=== PATIENT | male | born 1955 | race Asian ===

== ENCOUNTER 2022-03-27 02:49 | Inpatient (IN) | payer OTHER ==
[2022-03-27] VITALS (21 sets, daily range): BP systolic 92–142
[~2022-03-27] VITALS: Ht 175.3 cm; Wt 76.9 kg
[~2022-03-27 02:49] MED LIST: ASA81 PO; BLOO-1360 XX; BUDE0.5A INH; CHOL500013 PO; DIF100 PO; DOXY100C5 PO; INSU100V SQ; INSU100V9 SQ; IPRA3AMP9 INH; LIP20 PO; MULT-1145 PO; PRED20TA PO; TAMS0.4C96 PO; THEO80SO4 PO
--- NOTE | 2022-03-27 02:50 | NUR ---
Placed in room 2 . Placed on security monitor, blood pressure machine and pulse oximeter. To gown for exam. Side rails up. Report given to MIO DOVE.
--- NOTE | 2022-03-27 02:51 | NUR ---
DR. ARAYA AT BEDSIDE
[2022-03-27] MEDS ORDERED: ALBUTEROL SULFATE 0.083% 2.5 MG/3 ML VIAL.NEB INH ONE (03:00)
[2022-03-27] MEDS ORDERED: methylPREDNISolone SOD SUCC/PF 62.5 MG/ML VIAL IVP ONE (03:00)
[2022-03-27] MEDS ORDERED: MAGNESIUM SULFATE 50 ML IV ONE (03:00)
--- NOTE | 2022-03-27 03:11 | NUR ---
RSI DR. ARAYA AT BEDSIDE, MIO RN, CAPRICE RN, MIROSLAVA RT AT BEDSIDE 0311 20MG ETOMIDATE GIVEN IVP BY MIO RN, 100MG SUCCINYLCHOLINE GIVEN IVP BY MIO RN. 0313 7.5 ETT PLACED, 25CM @ LIP, +CO2 COLOR CHANGE, +BREATH SOUNDS AUSCULTATED BILATERALLY, QUIET OVER STOMACH. CXR CALLED FOR CONFIRMATION
[2022-03-27 03:13] LABS: BASOPHILS % (AUTO) 0.2 % (0.0-2.0); EOSINOPHILS # (AUTO) 0.1 K/uL (0.0-0.4); EOSINOPHILS % (AUTO) 0.5 % (0.0-4.0); HEMATOCRIT 38.6 % (36-54); HEMOGLOBIN 12.9 g/dL (14.0-18.0); LYMPHOCYTES % (AUTO) 9.9 % (20.5-51.5); MEAN CORPUSCULAR HEMOGLOBIN 32 pg (27-31); MEAN CORPUSCULAR HGB CONC 34 % (32-36); MEAN CORPUSCULAR VOLUME 95 fL (79.0-98.0); MONOCYTES # (AUTO) 0.7 K/uL (0.0-1.0); MONOCYTES % (AUTO) 3.6 % (1.7-9.3); NEUTROPHILS # (AUTO) 17.2 K/uL (1.8-7.7); NEUTROPHILS % (AUTO) 85.8 % (40.0-70.0); PLATELET COUNT (AUTO) 222 K/uL (130-430); RED BLOOD CELL COUNT(AUTO) 4.08 MIL/uL (4.2-6.2); RED CELL DISTRIBUTION WIDTH 14.8 % (9.0-15.0); WHITE BLOOD COUNT (AUTO) 20.1 K/uL (4.8-10.8)
[2022-03-27] MEDS ORDERED: ETOMIDATE 20 MG/ 10 ML VIAL (AMIDATE) IVP ONE (03:15)
[2022-03-27] MEDS ORDERED: PROPOFOL DRIP 100 ML IV ONE ×2 (03:15→05:30)
[2022-03-27] MEDS ORDERED: SUCCINYLCHOLINE CHLORIDE 20 MG/ML(QUELICIN) IVP ONE (03:15)
[2022-03-27] MEDS ORDERED: cefTRIAXone 1 GM IVPB PREMIX 50 ML IV ONE (03:30)
[2022-03-27] MEDS ORDERED: AZITHROMYCIN 500 MG in NS 250 ML IV ONE (03:30)
--- NOTE | 2022-03-27 03:30 | NUR ---
16 FR OG tube placed. Per MD Michelle, NG tube is in the right spot.
[2022-03-27 03:32] LABS: CALCIUM 8.4 mg/dL (8.4-11.0); CREATININE 0.72 mg/dL (0.55-1.30)
--- NOTE | 2022-03-27 03:33 | NUR ---
COVID AND MRSA SWABS SENT TO LAB
[2022-03-27 03:37] LABS: ALBUMIN 2.5 g/dL (3.4-4.8); TOTAL BILIRUBIN 0.9 mg/dL (0.0-1.0)
[2022-03-27] MEDS ORDERED: AZITHROMYCIN 500 MG/VIAL (ZITHROMAX) IV ONE ×2 (03:44→04:41)
[2022-03-27] MEDS ORDERED: NACL 0.9% 1,000 ML IV ONE ×2 (03:45→04:15)
[2022-03-27] MEDS ORDERED: PROPOFOL 200MG/ 20ML VIAL (DIPRIVAN) IV ONE (03:45)
--- NOTE | 2022-03-27 03:45 | NUR ---
Note cachorro in ED - 03/27/22 at 0420 by [email or web address] 16 FR nichelle placed and draining yellow urine at this time. Urine sample received and sent.
--- NOTE | 2022-03-27 03:53 | NUR ---
# 16 FR Mason catheter with use of sterile technique. Immediate return of 50 cc CLEAR YELLOW urine noted. Bedside drainage bag placed below level of bladder. Urine sample collected and sent to lab. Pt tolerated procedure WELL.
[2022-03-27 04:03] LABS: BILIRUBIN,URINE NEGATIVE (NEGATIVE); CLARITY/URINE CLEAR (CLEAR); COLOR,URINE YELLOW (YELLOW); GLUCOSE,URINE 3+ (NEGATIVE); KETONES,URINE NEGATIVE (NEGATIVE); LEUKOCYTE ESTERASE ,URINE NEGATIVE (NEGATIVE); NITRITE, URINE NEGATIVE (NEGATIVE); PH,URINE 6.5 (5.0-8.0); PROTEIN URINE 2+ (NEGATIVE); UROBILINOGEN,URINE 0.2 (0.2-1.0)
--- NOTE | 2022-03-27 04:22 | NUR ---
Propofol gtt ER supplemental documentation see EMAR as well; 0327 started propofol gtt @ 5mcg/kg/min. (Pt weigh 77.111kg) BP 146/[address] Bolanos admin 10ml/100mg bolus. Pt actively coughing and attempting to self extubate. BP 147/93.HR 153bpm. 0340 BP 77/44 Hr 108bpm. Propofol gtt maintained at 5mcg/kg/min. made aware. Received order for normal saline bolus 30ml per kg. 0400 Propofol titrated to 10MCG/KG/MIN. BP 101/66. HR 141, 98%. 0415 Propofol titrated to 15MG/KG/MIN. 100/65, HR 136, 96%.
[2022-03-27 04:45] LABS: BACTERIA,URINE FEW /HPF (None Seen); BLOOD, URINE TRACE (NEGATIVE); RBC,URINE 0-3 /HPF (0-3)
[2022-03-27 04:46] LABS: MUCUS,URINE None Seen /LPF (None Seen)
--- NOTE | 2022-03-27 04:47 | NUR ---
Propofol infusion; Titrated to 20MCG/KG/min. BP 101/64, 123, 96%
[2022-03-27] MEDS ORDERED: PRED10TA PO (05:22)
[2022-03-27] MEDS ORDERED: D5LR 1,000 ML IV SCH (05:30)
--- NOTE | 2022-03-27 05:32 | NUR ---
Admit bed requested Patient will be admitted to care of Dr. ALVAREZ. Admitted to ICU Diagnosis ACUTE RESPIRATORY FAILURE Inpatient (Yes or No) YES Observation (Yes or No) NO Orientation concerns or request close to nursing station (Yes or No) NO Covid Status NEG On vent or bipap VENTILATOR Isolation requirements NO Needs a sitter NO From Home (Yes or if No enter name of facility) [facility] Requires Dialysis (Yes or No) NO Med Rec Completed (Yes of No) YES
[2022-03-27] MEDS ORDERED: NOREPINEPHRINE BITARTRATE 4 MG in NS 246 ML IV ONE (05:45)
[2022-03-27] MEDS ORDERED: MIDAZOLAM IN NACL,ISO-OSMOT/PF 100 ML IV ONE ×2 (05:47→09:09)
--- NOTE | 2022-03-27 05:50 | NUR ---
Sysystolic BP in the 80's. orders received at this time.
[2022-03-27] MEDS: PIPERACILLIN/TAZO 3.375 GM in NS 50 ML IV SCH ×4 (06:00→23:52)
[2022-03-27] MEDS: NOREPINEPHRINE BITARTRATE 4 MG in NS 246 ML IV PRN ×4 (06:00→23:04)
--- NOTE | 2022-03-27 06:35 | NUR ---
The pt is wiped, cleaned, and repositioned in the bed.
--- NOTE | 2022-03-27 07:10 | NUR ---
No acute changes in the pt's condition. All tubes, lines remain intact at this time. No s/sx of acute distress noted at this time. Report to DERRELL Cunningham
--- NOTE | 2022-03-27 07:15 | NUR ---
ASSUMED PATIENT CARE EYE CLOSE,ON COIN BOX INSPECTOR, PROPOFOL AND LEVOPHEDE ARE INFUSING, OG TUBE AND EMERSON IN PLACE, , PATIENT VENTED, WILL CONTINUE TO MONITOR.
[2022-03-27] MEDS ORDERED: ACETAMINOPHEN 650 MG/20.3 ML UDC GT PRN (07:30)
[2022-03-27] MEDS ORDERED: METOCLOPRAMIDE HCL 10 MG/2 ML VIAL IVP PRN (07:30)
[2022-03-27] MEDS ORDERED: IPRATROPIUM/ALBUTEROL SULFATE 3 ML AMPUL.NEB (DUONEB) INH SCH (07:30)
[2022-03-27] MEDS ORDERED: FUROSEMIDE 20 MG/2 ML VIAL IVP ONE (07:30)
[2022-03-27] MEDS ORDERED: INSULIN REGULAR, HUMAN 10 UNITS/0.1 ML, 3 ML VIAL ONE (07:33)
[2022-03-27] MEDS ORDERED: PIPERACILLIN/TAZOBACTAM 3.375 GM/VIAL (ZOSYN) IV ONE (07:35)
[2022-03-27] MEDS: INSULIN REGULAR, HUMAN 100 UNITS/ML, 3 ML VIAL (humuLIN R) SUBCUT PRN ×3 (07:40→18:30)
[2022-03-27] MEDS ORDERED: INSULIN REGULAR, HUMAN 100 UNITS/ML, 3 ML VIAL (humuLIN R) SUBCUT PRN (08:00)
[2022-03-27] MEDS ORDERED: FUROSEMIDE 20 MG/2 ML VIAL ONE (08:06)
--- NOTE | 2022-03-27 08:30 | NUR ---
ADMITTING PHYSICIAN DR ALVAREZ AT BEDSIDE
[2022-03-27] MEDS ORDERED: BUDESONIDE 0.5 MG/2 ML AMPUL.NEB INH SCH (09:00)
[2022-03-27] MEDS: INSULIN GLARGINE 100 UNITS/ML, 10 ML VIAL SQ SCH ×2 (09:00→21:09)
--- NOTE | 2022-03-27 09:00 | NUR ---
Patient will be admitted to [facility]. Admitted to ICU unit. Will go to room 107. Belongings list completed. Complete and up to date summary report printed. SBAR report to be given at bedside with opportunity for questions.
--- NOTE | 2022-03-27 09:03 | NUR ---
RT NOTES 0903 PT MOVED TO 127A VIA 15L BVM. PT SATURATING 97%. NO INCIDENT HAPPENED. PT HOOKED TO VENT POST TRANSPORT. WILL CONT TO MONITOR PT.
[2022-03-27] MEDS: MIDAZOLAM IN NACL,ISO-OSMOT/PF 100 ML IV PRN (09:19)
[2022-03-27] MEDS ORDERED: MIDAZOLAM IN NACL,ISO-OSMOT/PF 100 ML IV PRN (09:30)
[2022-03-27] MEDS: FLUCONAZOLE 200 mg/ NS 100 ML IV SCH (09:32)
[2022-03-27] MEDS: FUROSEMIDE 20 MG/2 ML VIAL IVP SCH (09:32)
[2022-03-27] MEDS: ASPIRIN 81 MG TAB.CHEW PO SCH (09:33)
[2022-03-27] MEDS: TAMSULOSIN HCL 0.4 MG CAP PO SCH ×2 (09:33→21:07)
[2022-03-27] MEDS: PANTOPRAZOLE SODIUM 40 MG/VIAL (PROTONIX) IVP SCH (09:33)
[2022-03-27] MEDS: METHYLPREDNISOLONE SOD SUCC 40 MG/ML VIAL IVP SCH ×3 (09:34→21:10)
[2022-03-27] MEDS: MULTIVITS,CA,MINERALS/IRON/FA 1 TABLET PO SCH ×2 (09:34→21:08)
[2022-03-27] MEDS: CHOLECALCIFEROL (VITAMIN D3) 2,000 UNIT TABLET PO SCH ×2 (09:34→21:08)
[2022-03-27] MEDS: MAGNESIUM OXIDE 400 MG TABLET PO SCH (09:34)
[2022-03-27] MEDS: ASCORBIC ACID 500 MG TABLET PO SCH ×2 (09:34→21:08)
[2022-03-27] MEDS: ENOXAPARIN SODIUM 40 MG/0.4 ML SYRINGE SUBCUT SCH (09:34)
[2022-03-27] MEDS: PROPOFOL DRIP 100 ML IV PRN ×3 (09:50→23:02)
[2022-03-27] MEDS ORDERED: NOREPINEPHRINE 4 MG/4 ML VIAL IV ONE (09:59)
--- NOTE | 2022-03-27 10:00 | NUR ---
Called Dr. Hess with a consult, spoke with Miroslava from the exchange
[2022-03-27] MEDS: THEOPHYLLINE ANHYDROUS 200 MG TAB.SR.12H PO SCH ×2 (10:35→21:16)
[2022-03-27 11:14] LABS: INR 1.2 (0.80-1.20)
[2022-03-27] MEDS: ALBUTEROL SULFATE 0.083% 2.5 MG/3 ML VIAL.NEB INH SCH ×4 (11:54→23:20)
[2022-03-27] MEDS: IPRATROPIUM BROM 0.5 MG/2.5 ML VIAL.NEB (ATROVENT) INH SCH ×4 (11:55→23:21)
--- NOTE | 2022-03-27 12:00 | NUR ---
GLUCERNA 1.5 TF OGT STARTED AT 20CC/HR. PT HAS 0 RESIDUAL. GOAL RATE OF 50CC/HR. 100CC H20 FLUSH GIVEN, SCHEDULED Q8H.
--- NOTE | 2022-03-27 12:35 | NUR ---
PICC LINE DERRELL COTA AT BEDSIDE. CONSENT SIGNED BY SOON, TELEPHONE CONSENT FROM MD ALVAREZ. T.O. ORDER FOR PICC LINE IN CHART.
[2022-03-27] MEDS ORDERED: LR 1,000 ML IV SCH (19:00)
[2022-03-27] MEDS: LR 1,000 ML IV SCH (19:24)
[2022-03-27] MEDS: BUDESONIDE 0.5 MG/2 ML AMPUL.NEB INH SCH (20:18)
[2022-03-27] MEDS: ATORVASTATIN 20 MG TABLET PO SCH (21:07)
[2022-03-28] VITALS (36 sets, daily range): BP systolic 93–125
[2022-03-28] MEDS: ALBUTEROL SULFATE 0.083% 2.5 MG/3 ML VIAL.NEB INH SCH ×6 (03:05→23:00)
[2022-03-28] MEDS: IPRATROPIUM BROM 0.5 MG/2.5 ML VIAL.NEB (ATROVENT) INH SCH ×6 (03:06→23:00)
[2022-03-28] MEDS: METHYLPREDNISOLONE SOD SUCC 40 MG/ML VIAL IVP SCH ×4 (04:28→21:56)
[2022-03-28] MEDS: MIDAZOLAM IN NACL,ISO-OSMOT/PF 100 ML IV PRN ×2 (04:40→14:40)
[2022-03-28] MEDS: AZITHROMYCIN 500 MG in NS 250 ML IV SCH (05:41)
[2022-03-28] MEDS: PIPERACILLIN/TAZO 3.375 GM in NS 50 ML IV SCH ×4 (05:41→23:36)
[2022-03-28 05:58] LABS: BILIRUBIN,URINE NEGATIVE (NEGATIVE); COLOR,URINE YELLOW (YELLOW); GLUCOSE,URINE 3+ (NEGATIVE); KETONES,URINE NEGATIVE (NEGATIVE); LEUKOCYTE ESTERASE ,URINE NEGATIVE (NEGATIVE); NITRITE, URINE NEGATIVE (NEGATIVE); PROTEIN URINE NEGATIVE (NEGATIVE); UROBILINOGEN,URINE 0.2 (0.2-1.0)
[2022-03-28 06:08] LABS: BLOOD, URINE TRACE (NEGATIVE); CLARITY/URINE HAZY (CLEAR)
[2022-03-28 06:11] LABS: BACTERIA,URINE None Seen /HPF (None Seen); WBC,URINE 0-3 /HPF (0-3)
[2022-03-28 06:17] LABS: HEMATOCRIT 30.6 % (36-54); HEMOGLOBIN 10.1 g/dL (14.0-18.0); LYMPHOCYTES # (AUTO) 1.1 K/uL (1.0-5.5); LYMPHOCYTES % (AUTO) 9.1 % (20.5-51.5); MEAN CORPUSCULAR HEMOGLOBIN 32 pg (27-31); MEAN CORPUSCULAR HGB CONC 33 % (32-36); MEAN CORPUSCULAR VOLUME 96 fL (79.0-98.0); MONOCYTES # (AUTO) 0.3 K/uL (0.0-1.0); MONOCYTES % (AUTO) 2.1 % (1.7-9.3); NEUTROPHILS # (AUTO) 11.2 K/uL (1.8-7.7); NEUTROPHILS % (AUTO) 88.8 % (40.0-70.0); PLATELET COUNT (AUTO) 175 K/uL (130-430); RED BLOOD CELL COUNT(AUTO) 3.18 MIL/uL (4.2-6.2); RED CELL DISTRIBUTION WIDTH 15.3 % (9.0-15.0); WHITE BLOOD COUNT (AUTO) 12.6 K/uL (4.8-10.8)
[2022-03-28] MEDS: PROPOFOL DRIP 100 ML IV PRN ×3 (06:23→18:38)
[2022-03-28] MEDS: NOREPINEPHRINE BITARTRATE 4 MG in NS 246 ML IV PRN (06:25)
--- NOTE | 2022-03-28 06:27 | NUR ---
ALL CARES DONE, REMAINS ON LEVOPHED AND SEDATION RESTRAINTS D/C FULLY SEDATED, FIO2 DOWN TO 50% TOLERATING WELL SATS-98%
[2022-03-28 06:42] LABS: ALBUMIN 1.8 g/dL (3.4-4.8); CREATININE 0.81 mg/dL (0.55-1.30); PHOSPHORUS 3.2 mg/dL (2.7-4.5); TOTAL BILIRUBIN 0.5 mg/dL (0.0-1.0)
[2022-03-28] MEDS: INSULIN REGULAR, HUMAN 100 UNITS/ML, 3 ML VIAL (humuLIN R) SUBCUT PRN ×3 (06:51→17:13)
[2022-03-28 07:04] LABS: CALCIUM 6.8 mg/dL (8.4-11.0)
[2022-03-28] MEDS: BUDESONIDE 0.5 MG/2 ML AMPUL.NEB INH SCH ×2 (07:42→19:56)
[2022-03-28] MEDS: FUROSEMIDE 20 MG/2 ML VIAL IVP SCH ×2 (08:55→21:18)
[2022-03-28] MEDS: FLUCONAZOLE 200 mg/ NS 100 ML IV SCH (08:56)
[2022-03-28] MEDS: INSULIN GLARGINE 100 UNITS/ML, 10 ML VIAL SQ SCH ×2 (08:58→21:16)
[2022-03-28] MEDS: PANTOPRAZOLE SODIUM 40 MG/VIAL (PROTONIX) IVP SCH (08:58)
[2022-03-28] MEDS: ASCORBIC ACID 500 MG TABLET PO SCH ×2 (08:59→21:12)
[2022-03-28] MEDS: MAGNESIUM OXIDE 400 MG TABLET PO SCH (08:59)
[2022-03-28] MEDS: THEOPHYLLINE ANHYDROUS 200 MG TAB.SR.12H PO SCH (08:59)
[2022-03-28] MEDS: ASPIRIN 81 MG TAB.CHEW PO SCH (08:59)
[2022-03-28] MEDS: MULTIVITS,CA,MINERALS/IRON/FA 1 TABLET PO SCH ×2 (08:59→21:11)
[2022-03-28] MEDS: TAMSULOSIN HCL 0.4 MG CAP PO SCH ×2 (08:59→21:09)
[2022-03-28] MEDS: ENOXAPARIN SODIUM 40 MG/0.4 ML SYRINGE SUBCUT SCH (08:59)
[2022-03-28] MEDS: CHOLECALCIFEROL (VITAMIN D3) 2,000 UNIT TABLET PO SCH ×2 (08:59→21:12)
[2022-03-28] MEDS ORDERED: THEOPHYLLINE ANHYDROUS 80 MG/15 ML UDC PO ONE (09:30)
[2022-03-28] MEDS: NOREPINEPHRINE BITARTRATE 8 MG in NS 242 ML IV PRN ×2 (13:20→23:34)
[2022-03-28] MEDS: LR 1,000 ML IV SCH (16:32)
[2022-03-28] MEDS ORDERED: CALCIUM CHLORIDE 1 GM in NS 100 ML IV ONE (19:00)
[2022-03-28] MEDS ORDERED: THEOPHYLLINE ANHYDROUS 80 MG/15 ML UDC PO SCH (21:00)
[2022-03-28] MEDS: ALBUMIN HUMAN 25% 50 ML IV SCH ×2 (21:08→23:35)
[2022-03-28] MEDS: POTASSIUM CHLORIDE 20 MEQ/PKT PACKET PO SCH (21:18)
[2022-03-28] MEDS: ATORVASTATIN 20 MG TABLET PO SCH (21:18)
[2022-03-29] VITALS (34 sets, daily range): BP systolic 87–121
[2022-03-29] MEDS: PROPOFOL DRIP 100 ML IV PRN ×2 (02:25→11:28)
[2022-03-29] MEDS: MIDAZOLAM IN NACL,ISO-OSMOT/PF 100 ML IV PRN (02:26)
[2022-03-29] MEDS: IPRATROPIUM BROM 0.5 MG/2.5 ML VIAL.NEB (ATROVENT) INH SCH ×5 (02:30→20:52)
[2022-03-29] MEDS: ALBUTEROL SULFATE 0.083% 2.5 MG/3 ML VIAL.NEB INH SCH ×5 (02:30→20:52)
[2022-03-29] MEDS: METHYLPREDNISOLONE SOD SUCC 40 MG/ML VIAL IVP SCH ×4 (03:59→23:07)
[2022-03-29] MEDS: ALBUMIN HUMAN 25% 50 ML IV SCH (03:59)
[2022-03-29] MEDS: AZITHROMYCIN 500 MG in NS 250 ML IV SCH (05:39)
[2022-03-29] MEDS: PIPERACILLIN/TAZO 3.375 GM in NS 50 ML IV SCH ×4 (05:39→23:07)
[2022-03-29 06:41] LABS: BASOPHILS % (AUTO) 0.1 % (0.0-2.0); EOSINOPHILS % (AUTO) 0.1 % (0.0-4.0); HEMATOCRIT 24.3 % (36-54); HEMOGLOBIN 8.6 g/dL (14.0-18.0); LYMPHOCYTES # (AUTO) 0.6 K/uL (1.0-5.5); LYMPHOCYTES % (AUTO) 6.6 % (20.5-51.5); MEAN CORPUSCULAR HEMOGLOBIN 33 pg (27-31); MEAN CORPUSCULAR HGB CONC 35 % (32-36); MEAN CORPUSCULAR VOLUME 94 fL (79.0-98.0); MONOCYTES # (AUTO) 0.3 K/uL (0.0-1.0); MONOCYTES % (AUTO) 3.5 % (1.7-9.3); NEUTROPHILS # (AUTO) 7.7 K/uL (1.8-7.7); NEUTROPHILS % (AUTO) 89.7 % (40.0-70.0); PLATELET COUNT (AUTO) 153 K/uL (130-430); RED BLOOD CELL COUNT(AUTO) 2.59 MIL/uL (4.2-6.2); WHITE BLOOD COUNT (AUTO) 8.6 K/uL (4.8-10.8)
[2022-03-29] MEDS: INSULIN REGULAR, HUMAN 100 UNITS/ML, 3 ML VIAL (humuLIN R) SUBCUT PRN ×4 (06:54→20:19)
[2022-03-29 07:11] LABS: ALBUMIN 2.4 g/dL (3.4-4.8); CALCIUM 7.7 mg/dL (8.4-11.0); CREATININE 0.71 mg/dL (0.55-1.30); PHOSPHORUS 2.8 mg/dL (2.7-4.5); TOTAL BILIRUBIN 0.4 mg/dL (0.0-1.0)
[2022-03-29] MEDS: BUDESONIDE 0.5 MG/2 ML AMPUL.NEB INH SCH ×2 (07:14→20:52)
--- NOTE | 2022-03-29 07:14 | NUR ---
REMAINS ON SEDATION WEAN DOWN VERSED TO 5 MG, AND DIPRIVAN TO 25 MCG NOT WAKING UP YET TITRATED LEVOPHED TO 0.03 MCG/KG/MIN. CHG BATH GIVEN TURN AND REPOSITION TO COMFORT, CONT CARE. DR. JACOBSEN NOT ROUNDED OVERNIGHT.
--- NOTE | 2022-03-29 08:18 | NUR ---
PATIENT IN BED, NO SIGNS AND SYMPTOMS OF DISTRESS, GLUCERNA 1.5 RUNNING 50ML/HR, EMERSON DRAINING CLEAR YELLOW URINE, PICC RIGHT UPPER ARM, SKIN INTACT, AT BEDSIDE UPDATED ON PLAN OF CARE, VENT AC 14 TV 500 FIO2 45% PEEP 5. SAFETY MEASURES IN PLACE.
[2022-03-29] MEDS: TAMSULOSIN HCL 0.4 MG CAP PO SCH ×2 (08:36→20:15)
[2022-03-29] MEDS: ENOXAPARIN SODIUM 40 MG/0.4 ML SYRINGE SUBCUT SCH (08:36)
[2022-03-29] MEDS: ASCORBIC ACID 500 MG TABLET PO SCH ×2 (08:36→20:15)
[2022-03-29] MEDS: CHOLECALCIFEROL (VITAMIN D3) 2,000 UNIT TABLET PO SCH ×2 (08:36→20:15)
[2022-03-29] MEDS: MULTIVITS,CA,MINERALS/IRON/FA 1 TABLET PO SCH (08:36)
[2022-03-29] MEDS: FLUCONAZOLE 200 mg/ NS 100 ML IV SCH (08:37)
[2022-03-29] MEDS: PANTOPRAZOLE SODIUM 40 MG/VIAL (PROTONIX) IVP SCH (08:37)
[2022-03-29] MEDS: MAGNESIUM OXIDE 400 MG TABLET PO SCH (08:38)
[2022-03-29] MEDS: ASPIRIN 81 MG TAB.CHEW PO SCH (08:38)
[2022-03-29] MEDS: POTASSIUM CHLORIDE 20 MEQ/PKT PACKET PO SCH ×2 (08:38→20:15)
[2022-03-29] MEDS: FUROSEMIDE 20 MG/2 ML VIAL IVP SCH (08:38)
[2022-03-29] MEDS: INSULIN GLARGINE 100 UNITS/ML, 10 ML VIAL SQ SCH ×2 (08:40→20:19)
--- NOTE | 2022-03-29 13:04 | NUR ---
Dietitian Recommendations * Consider adjusting Glucerna rate to 45 mL/hr (goal) Provides (w/ propofol): 1742 kcal, 89 g PRO, 820 mL free water Meets: 95% est kcal, 98% lower end PRO, 45% est fluid needs * Consider FWF of 150 mL q4h, or per MD BARRAGAN, MPH, RD Please refer to RD Assessment for further details. Thanks! Addendum: 03/29/22 at [address] Amended: Links added.
--- NOTE | 2022-03-29 14:48 | NUR ---
SPOKE WITH ANGEL REQUESTING ORDERS FROM DR. JACOBSEN.
--- NOTE | 2022-03-29 14:53 | NUR ---
DR ALVAREZ ROUNDED ON PATIENT, NOTIFIED OF PATIENT LACK OF RESPONSE TO PAIN STIMULATION ON EXTREMITIES AND FIXED UPWARD GAZE, ORDERED TO HOLD VERSED FOR NOW AND THAT HE WILL COME BACK TO ASSESS THE PATIENT. ALSO ORDERED TO PAGE DR JACOBSEN BECAUSE HE HAS NOT ROUNDED ON THE PATIENT AND OR MADE A NOTE WITH RECOMMENDATIONS. VERSED ON HOLD NOW.
--- NOTE | 2022-03-29 15:06 | NUR ---
SPOKE WITH DR JACOBSEN, GAVE UPDATE OVER THE PHONE ON PATIENT STATUS, ORDERED ABG. CALLED RT AND MADE AWARE OF ABG ORDER.
--- NOTE | 2022-03-29 16:05 | NUR ---
RT NOTES Per Rn, Dr Stanford was made aware of increased PIP, stated previous scan/test indicated fibrosis.
--- NOTE | 2022-03-29 17:44 | NUR ---
DR ALVAREZ ROUNDED ON PATIENT, MADE AWARE OF LACK OF PAIN RESPONSE IN EXTREMITIES AND FIXED UPWARD GAZE AND THAT VERSED IS OFF AND PROPOFOL IS RUNNING AT 20MCG/KG/MIN. ORDERED TO CONTINUE WEANING SEDATION.
--- NOTE | 2022-03-29 19:30 | NUR ---
PM ASSESSMENT REPORT RECEIVED FROM AM RN. PT RECEIVED IN BED WITH EYES CLOSED, SEDATED. VSS, NO S/S OF ACUTE DISTRESS NOTED. PT INTUBATED, VENT SETTINGS: AC 14, TV 500, FIO2 40%, +5. KETURAH PICC IN PLACE PATENT AND INTACT, 20G PIV TO L/R HAND AND RAC PATENT AND INTACT. OGT IN PLACE INFUSING TF PER ORDERS. EMERSON CATH DRAINING URINE TO GRAVITY. HOB ELEVATED, BED LOCKED IN LOWEST POSITION, CALL LIGHT IN REACH, WILL CONTINUE TO MONITOR PT.
[2022-03-29] MEDS: ATORVASTATIN 20 MG TABLET PO SCH (20:15)
--- NOTE | 2022-03-29 21:11 | NUR ---
DR. ANN-MARIE GARNICA AT BEDSIDE. UPDATES PROVIDED.
--- NOTE | 2022-03-29 22:15 | NUR ---
PT HAD LARGE AMOUNT OF STOOL AT THIS TIME. DUYEN CARE PROVIDED AND LINENS CHANGED. CHG BATH GIVEN. PT TOLERATED WELL.
[2022-03-29] MEDS ORDERED: METHYLPREDNISOLONE SOD SUCC 40 MG/ML VIAL ONE (23:09)
[2022-03-30] VITALS (31 sets, daily range): BP systolic 95–142
[2022-03-30] MEDS: PROPOFOL DRIP 100 ML IV PRN ×2 (00:09→06:14)
[2022-03-30] MEDS: AZITHROMYCIN 500 MG in NS 250 ML IV SCH (05:00)
[2022-03-30] MEDS: PIPERACILLIN/TAZO 3.375 GM in NS 50 ML IV SCH ×3 (05:01→18:07)
--- NOTE | 2022-03-30 05:15 | NUR ---
BM PT HAD LARGE BM AT THIS TIME. DUYEN CARE PROVIDED AND LINENS CHANGED.
[2022-03-30 06:07] LABS: BASOPHILS % (AUTO) 0.1 % (0.0-2.0); HEMATOCRIT 27.9 % (36-54); HEMOGLOBIN 9.6 g/dL (14.0-18.0); LYMPHOCYTES # (AUTO) 0.6 K/uL (1.0-5.5); LYMPHOCYTES % (AUTO) 8.5 % (20.5-51.5); MEAN CORPUSCULAR HEMOGLOBIN 33 pg (27-31); MEAN CORPUSCULAR HGB CONC 34 % (32-36); MEAN CORPUSCULAR VOLUME 96 fL (79.0-98.0); MONOCYTES # (AUTO) 0.3 K/uL (0.0-1.0); MONOCYTES % (AUTO) 3.5 % (1.7-9.3); NEUTROPHILS # (AUTO) 6.5 K/uL (1.8-7.7); NEUTROPHILS % (AUTO) 87.9 % (40.0-70.0); PLATELET COUNT (AUTO) 144 K/uL (130-430); RED BLOOD CELL COUNT(AUTO) 2.91 MIL/uL (4.2-6.2); RED CELL DISTRIBUTION WIDTH 15.5 % (9.0-15.0); WHITE BLOOD COUNT (AUTO) 7.4 K/uL (4.8-10.8)
[2022-03-30] MEDS: INSULIN REGULAR, HUMAN 100 UNITS/ML, 3 ML VIAL (humuLIN R) SUBCUT PRN ×3 (06:14→18:11)
[2022-03-30 06:37] LABS: CALCIUM 7.3 mg/dL (8.4-11.0); CREATININE 0.59 mg/dL (0.55-1.30); PHOSPHORUS 2.7 mg/dL (2.7-4.5)
--- NOTE | 2022-03-30 07:00 | NUR ---
-Open note: Received report for the slot shift supervisor Tata DOVE, pt 66 years old was admitted to [facility] back in Feb . At that time, he was diagnosed with community-acquired pneumonia post viral pneumonia. Pt was extubated and was sent to the [facility] for Physical Therapy. He was brought to the Emergency Room on secondary on 03-27-22 to shortness of breath and respiratory distress, and was admitted to the ICU. Pt was intubated on 03-27-22 7.5cm, at 24 at lip, setting of 14AC, 500V, 35% O2, PEEP 5. Rt upper midline double lumen running Diprivan at 25mcg/kg/min, right hand peripheral 20G running DKO 5ml/hr, and left IV peripheral. OG tube running Glucerna 1.5cal @55ml/hr with Q4hr 150cc.Pt with Mason.
[2022-03-30] MEDS: ALBUTEROL SULFATE 0.083% 2.5 MG/3 ML VIAL.NEB INH SCH ×5 (07:20→22:40)
[2022-03-30] MEDS: IPRATROPIUM BROM 0.5 MG/2.5 ML VIAL.NEB (ATROVENT) INH SCH ×5 (07:20→22:40)
[2022-03-30] MEDS: BUDESONIDE 0.5 MG/2 ML AMPUL.NEB INH SCH ×2 (07:21→20:15)
--- NOTE | 2022-03-30 07:29 | NUR ---
SPOKE WITH MUNIR REQUESTING ORDERS FROM DR. JACOBSEN.
--- NOTE | 2022-03-30 07:29 | NUR ---
RT at bed side, order for cpap need to be verified with Dr. Stanford. Dr. Stanford was page, waiting for respond.
--- NOTE | 2022-03-30 07:29 | NUR ---
RT NOTES Spoke to Rn regarding concerns about the CPAP order. Clarification of order is warranted before proceeding with the SBT.
--- NOTE | 2022-03-30 07:45 | NUR ---
and daughter at bedside, status update given.
[2022-03-30] MEDS: CHOLECALCIFEROL (VITAMIN D3) 2,000 UNIT TABLET PO SCH ×2 (08:23→21:00)
[2022-03-30] MEDS: TAMSULOSIN HCL 0.4 MG CAP PO SCH ×2 (08:23→21:00)
[2022-03-30] MEDS: MULTIVITS,CA,MINERALS/IRON/FA 1 TABLET PO SCH (08:23)
[2022-03-30] MEDS: METHYLPREDNISOLONE SOD SUCC 40 MG/ML VIAL IVP SCH ×2 (08:24→18:08)
[2022-03-30] MEDS: ENOXAPARIN SODIUM 40 MG/0.4 ML SYRINGE SUBCUT SCH (08:26)
[2022-03-30] MEDS: POTASSIUM CHLORIDE 20 MEQ/PKT PACKET PO SCH (08:26)
[2022-03-30] MEDS: PANTOPRAZOLE SODIUM 40 MG/VIAL (PROTONIX) IVP SCH (08:26)
[2022-03-30] MEDS: ASPIRIN 81 MG TAB.CHEW PO SCH (08:26)
[2022-03-30] MEDS: ASCORBIC ACID 500 MG TABLET PO SCH ×2 (08:27→21:00)
[2022-03-30] MEDS: MAGNESIUM OXIDE 400 MG TABLET PO SCH (08:27)
[2022-03-30] MEDS: INSULIN GLARGINE 100 UNITS/ML, 10 ML VIAL SQ SCH ×2 (08:33→21:19)
[2022-03-30] MEDS: FLUCONAZOLE 200 mg/ NS 100 ML IV SCH (08:34)
--- NOTE | 2022-03-30 08:49 | NUR ---
SPOKE WITH MUNIR FOLLOWING UP FOR ORDERS FROM DR. JACOBSEN.
--- NOTE | 2022-03-30 08:55 | NUR ---
RT NOTES Coordinated with RN, vent to cpap 5 ps 12. no adverse reactions noted. will monitor pt.
--- NOTE | 2022-03-30 08:55 | NUR ---
RT at bedside, Diprivan stopped will start cpap.
[2022-03-30] MEDS ORDERED: FUROSEMIDE 20 MG/2 ML VIAL IVP SCH (09:00)
--- NOTE | 2022-03-30 10:55 | NUR ---
RT NOTES about to draw ABG, 2 hours post cpap, RN at bedside coaching pt to remain calm. pt appears short of breath, but would calm down when Rn asks him to relax. At 1100 vent back to AC post ABG draw.
--- NOTE | 2022-03-30 11:00 | NUR ---
RT at bedside, pt went back on AC.
--- NOTE | 2022-03-30 11:22 | NUR ---
SPOKE WITH CASTILLO REQUESTING ORDERS FROM DR. JACOBSEN.
--- NOTE | 2022-03-30 13:34 | NUR ---
PT on T-Bar per DR. Stanford for 30 minutes
--- NOTE | 2022-03-30 13:34 | NUR ---
REPORTED NEW ABG RESULTS TO MD JACOBSEN. PER , HOLD OGT FEEDING FOR 1 HOUR, T-BAR ON VENT FOR 30 MINS, IF VSS, NAD NOTED, PT ALERT AND FOLLOWING COMMANDS, OK TO EXTUBATE.
--- NOTE | 2022-03-30 13:34 | NUR ---
RT at bedside, per Dr. Stanford to hold feeding for 1hr, stop diprivan, monitor vs, if pt is responding and not distress, pt can be extubated.
--- NOTE | 2022-03-30 13:44 | NUR ---
RT NOTES will coordinate tbar with RN
[2022-03-30 14:03] LABS: TOTAL IRON BIND. CAPACITY 155 ug/dL (250-450)
--- NOTE | 2022-03-30 14:45 | NUR ---
RT AT BEDSIDE PT IS EXTUBATED.
--- NOTE | 2022-03-30 15:30 | NUR ---
Wound Evaluation: Wound Consult ordered for Low Carlitos Score. Patient evaluated for a low Carlitos score of an 11. Patient was awake, lethargic, sedated, on ET tube to vent, responded to verbal greeting by raising index finger on right hand, and received in a [facility] Bed with an Isoflex SANJIV mattress, low air loss therapy was initiated. Patient needs to be turned in bed. Skin is intact. Recommend reposition patient side to side only every 2 hours with pillow support. Elevate, off-load and float bilateral heels with pillows. Offload pressure areas with pillows for pressure re-distribution. Perform skin care and monitor skin integrity Q shift. Use moisture barrier cream on moisture susceptible areas QID and PRN for soiling. Maintain patient on a low air-loss mattress.
--- NOTE | 2022-03-30 15:40 | NUR ---
RT NOTES Coordinated with RN, per order, pt to tbar 35% initially, sat 89-90%, increase FIO2 TO 0.40, improved 92-93%. Oral sxn done before cuff deflation. No immediate adverse reactions noted. Pt. nods appropriately. @1607 no distress noted H.R 104 R.R 29 sat 93%
--- NOTE | 2022-03-30 16:45 | NUR ---
RT NOTES extubation Pt tolerated tbar for 1 hour. Coordinated with Rn, per order, pt is alert, nodding appropriately, pt was extubated and placed on HFNC 25L 45%. oral and ETT sxn done prior to extubation. No adverse reactions noted. will monitor pt
--- NOTE | 2022-03-30 17:22 | NUR ---
RT NOTES Pt cont. to tolerate HFNC sat 93% H.r 104 R.R 24. No distress noted. Rn at bedside, cleaning pt.
--- NOTE | 2022-03-30 18:00 | NUR ---
meds were given late, pt was being extubated.
[2022-03-30] MEDS: ATORVASTATIN 20 MG TABLET PO SCH (21:00)
[2022-03-31] VITALS (13 sets, daily range): BP systolic 105–150
[2022-03-31] MEDS: PIPERACILLIN/TAZO 3.375 GM in NS 50 ML IV SCH ×4 (00:58→17:48)
[2022-03-31] MEDS: METHYLPREDNISOLONE SOD SUCC 40 MG/ML VIAL IVP SCH ×3 (01:03→17:48)
[2022-03-31] MEDS: IPRATROPIUM BROM 0.5 MG/2.5 ML VIAL.NEB (ATROVENT) INH SCH ×6 (03:15→23:19)
[2022-03-31] MEDS: ALBUTEROL SULFATE 0.083% 2.5 MG/3 ML VIAL.NEB INH SCH ×6 (03:15→23:18)
--- NOTE | 2022-03-31 04:45 | NUR ---
End of Shift Note: Reports received from the hvac mechanical engineer at 2009. Pt GCS 14, RASS -1, little drowsy, however, pt's mentation improved overnight to GCS 15, RASS 0, following commands and answering appropriately to questions asked. Language barrier present, however, when communicated in pt's [place] language Polish, he is fully alert and oriented x3. Pt desats down to low 80s% SpO2 upon removal of HFNC. Failed the nursing bedside swallow eval in the beginning of shift with coughs on 30ml sip of water, but on the second and third attempt at 0100 and 0400, pt passed the eval without any presence of coughing. Otherwise, no acute overnight events or issues. Will continue to monitor.
[2022-03-31 06:15] LABS: HEMATOCRIT 32.6 % (36-54); HEMOGLOBIN 10.9 g/dL (14.0-18.0); LYMPHOCYTES # (AUTO) 0.7 K/uL (1.0-5.5); LYMPHOCYTES % (AUTO) 7.9 % (20.5-51.5); MEAN CORPUSCULAR HEMOGLOBIN 33 pg (27-31); MEAN CORPUSCULAR HGB CONC 33 % (32-36); MEAN CORPUSCULAR VOLUME 97 fL (79.0-98.0); MONOCYTES # (AUTO) 0.3 K/uL (0.0-1.0); MONOCYTES % (AUTO) 3.3 % (1.7-9.3); NEUTROPHILS # (AUTO) 7.5 K/uL (1.8-7.7); NEUTROPHILS % (AUTO) 88.8 % (40.0-70.0); PLATELET COUNT (AUTO) 154 K/uL (130-430); RED BLOOD CELL COUNT(AUTO) 3.35 MIL/uL (4.2-6.2); RED CELL DISTRIBUTION WIDTH 15.6 % (9.0-15.0); WHITE BLOOD COUNT (AUTO) 8.4 K/uL (4.8-10.8)
[2022-03-31] MEDS: DEXTROSE 50% JECT 50 ML DISP.SYRIN IVP PRN ×2 (06:24→09:32)
[2022-03-31] MEDS: AZITHROMYCIN 500 MG in NS 250 ML IV SCH (06:25)
[2022-03-31 06:54] LABS: CALCIUM 7.5 mg/dL (8.4-11.0); CREATININE 0.4 mg/dL (0.55-1.30)
--- NOTE | 2022-03-31 07:00 | NUR ---
-Open note: Received report for the mine shifter RN, pt 66 years old was admitted to [facility] back in Feb . At that time, he was diagnosed with community-acquired pneumonia post viral pneumonia. Pt was extubated and was sent to the [facility] for Physical Therapy. He was brought to the Emergency Room on secondary on 03-27-22 to shortness of breath and respiratory distress, and was admitted to the ICU. Pt was extubated on 03-30-22, pt on high flow running at 20l, 40% O2 nasal cannula, Rt upper midline double lumen running running DKO 5ml/hr, pt in bed comfortable no s/sx of distress.
--- NOTE | 2022-03-31 07:30 | NUR ---
RT at bedside, pt high flow is 15l, 35%.
[2022-03-31] MEDS: BUDESONIDE 0.5 MG/2 ML AMPUL.NEB INH SCH ×2 (07:36→20:03)
--- NOTE | 2022-03-31 08:00 | NUR ---
at bed side, status update given.
[2022-03-31 08:06] LABS: FOLATE (FOLIC ACID) 9.9 ng/mL (>3.0)
[2022-03-31] MEDS: ASCORBIC ACID 500 MG TABLET PO SCH ×2 (08:13→21:28)
[2022-03-31] MEDS: ENOXAPARIN SODIUM 40 MG/0.4 ML SYRINGE SUBCUT SCH (08:13)
[2022-03-31] MEDS: PANTOPRAZOLE SODIUM 40 MG/VIAL (PROTONIX) IVP SCH (08:13)
[2022-03-31] MEDS: ASPIRIN 81 MG TAB.CHEW PO SCH (08:14)
[2022-03-31] MEDS: TAMSULOSIN HCL 0.4 MG CAP PO SCH ×2 (08:14→21:28)
[2022-03-31] MEDS: CHOLECALCIFEROL (VITAMIN D3) 2,000 UNIT TABLET PO SCH ×2 (08:14→21:28)
[2022-03-31] MEDS: MULTIVITS,CA,MINERALS/IRON/FA 1 TABLET PO SCH (08:14)
[2022-03-31] MEDS: INSULIN GLARGINE 100 UNITS/ML, 10 ML VIAL SQ SCH ×2 (09:00→21:40)
--- NOTE | 2022-03-31 09:00 | NUR ---
Pt is following commands, no distress at this time.
--- NOTE | 2022-03-31 09:45 | NUR ---
Pt blood sugar low, contact Dr. Juarez new order was giving for D10 running at 100ml/hr.
[2022-03-31] MEDS ORDERED: D10W 250 ML IV SCH (10:00)
[2022-03-31] MEDS: D10W 1,000 ML IV SCH ×2 (11:03→20:15)
--- NOTE | 2022-03-31 11:18 | NUR ---
RT NOTES 0735 HI FLOW RATE TO 15L 0815 TItrated fio2 to .35 rn aware sat 93% RN placed flow and fio2 back to 20L 40% due to desaturation. pt satting 94% Addendum: 03/31/22 at 1121 by Beverly Greenberg RT Amended: Links added.
--- NOTE | 2022-03-31 13:45 | NUR ---
COVERING FOR PRIMARY RN DUY ON LUNCH, REPORT GIVEN TO IVAN MARQUEZ. ALL QUESTIONS ANSWERED. PT VSS. NAD NOTED. TO TRANSFER PT TO [facility] BED, THEN TO ROOM 111A. WILL CONT TO MONITOR PT.
[2022-03-31] MEDS: INSULIN REGULAR, HUMAN 100 UNITS/ML, 3 ML VIAL (humuLIN R) SUBCUT PRN ×2 (14:02→21:41)
--- NOTE | 2022-03-31 14:10 | NUR ---
Dr. Juarez called for new orders, will carry before pt transfer to med-surg unit.
--- NOTE | 2022-03-31 14:33 | NUR ---
Transfer Patient Received patient from ICU nurse: Maddi. Patient awake in bed eyes open. A/O x 3, speaks Wolof. Breath is even and unlabored on Venti-Mask 12LPM at 40%. No SOB, No pain, No distress noted. RTs are at bedside trying to switch him to oxymizer. Patient has PICC line to R upper Arm, patent and on infusion pump, currently receiving IV atb. Patient has steward draining yellow urine to gravity. Patient oriented to room, call light within reach. All needs met and safety checks in place. Bed is locked in lowest position. Will continue to monitor.
--- NOTE | 2022-03-31 16:15 | NUR ---
ROUNDS: Patient in bed resting. Breath is even and unlabored on Venti-Mask 6LPM at 40%. No SOB, No pain, No distress noted. Call light within reach. All needs met and safety checks in place. Bed is locked in lowest position. Will continue to monitor.
--- NOTE | 2022-03-31 17:22 | NUR ---
ST EVALUATION COMPLETED. ST TX NOT INDICATED AT THIS TIME. RECOMMEND PO DIET OF MECHANICAL SOFT AND THIN LIQUIDS. ASSISTANCE NEEDED AND FULL ASPIRATION PRECAUTIONS.
--- NOTE | 2022-03-31 17:36 | NUR ---
RT NOTES 1605 [facility] PLACED PT ON .50 VENTI MASK. THEN CHANGED PT TO 6L OXYMIZER, SAT 98%, RN AWARE WILL CONT TO MONITOR. Addendum: 03/31/22 at 1738 by Beverly Greenberg RT Amended: Links added.
--- NOTE | 2022-03-31 18:44 | NUR ---
CLOSING NOTE Patient in bed resting. A/O x 3, speaks Turkish. Breath is even and unlabored on Oxymizer 6LPM at 40%. No SOB, No pain, No distress noted. Patient has PICC line to R upper Arm, patent and on infusion pump, currently receiving IV atb. Patient has steward draining yellow urine to gravity. Call light within reach. All needs met and safety checks in place. Bed is locked in lowest position. Will endorse to mold shifter nurse.
[2022-03-31] MEDS: ATORVASTATIN 20 MG TABLET PO SCH (21:00)
[2022-04-01] MEDS: PIPERACILLIN/TAZO 3.375 GM in NS 50 ML IV SCH ×2 (01:15→06:34)
[2022-04-01] MEDS: IPRATROPIUM BROM 0.5 MG/2.5 ML VIAL.NEB (ATROVENT) INH SCH ×6 (03:00→22:55)
[2022-04-01] MEDS: ALBUTEROL SULFATE 0.083% 2.5 MG/3 ML VIAL.NEB INH SCH ×6 (03:00→22:55)
[2022-04-01] MEDS: METHYLPREDNISOLONE SOD SUCC 40 MG/ML VIAL IVP SCH ×2 (06:34→17:58)
[2022-04-01] MEDS: INSULIN REGULAR, HUMAN 100 UNITS/ML, 3 ML VIAL (humuLIN R) SUBCUT PRN ×2 (06:44→12:01)
[2022-04-01] MEDS: D10W 1,000 ML IV SCH ×2 (06:44→12:07)
[2022-04-01] MEDS: BUDESONIDE 0.5 MG/2 ML AMPUL.NEB INH SCH ×2 (07:07→20:05)
[2022-04-01 07:28] LABS: BASOPHILS % (AUTO) 0.1 % (0.0-2.0); HEMOGLOBIN 9.9 g/dL (14.0-18.0); LYMPHOCYTES # (AUTO) 1.9 K/uL (1.0-5.5); LYMPHOCYTES % (AUTO) 20.1 % (20.5-51.5); MEAN CORPUSCULAR HEMOGLOBIN 32 pg (27-31); MEAN CORPUSCULAR HGB CONC 34 % (32-36); MEAN CORPUSCULAR VOLUME 95 fL (79.0-98.0); MONOCYTES # (AUTO) 0.3 K/uL (0.0-1.0); MONOCYTES % (AUTO) 3.1 % (1.7-9.3); NEUTROPHILS # (AUTO) 7.3 K/uL (1.8-7.7); NEUTROPHILS % (AUTO) 76.7 % (40.0-70.0); PLATELET COUNT (AUTO) 142 K/uL (130-430); RED BLOOD CELL COUNT(AUTO) 3.04 MIL/uL (4.2-6.2); RED CELL DISTRIBUTION WIDTH 15.4 % (9.0-15.0); WHITE BLOOD COUNT (AUTO) 9.6 K/uL (4.8-10.8)
[2022-04-01 08:00] VITALS: BP_SYST 104
[2022-04-01 08:11] LABS: ALBUMIN 2.1 g/dL (3.4-4.8); CALCIUM 7.6 mg/dL (8.4-11.0); CREATININE 0.64 mg/dL (0.55-1.30); TOTAL BILIRUBIN 0.5 mg/dL (0.0-1.0)
--- NOTE | 2022-04-01 08:30 | NUR ---
Opening Notes Patient is AOx3. Romanian speaking but understands and speaks little Kenyan. Patient's breathing is even dn nonlabored on Oxymizer at 6 L O2. Spo2 fluctuates mid 80's- low 90's %. RT with patient. No ss of distress noted. Patient denies pain. Patient has KETURAH PICC line. Vital signs obtained, as documented. Patient has been cleaned and repositioned, is now eating breakfast. at bedside. Mason catheter draining by gravity. Bed is locked, alarm on, and at lowest position. Call light within reach.
--- NOTE | 2022-04-01 09:13 | NUR ---
RT NOTE: 0913 HFNC unit is alarming and continued to alarm despite trouble shooting. Pt placed on 8LPM oxymizer, RR 20, HR 77, SpO2 95%. Patient appears to be tolerating oxymizer well. Will keep patient on oxymizer.
[2022-04-01] MEDS: MULTIVITS,CA,MINERALS/IRON/FA 1 TABLET PO SCH (09:57)
[2022-04-01] MEDS: TAMSULOSIN HCL 0.4 MG CAP PO SCH ×2 (09:57→21:30)
[2022-04-01] MEDS: CHOLECALCIFEROL (VITAMIN D3) 2,000 UNIT TABLET PO SCH ×2 (09:57→21:31)
[2022-04-01] MEDS: ENOXAPARIN SODIUM 40 MG/0.4 ML SYRINGE SUBCUT SCH (09:57)
[2022-04-01] MEDS: ASCORBIC ACID 500 MG TABLET PO SCH ×2 (09:57→21:30)
[2022-04-01] MEDS: ASPIRIN 81 MG TAB.CHEW PO SCH (09:57)
[2022-04-01] MEDS: PANTOPRAZOLE SODIUM 40 MG/VIAL (PROTONIX) IVP SCH (10:04)
[2022-04-01] MEDS: INSULIN GLARGINE 100 UNITS/ML, 10 ML VIAL SQ SCH ×2 (10:07→21:00)
[2022-04-01 12:00] VITALS: BP_SYST 112
--- NOTE | 2022-04-01 12:00 | NUR ---
Notes Patient is eating lunch. Tolerating Oxymizer well at 8 L O2. No ss of distress noted. Patient denies pain. Safety precautions in place and call light within each.
[2022-04-01 16:00] VITALS: BP_SYST 114
--- NOTE | 2022-04-01 16:00 | NUR ---
Notes Dr. Juarez saw and spoke to patient at bedside. Per MD, IVF to be discontinued. PICC line to be HL. No ss of distress noted. Patient denies pain. Safety precautions in place and isidro light within reach.
--- NOTE | 2022-04-01 18:56 | NUR ---
Closing Notes No ss of distress noted. Patient tolerating Oxymizer well on 8 L O2. Breathing is even and nonlabored. No SOB noted. Denies pain. D/C Mason catheter. Patient is eating dinner. Patient is stable. All needs met. Bed is locked, alarm on, and lowest position. Call light within reach.
[2022-04-01 19:25] VITALS: BP_SYST 104
--- NOTE | 2022-04-01 19:25 | NUR ---
PM ASSESSMENT; - Patient is awake, alert, oriented X2-3. Patient oriented to hospital room, call light, toileting, pain management and safety-teach back done. Pt is on Oxymizer @ 7 oxy f6ldx=02-80%. All safety measures in place,side rails x3, call light within reach. Cont to monitor pt.
[2022-04-01] MEDS: ATORVASTATIN 20 MG TABLET PO SCH (21:30)
--- NOTE | 2022-04-01 21:35 | NUR ---
NOTES; BLOOD SUGAR= 56 & 52, GAVE D50% IVP AMPULE -Pt is asymptomatic, no s/s any hypoglycemic effect. Pt is alerted, awakes. Will recheck BS within 15 mins. cont to monitor pt.
[2022-04-01] MEDS: DEXTROSE 50% JECT 50 ML DISP.SYRIN IVP PRN (21:36)
--- NOTE | 2022-04-01 21:37 | NUR ---
RT NOTES. PLACED ON HIGH FLOW DUE TO DESATURATION IN HIGH 80S. 25L 40%. PT TOLERATING WELL. NO RESP. DISTRESS NOTED. WILL CONTINUE TO MONITOR.
--- NOTE | 2022-04-01 22:50 | NUR ---
NOTES; BLOOD SUGAR=92. -Pt is resting in bed, no s/s any acute distress or hypoglycemic effect. Cont to monitor pt.
[2022-04-02] VITALS (21 sets, daily range): BP systolic 110–161
--- NOTE | 2022-04-02 02:13 | NUR ---
PAGED DR. JACOBSEN, P REGARDING PT IS ON HIGH FLOW OXY 40 L, FIO2=80%, T6XGT=44%. -CLARISSE-RT had been adjusting from oximizer 8 Liter desat 87-88% to flow oxy 40 L, fio2=80%,f7lnr=44%. Paged Dr. Jacobsen if wants to transfer pt to ICU unit d/t pt requires high flow at oxy 40 L, fio2=80%. Pt is non labored breathing but seem lethargy noted. VS 97.3, 16, 110/68,87,n6lgm=52%, SR at 90 bpm. Still waiting for md to return call back. Cont to monitor pt.
--- NOTE | 2022-04-02 02:13 | NUR ---
Paged Dr. Stanford s/w Apryl
--- NOTE | 2022-04-02 02:42 | NUR ---
Yves Juarez s/w Mary
--- NOTE | 2022-04-02 02:42 | NUR ---
Paged Dr. Juarez b/c still waiting for Dr. Stanford to callback -Paged Dr. Juarez to transfer pt to ICU unit d/t pt requires high flow at oxy 40 L, fio2=80%,y1cam=11%. Pt awakes, resting in bed, no s/s any acute distress noted. Still waiting for md to return call back. Cont to monitor pt.
[2022-04-02] MEDS: DEXTROSE 50% JECT 50 ML DISP.SYRIN IVP PRN ×2 (02:50→05:53)
--- NOTE | 2022-04-02 02:50 | NUR ---
BLOOD SUGAR IS 55, GAVE D50% IVP. Pt is diaphoretic, awakes, alerted, pt refused to take juice or sugar water. Gave D50% IVP. will recheck blood sugar w/in 15mins. Cont to monitor pt.
--- NOTE | 2022-04-02 03:12 | NUR ---
NOTES; NOTIFIED DR. JACOBSEN, P REGARDING PT IS ON HIGH FLOW OXY 40 L, FIO2=80%, T8UOS=54%. -Notifed to Dr. Jacobsen that CLARISSE-RT had adjusted for 2 hrs from oximizer 8 Liter desat 87-88% to flow oxy 40 L, fio2=80%,w3mcm=31%. Transfer pt to ICU unit per Dr. Jacobsen. Omid charge nurse informed and will notify [facility] regarding needs high level of care. checked [id number] now.
--- NOTE | 2022-04-02 03:36 | NUR ---
NOTES; INCONT OF BOWEL MOVT -Pt is incont both urine and bowel movt, large loose stool, provided perineal care and barrier cream applied, now pt is cleaned and dry. PT IS ON HIGH FLOW OXY 40 L, FIO2=80%, F0KVD=08-33%. will call ICU charge nurse when can transfer pt to ICU bed 8. Addendum: 04/02/22 at 0339 by [employer] DERRELL Garcia RN vital signs= 132/72,94, 86-88% with high flow 40 L, fio2=80%.
[2022-04-02] MEDS: ALBUTEROL SULFATE 0.083% 2.5 MG/3 ML VIAL.NEB INH SCH ×6 (03:57→23:09)
[2022-04-02] MEDS: IPRATROPIUM BROM 0.5 MG/2.5 ML VIAL.NEB (ATROVENT) INH SCH ×6 (03:57→23:09)
--- NOTE | 2022-04-02 04:05 | NUR ---
PT TRANSFERRED Report given to Denise at ICU bed 8 via bed. Pt is alerted, awakes, oriented. Louis-kurt therapistOmid charge nurse assisting to transfer pt to ICU unit. Pt is in no distress. Pt's condition stable. Endorsed to Denise to continuity care.
--- NOTE | 2022-04-02 04:13 | NUR ---
Received transfer from [facility] patient awake alert on 02 via OXYMIZER 80 % 40 LPM 02 SAT 90 % HOB ELEVATED RESPIRATIONS REGULAR ALSO UNLABORED / hx of DM will continue to monitor / .
--- NOTE | 2022-04-02 05:23 | NUR ---
Patient awake alert HOB elevated 02 SAT 94 % High Flow 02 Respirations Regular also unlabored assist for position change & tolerated comfort measures implemented no SOB noted call waddell given to patient / .
[2022-04-02] MEDS: METHYLPREDNISOLONE SOD SUCC 40 MG/ML VIAL IVP SCH ×2 (05:52→19:30)
--- NOTE | 2022-04-02 06:00 | NUR ---
D 50 ONE AMP GIVEN BSG @ 48 mg dl patient awake & alert verbally Responsive / .
--- NOTE | 2022-04-02 06:30 | NUR ---
Recheck of BSG is @ 112 mg dl
--- NOTE | 2022-04-02 06:31 | NUR ---
Phoned paged DR KIM GARNICA FOR UPDATE
[2022-04-02] MEDS: BUDESONIDE 0.5 MG/2 ML AMPUL.NEB INH SCH ×2 (07:07→20:20)
--- NOTE | 2022-04-02 08:00 | NUR ---
RT NOTES Placed pt on NRM, sat remains low despite being coached on deep-breathing with 's help. @0823 sat 94%
[2022-04-02] MEDS: PANTOPRAZOLE SODIUM 40 MG/VIAL (PROTONIX) IVP SCH (08:58)
[2022-04-02] MEDS: ASPIRIN 81 MG TAB.CHEW PO SCH (08:58)
[2022-04-02] MEDS: TAMSULOSIN HCL 0.4 MG CAP PO SCH ×2 (08:58→20:43)
[2022-04-02] MEDS: ASCORBIC ACID 500 MG TABLET PO SCH ×2 (08:58→20:42)
[2022-04-02] MEDS: MULTIVITS,CA,MINERALS/IRON/FA 1 TABLET PO SCH (08:59)
[2022-04-02] MEDS: INSULIN GLARGINE 100 UNITS/ML, 10 ML VIAL SQ SCH ×2 (09:00→20:46)
[2022-04-02] MEDS: ENOXAPARIN SODIUM 40 MG/0.4 ML SYRINGE SUBCUT SCH (09:04)
[2022-04-02] MEDS: CHOLECALCIFEROL (VITAMIN D3) 2,000 UNIT TABLET PO SCH ×2 (09:04→20:43)
--- NOTE | 2022-04-02 09:28 | NUR ---
STAFF FROM LAB REQUESTED BLOOD DRAW FROM PICC FOR SAMPLE. BLOOD RETURN POOR. NOTIFIED PLATING STRIPPER TRACEY. LAB TO ATTEMPT SAMPLE WITH BUTTERFLY.
--- NOTE | 2022-04-02 10:03 | NUR ---
SPOKE WITH KARL CALLING TO INFORM DR. TAPIA OF REQUESTED ABG RESULTS.
[2022-04-02 10:14] LABS: BASOPHILS % (AUTO) 0.1 % (0.0-2.0); EOSINOPHILS % (AUTO) 0.3 % (0.0-4.0); HEMATOCRIT 33.4 % (36-54); LYMPHOCYTES # (AUTO) 0.8 K/uL (1.0-5.5); LYMPHOCYTES % (AUTO) 6.5 % (20.5-51.5); MEAN CORPUSCULAR HEMOGLOBIN 32 pg (27-31); MEAN CORPUSCULAR HGB CONC 33 % (32-36); MEAN CORPUSCULAR VOLUME 96 fL (79.0-98.0); MONOCYTES # (AUTO) 0.1 K/uL (0.0-1.0); MONOCYTES % (AUTO) 1.2 % (1.7-9.3); NEUTROPHILS # (AUTO) 10.7 K/uL (1.8-7.7); NEUTROPHILS % (AUTO) 91.9 % (40.0-70.0); RED BLOOD CELL COUNT(AUTO) 3.47 MIL/uL (4.2-6.2); RED CELL DISTRIBUTION WIDTH 15.5 % (9.0-15.0); WHITE BLOOD COUNT (AUTO) 11.7 K/uL (4.8-10.8)
--- NOTE | 2022-04-02 11:37 | NUR ---
Nutrition F/U RD reviewed pts current EMR including diet hx, physician notes, nursing notes, pertinent labs/meds/procedures, care trends and care activity. Short note d/t high workload Subjective Information RD s/w ENDOSCOPY SPECIALTY TECHNICIAN briefly about pt condition. She attests to pt not doing well and has been transferred back to ICU for respiratory issues. Per EMR review: pt is hypoxic, pt is having recurrent pneumonia d/t Klebsiella oxytoca; pt abd soft, non-distended w/ active bowel sounds; WBC trending up 11.7 H; BG 211 H, Na 146 H. Pt likely not meeting nutritional needs at this time. Current Diet Order/Nutrition Support Mechanical soft, Low CHO 45g, Glucerna ONS TID x 1 day % PO intake Poor avg of 38% x 2 meals Last BM 2/4 x 1 NEW Estimated Energy Expenditure (kcals/day) 4866-2146 kcal (25-30 kcal/kg CBW d/t respiratory failure) Estimated Protein Required (g/day) 91-114 g (1.2-1.5 g/kg CBW d/t critcally ill) Estimated Fluid Required (l/day) 1.8L (1mL/kcal maintenance) Problem/Etiology/Signs/Symptoms * Suboptimal EN support R/T risk for overfeeding AEB current TF prescription exceeds 160% of estimated caloric needs and meets 161% of upper end of estimated protein needs. (resolved) *Suboptimal nutrient intakes R/T decreased appetite, labored breathing AEB documented decreased PO intake (NEW) Expected Outcomes/Goals EN tolerated at goal rate, EN provides >95% estimated nutritional needs, continued skin integrity, nutrition-related labs trending WNL, weight maintenance, BM q 1-3 days Dietitian Recommendations * Continue Mechanical soft, Low CHO 45g, Glucerna ONS TID * Encourage good PO intakes; provide assistance as needed Follow up High risk: f/u in 2-3 days GS, MPH, RD
--- NOTE | 2022-04-02 11:41 | NUR ---
Dietitian Recommendations * Continue Mechanical soft, Low CHO 45g, Glucerna ONS TID * Encourage good PO intakes; provide assistance as needed GS, MPH, RD Please refer to Nutrition F/U for further details. Thanks!
[2022-04-02] MEDS ORDERED: FUROSEMIDE 20 MG/2 ML VIAL IVP ONE (12:45)
--- NOTE | 2022-04-02 12:47 | NUR ---
SPOKE WITH DR SHARIF DIRECTLY RELAYING NEW CONSULT ORDERED BY DR. ALVAREZ FOR REPARATORY MUSCLE WEAKNESS.
[2022-04-02 13:23] LABS: PHOSPHORUS 4.6 mg/dL (2.7-4.5)
[2022-04-02 13:52] LABS: ALBUMIN 2.2 g/dL (3.4-4.8); CALCIUM 8.2 mg/dL (8.4-11.0); CREATININE 0.39 mg/dL (0.55-1.30); TOTAL BILIRUBIN 0.8 mg/dL (0.0-1.0)
[2022-04-02 14:36] LABS: PLATELET COUNT (AUTO) 124 K/uL (130-430)
--- NOTE | 2022-04-02 17:08 | NUR ---
Radiology staff arrived to transport pt to CT Scan for routine CT w/out contrast. Pt's O2 sat has decreased over the last two hours. Current saturation 86%. Consulted with RT Fabi and charge nurse DERRELL Lobo, and decided to reattempt CT when pt is more stable.
--- NOTE | 2022-04-02 20:21 | NUR ---
RT NOTES. PLACED PT ON BIPAP. 12/01 BACK UP OF 16 80%. NO RESP. DISTRESS NOTED. PT TOLERATING WELL. WILL CONTINUE TO MONITOR. SPO2 HAS IMPROVED SIGNIFICANTLY.
[2022-04-02] MEDS: ATORVASTATIN 20 MG TABLET PO SCH (20:43)
--- NOTE | 2022-04-02 21:52 | NUR ---
RT NOTES. PT REQUESTED TO BE TAKEN OFF BIPAP. PLACED BACK ON HIGH FLOW AT 40L 100% DUE TO DESATURATION. PT IS NOW SATTING 92-94%. NO RESP. DISTRESS NOTED. WILL CONTINUE TO MONITOR.
[2022-04-03] VITALS (24 sets, daily range): BP systolic 109–132
[2022-04-03] MEDS: IPRATROPIUM BROM 0.5 MG/2.5 ML VIAL.NEB (ATROVENT) INH SCH ×5 (03:17→20:09)
[2022-04-03] MEDS: ALBUTEROL SULFATE 0.083% 2.5 MG/3 ML VIAL.NEB INH SCH ×5 (03:17→20:09)
--- NOTE | 2022-04-03 04:49 | NUR ---
End of Shift Note: GCS 15, AOx3, pt follows commands and answers appropriately to the questions asked. Pt tolerated bipap 100%, 40L only for an hour, had to transition back to HFNC fio2 100% which was eventually brought down to 80% near the end of shift satting 90-92% SpO2. CT head still pending to be performed sometime during daytime today. Pt only slept about 30min for the entire noc shift and might benefit from a sleeping-aid med to assist with his breathing on bipap as well at night. Will pass on the report to the day shift.
[2022-04-03] MEDS: METHYLPREDNISOLONE SOD SUCC 40 MG/ML VIAL IVP SCH ×2 (05:35→20:49)
--- NOTE | 2022-04-03 07:06 | NUR ---
No acute overnight events or issues. Will continue to monitor. 0715: Reports given to the day shift for continuity of care.
[2022-04-03] MEDS: BUDESONIDE 0.5 MG/2 ML AMPUL.NEB INH SCH ×2 (07:09→20:09)
[2022-04-03 07:10] LABS: ALBUMIN 2.3 g/dL (3.4-4.8); CALCIUM 8.6 mg/dL (8.4-11.0); CREATININE 0.48 mg/dL (0.55-1.30); PHOSPHORUS 3.9 mg/dL (2.7-4.5); TOTAL BILIRUBIN 1.1 mg/dL (0.0-1.0)
[2022-04-03 07:54] LABS: HEMATOCRIT 34.6 % (36-54); HEMOGLOBIN 11.7 g/dL (14.0-18.0); MEAN CORPUSCULAR HEMOGLOBIN 33 pg (27-31); MEAN CORPUSCULAR HGB CONC 34 % (32-36); MEAN CORPUSCULAR VOLUME 96 fL (79.0-98.0); PLATELET COUNT (AUTO) 210 K/uL (130-430); RED BLOOD CELL COUNT(AUTO) 3.61 MIL/uL (4.2-6.2); RED CELL DISTRIBUTION WIDTH 15.4 % (9.0-15.0)
[2022-04-03 08:03] LABS: WHITE BLOOD COUNT (AUTO) 15.6 K/uL (4.8-10.8)
--- NOTE | 2022-04-03 08:31 | NUR ---
RT NOTES Called to bedside per low sat, mid 80s despite FIO2 @ 100%. Switched to 100% NRM, sat started improving. Currently 90-91%
--- NOTE | 2022-04-03 08:35 | NUR ---
RT NOTES Sat went as low as 79%, attempted to place pt on bipap, but pt did not comply. Pulled mask off, Rn witnessed it. Placed back on 100% NRM, pt was re-educated on deep-breathing, although afebrile, pt appears flushed, cooling measures provided by RN. Sat started to improve. @0872 sat 93%.
[2022-04-03] MEDS: INSULIN GLARGINE 100 UNITS/ML, 10 ML VIAL SQ SCH (09:00)
[2022-04-03] MEDS: ASPIRIN 81 MG TAB.CHEW PO SCH (09:23)
[2022-04-03] MEDS: FUROSEMIDE 20 MG/2 ML VIAL IVP SCH (09:23)
[2022-04-03] MEDS: PANTOPRAZOLE SODIUM 40 MG/VIAL (PROTONIX) IVP SCH (09:23)
[2022-04-03] MEDS: TAMSULOSIN HCL 0.4 MG CAP PO SCH ×2 (09:24→20:49)
[2022-04-03] MEDS: MULTIVITS,CA,MINERALS/IRON/FA 1 TABLET PO SCH (09:24)
[2022-04-03] MEDS: ASCORBIC ACID 500 MG TABLET PO SCH ×2 (09:24→20:50)
[2022-04-03] MEDS: CHOLECALCIFEROL (VITAMIN D3) 2,000 UNIT TABLET PO SCH ×2 (09:24→20:53)
[2022-04-03] MEDS: ENOXAPARIN SODIUM 40 MG/0.4 ML SYRINGE SUBCUT SCH (09:25)
--- NOTE | 2022-04-03 10:50 | NUR ---
RT NOTES Pt sat 99% about to undergo EEG, for comfort,switched pt back to HFNC 40L 100%, will be titrated. at bedside
[2022-04-03] MEDS: INSULIN REGULAR, HUMAN 100 UNITS/ML, 3 ML VIAL (humuLIN R) SUBCUT PRN ×3 (12:03→21:05)
[2022-04-03] MEDS ORDERED: METHYLPREDNISOLONE SOD SUCC 40 MG/ML VIAL IVP SCH (14:00)
[2022-04-03 14:58] LABS: ATYPICAL LYMPHOCYTES % 0 % (0-0); BAND % (MANUAL) 2 % (0-6); BASOPHILS % (MANUAL) 0 % (0-2); EOSINOPHILS % (MANUAL) 0 % (0-7); LYMPHOCYTES % (MANUAL) 19 % (20-46); MONOCYTES % (MANUAL) 5 % (0-11)
[2022-04-03] MEDS ORDERED: LOPERAMIDE HCL 2 MG CAPSULE PO ONE (18:15)
[2022-04-03] MEDS: MEGESTROL ACETATE 400 MG/10 ML UDC PO SCH (20:48)
[2022-04-03] MEDS: LACTOBACILLUS RHAMNOSUS GG 1 CAP CAPSULE PO SCH (20:49)
[2022-04-03] MEDS: ATORVASTATIN 20 MG TABLET PO SCH (20:50)
[2022-04-04] VITALS (25 sets, daily range): BP systolic 91–135
[2022-04-04] MEDS: ALBUTEROL SULFATE 0.083% 2.5 MG/3 ML VIAL.NEB INH SCH ×7 (02:02→23:18)
[2022-04-04] MEDS: IPRATROPIUM BROM 0.5 MG/2.5 ML VIAL.NEB (ATROVENT) INH SCH ×7 (02:03→23:18)
--- NOTE | 2022-04-04 02:50 | NUR ---
0245 PATIENT IS VOIDING AND DESATURATION QUICKLY DOWN TO 70% TAKE TIME TO COME BACK UP BREATHING ABDOMINALLY VERY SHALLOW ON THE 48-52 PUT ON NRB WITH HFNC AT 100% 40l. CALLED RT GILMER TO PUT ON BIPAP. [address] JACOBSEN FOR ORDERS PATIENT IS KIND OF VERY ANXIOUS AND AGITATED DONT WAN USED BIPAP BUT ABLE TO CONVINCE HIM. SEE CPOE FOR HIPNOTICS ORDERED. CONT TO MONITOR.
[2022-04-04] MEDS: METHYLPREDNISOLONE SOD SUCC 40 MG/ML VIAL IVP SCH ×4 (02:56→20:44)
[2022-04-04] MEDS ORDERED: LORazepam 2 MG/ML VIAL IVP ONE (03:00)
--- NOTE | 2022-04-04 03:15 | NUR ---
HIGH ALERT NOTE: Called Dr. JACOBSEN back at O302 FOR ORDERS SEE CPOE identified within the medical roster to verify physician authenticity.
[2022-04-04] MEDS: INSULIN REGULAR, HUMAN 100 UNITS/ML, 3 ML VIAL (humuLIN R) SUBCUT PRN ×4 (06:33→21:04)
[2022-04-04 06:34] LABS: BASOPHILS % (AUTO) 0.1 % (0.0-2.0); HEMATOCRIT 31.8 % (36-54); LYMPHOCYTES # (AUTO) 0.4 K/uL (1.0-5.5); LYMPHOCYTES % (AUTO) 3.1 % (20.5-51.5); MEAN CORPUSCULAR HEMOGLOBIN 32 pg (27-31); MEAN CORPUSCULAR HGB CONC 35 % (32-36); MEAN CORPUSCULAR VOLUME 93 fL (79.0-98.0); MONOCYTES # (AUTO) 0.3 K/uL (0.0-1.0); NEUTROPHILS # (AUTO) 13.6 K/uL (1.8-7.7); NEUTROPHILS % (AUTO) 94.8 % (40.0-70.0); PLATELET COUNT (AUTO) 176 K/uL (130-430); RED BLOOD CELL COUNT(AUTO) 3.42 MIL/uL (4.2-6.2); RED CELL DISTRIBUTION WIDTH 15.9 % (9.0-15.0); WHITE BLOOD COUNT (AUTO) 14.4 K/uL (4.8-10.8)
[2022-04-04 07:00] LABS: ALBUMIN 2.2 g/dL (3.4-4.8); CALCIUM 8.2 mg/dL (8.4-11.0); CREATININE 0.62 mg/dL (0.55-1.30); PHOSPHORUS 3.7 mg/dL (2.7-4.5); TOTAL BILIRUBIN 0.8 mg/dL (0.0-1.0)
[2022-04-04] MEDS: BUDESONIDE 0.5 MG/2 ML AMPUL.NEB INH SCH ×2 (07:25→20:08)
--- NOTE | 2022-04-04 07:41 | NUR ---
rt notes 0735 pt taken off bipap and placed on hi flow 35l 90% fio2. sat 96% hr 96 pt tolerating, will cont to monitor. Addendum: 04/04/22 at 0748 by Beverly Greenberg RT Amended: Links added.
--- NOTE | 2022-04-04 08:01 | NUR ---
Opening Notes: Patient is a 66 year old male that was admitted to [facility] on 03/27 for a DX: ARF. CC: SOB from halfway [facility]o Carter went into respiratory distress became tachypneic, starting d-sating into the 70's. He was placed on a NRB and arrived to E.D. and was intubated sent to ICU. 03/30: Patient was extubated. PMHX: Bronchitis, DM, HTN, KATHY, ATN, hyperlipidemia, cornary artery calcifications, recent PNA being treated at halfway. KETURAH PICC- intact, patent, dressing CDI. Alert and oriented x4 able to verbalize all needs. Sinus Tachy on monitor HR 104bmp. Was placed on BIPAP at 0300- due to dsaturating into the 70's and was not able to recover on HF. He was taken off BIPAP at 0735. HF 35L at 90%. No BM per noc RN- yesterday multiple BM'S noted and immodum and megace were given. Mechanical Soft diet able to feed self, at bedside with patient. Accuchecks Q6h- on shannan lantus. Uses urinal at bedside. Skin- Medial buttocks erythmea covered with optifoam. WBC this am 14.4. CT head pending -will inform MD of dsaturation last night and not being able to tolerate laying flat for that amount of time yet. Will update PRN throughout shift.
[2022-04-04] MEDS: ASCORBIC ACID 500 MG TABLET PO SCH ×2 (08:38→20:41)
[2022-04-04] MEDS: MODAFINIL 100 MG TABLET (PROVIGIL) PO SCH (08:38)
[2022-04-04] MEDS: ASPIRIN 81 MG TAB.CHEW PO SCH (08:38)
[2022-04-04] MEDS: MEGESTROL ACETATE 400 MG/10 ML UDC PO SCH (08:38)
[2022-04-04] MEDS: MULTIVITS,CA,MINERALS/IRON/FA 1 TABLET PO SCH (08:38)
[2022-04-04] MEDS: TAMSULOSIN HCL 0.4 MG CAP PO SCH ×2 (08:38→20:41)
[2022-04-04] MEDS: LACTOBACILLUS RHAMNOSUS GG 1 CAP CAPSULE PO SCH ×2 (08:38→20:41)
[2022-04-04] MEDS: CHOLECALCIFEROL (VITAMIN D3) 2,000 UNIT TABLET PO SCH ×2 (08:38→20:41)
[2022-04-04] MEDS: ENOXAPARIN SODIUM 40 MG/0.4 ML SYRINGE SUBCUT SCH (08:39)
[2022-04-04] MEDS: FUROSEMIDE 20 MG/2 ML VIAL IVP SCH ×2 (08:39→18:32)
[2022-04-04] MEDS: PANTOPRAZOLE SODIUM 40 MG/VIAL (PROTONIX) IVP SCH (08:40)
[2022-04-04] MEDS ORDERED: INSULIN GLARGINE 100 UNITS/ML, 10 ML VIAL SQ SCH ×2 (09:00)
[2022-04-04] MEDS: SULFAMETHOXAZOLE/TRIMETHOPR DS 1 TABLET PO SCH (09:12)
--- NOTE | 2022-04-04 17:40 | NUR ---
MD rounds: Spoke with this am, she is requesting a second ops analyst opinion. Dr. Juarez- rounded, and aware- he will consult Dr. Pelayo.- to see the patient in the AM.
--- NOTE | 2022-04-04 17:58 | NUR ---
RT NOTES 1140 PT PLACED TO 35L 95% 1200 PT PLACED TO 100% FIO2 DUE TO DESATURATION.RN AWARE. Addendum: 04/04/22 at 1800 by Beverly Greenberg RT Amended: Links added.
[2022-04-04] MEDS ORDERED: FUROSEMIDE 20 MG/2 ML VIAL ONE (18:33)
[2022-04-04] MEDS ORDERED: FUROSEMIDE 20 MG/2 ML VIAL IVP ONE (18:45)
[2022-04-04] MEDS: ATORVASTATIN 20 MG TABLET PO SCH (20:41)
--- NOTE | 2022-04-04 21:15 | NUR ---
2030 S/B DR JACOBSEN SPOKE TO DR ALVAREZ AND THE WITH ORDERS MADE FOR CONSULT TO CASE MANAGEMENT FOR T/F TO HIGHER LEVEL OF CARE.
[2022-04-05] VITALS (22 sets, daily range): BP systolic 94–136
[2022-04-05] MEDS: METHYLPREDNISOLONE SOD SUCC 40 MG/ML VIAL IVP SCH ×4 (02:44→20:49)
[2022-04-05] MEDS: ALBUTEROL SULFATE 0.083% 2.5 MG/3 ML VIAL.NEB INH SCH ×6 (03:50→23:13)
[2022-04-05] MEDS: IPRATROPIUM BROM 0.5 MG/2.5 ML VIAL.NEB (ATROVENT) INH SCH ×6 (03:52→23:12)
[2022-04-05 06:11] LABS: HEMATOCRIT 31.4 % (36-54); HEMOGLOBIN 10.7 g/dL (14.0-18.0); LYMPHOCYTES # (AUTO) 0.7 K/uL (1.0-5.5); LYMPHOCYTES % (AUTO) 5.4 % (20.5-51.5); MEAN CORPUSCULAR HEMOGLOBIN 32 pg (27-31); MEAN CORPUSCULAR HGB CONC 34 % (32-36); MEAN CORPUSCULAR VOLUME 94 fL (79.0-98.0); MONOCYTES # (AUTO) 0.3 K/uL (0.0-1.0); MONOCYTES % (AUTO) 2.1 % (1.7-9.3); NEUTROPHILS # (AUTO) 11.7 K/uL (1.8-7.7); NEUTROPHILS % (AUTO) 92.5 % (40.0-70.0); PLATELET COUNT (AUTO) 209 K/uL (130-430); RED BLOOD CELL COUNT(AUTO) 3.33 MIL/uL (4.2-6.2); RED CELL DISTRIBUTION WIDTH 15.7 % (9.0-15.0); WHITE BLOOD COUNT (AUTO) 12.6 K/uL (4.8-10.8)
[2022-04-05] MEDS: INSULIN REGULAR, HUMAN 100 UNITS/ML, 3 ML VIAL (humuLIN R) SUBCUT PRN ×4 (06:23→21:03)
[2022-04-05 06:26] LABS: CALCIUM 8.3 mg/dL (8.4-11.0); CREATININE 0.57 mg/dL (0.55-1.30)
--- NOTE | 2022-04-05 07:05 | NUR ---
Received report from DERRELL Lincoln. Patient is a 66 YO M adm 03/27 for a DX: ARF. CC: SOB from halfway [facility] went into respiratory distress became tachypneic, starting d-sating into the 70's. PMHX: Bronchitis, DM, HTN, KATHY, ATN, hyperlipidemia, coronary artery calcifications, recent PNA being treated at halfway. KETURAH PICC- intact, patent, dressing CDI. Alert and oriented x4 able to verbalize all needs. Sinus Tach on monitor HR 100bpm. HF 35% 35L. No BM per noc RN. Mechanical Soft diet able to feed self, at bedside with patient. Accu checks Q6h- on shannan lantus. Uses urinal at bedside. Skin- Medial buttocks erythema covered with optifoam. WBC this am 14.4. CT head pending Pt unable to tolerate lying flat. Will update PRN throughout shift.
--- NOTE | 2022-04-05 07:08 | NUR ---
ALL CARES DONE DESATS ONLY ONE TIME ON THE LOW 80'S VOIDING WELL AND COOPERATIVE. V/S STABLE. REPORT GIVEN TO KESHAWN DOVE
[2022-04-05] MEDS: BUDESONIDE 0.5 MG/2 ML AMPUL.NEB INH SCH ×2 (07:19→19:25)
--- NOTE | 2022-04-05 07:25 | NUR ---
SPOKE WITH ROBIN AT [facility] REGARDING NEW CONSULT FOR OUR PATIENT FOR SECOND OPINION.
--- NOTE | 2022-04-05 07:59 | NUR ---
Pt's at bedside with patient.
[2022-04-05] MEDS: FUROSEMIDE 20 MG/2 ML VIAL IVP SCH ×2 (08:55→17:47)
[2022-04-05] MEDS: PANTOPRAZOLE SODIUM 40 MG/VIAL (PROTONIX) IVP SCH (08:56)
[2022-04-05] MEDS: MODAFINIL 100 MG TABLET (PROVIGIL) PO SCH (08:56)
[2022-04-05] MEDS: CHOLECALCIFEROL (VITAMIN D3) 2,000 UNIT TABLET PO SCH ×2 (08:57→20:50)
[2022-04-05] MEDS: ASPIRIN 81 MG TAB.CHEW PO SCH (08:58)
[2022-04-05] MEDS: MEGESTROL ACETATE 400 MG/10 ML UDC PO SCH (08:58)
[2022-04-05] MEDS: LACTOBACILLUS RHAMNOSUS GG 1 CAP CAPSULE PO SCH ×2 (08:58→20:50)
[2022-04-05] MEDS: TAMSULOSIN HCL 0.4 MG CAP PO SCH ×2 (08:59→20:49)
[2022-04-05] MEDS: MULTIVITS,CA,MINERALS/IRON/FA 1 TABLET PO SCH (08:59)
[2022-04-05] MEDS: ASCORBIC ACID 500 MG TABLET PO SCH ×2 (08:59→20:49)
[2022-04-05] MEDS: ENOXAPARIN SODIUM 40 MG/0.4 ML SYRINGE SUBCUT SCH (09:00)
[2022-04-05] MEDS: INSULIN GLARGINE 100 UNITS/ML, 10 ML VIAL SQ SCH (09:05)
[2022-04-05] MEDS: SULFAMETHOXAZOLE/TRIMETHOPR DS 1 TABLET PO SCH (09:05)
--- NOTE | 2022-04-05 11:13 | NUR ---
Nutrition F/U RD reviewed pts current EMR including diet hx, physician notes, nursing notes, pertinent labs/meds/procedures, care trends and care activity. Short note d/t high workload Subjective Information RD s/w DIE MAINTENANCE TECHNICIAN about pt condition. Pt struggles w/ oxygen saturation. RN said MD Paredes ordered CT for his head d/t unsteady gait. Pt hasnt been able to go to that procedure d/t desaturation issues. WBC has been going dropping. RN reported BM last night. RN mentioned PO intake 50%-75%. RN states on mechanical soft. Pt currently on high-flow 35L @ 100%. Pt likely not meeting nutritional needs at this time. Current Diet Order/Nutrition Support Mechanical soft, Low CHO 45g, Glucerna ONS TID x 4 day % PO intake Fair avg of 59% x 8 meals (improving) Last BM 2/6 x 1 Estimated Energy Expenditure (kcals/day) 9324-0113 kcal (25-30 kcal/kg CBW d/t respiratory failure) Estimated Protein Required (g/day) 91-114 g (1.2-1.5 g/kg CBW d/t critically ill) Estimated Fluid Required (l/day) 1.8-2.2 L (1mL/kcal maintenance) Problem/Etiology/Signs/Symptoms * Suboptimal EN support R/T risk for overfeeding AEB current TF prescription exceeds 160% of estimated caloric needs and meets 161% of upper end of estimated protein needs. (resolved) *Suboptimal nutrient intakes R/T decreased appetite, labored breathing AEB documented decreased PO intake (ongoing- improving) Expected Outcomes/Goals PO intake provides >85% estimated nutrient needs, nutrition-related labs trending WNL, continued skin integrity, BM q1-3 days Dietitian Recommendations * Continue Mechanical soft, Low CHO 45g, Glucerna ONS TID * Encourage good PO intakes; provide assistance as needed * If intubated again, please contact RD to re-assess needs Follow up Moderate risk: f/u in 3-5 days GS, MPH, RD
--- NOTE | 2022-04-05 11:15 | NUR ---
Dietitian Recommendations * Continue Mechanical soft, Low CHO 45g, Glucerna ONS TID * Encourage good PO intakes; provide assistance as needed * If intubated again, please contact RD to re-assess needs YUNG, MPH, RD Please refer to Nutrition F/U for further details. Thanks!
[2022-04-05] MEDS ORDERED: SACUBITRIL/VALSARTAN 24 MG-26 MG 1 TABLET PO ONE (18:00)
--- NOTE | 2022-04-05 18:26 | NUR ---
1621 TITRATED FIO2 TO 95%. KS GREATER THAN 90% PER DR ALVAREZ. SAT 95%. Addendum: 04/05/22 at 1827 by Beverly Greenberg RT Amended: Links added.
--- NOTE | 2022-04-05 20:00 | NUR ---
RN NOTES AWAKE AND ALERT, O2 ON AT 95% VIA HI FLOW SINUS RHYTHM ON THE MONITOR, DENIES ANY PAIN.
[2022-04-05] MEDS: ATORVASTATIN 20 MG TABLET PO SCH (20:50)
--- NOTE | 2022-04-05 22:00 | NUR ---
RN NOTES AT BEDSIDE, PM CARTE DONE. REPOSITIONED FOR COMFORT.
[2022-04-06] VITALS (25 sets, daily range): BP systolic 95–126
--- NOTE | 2022-04-06 01:45 | NUR ---
RN NOTES O2 SAT. 80%. O2 SWITCH BACK TO BIPAP 12/5 100% O2, RATE - 16
[2022-04-06] MEDS: ALBUTEROL SULFATE 0.083% 2.5 MG/3 ML VIAL.NEB INH SCH ×5 (03:20→20:03)
[2022-04-06] MEDS: IPRATROPIUM BROM 0.5 MG/2.5 ML VIAL.NEB (ATROVENT) INH SCH ×5 (03:20→20:03)
--- NOTE | 2022-04-06 05:30 | NUR ---
RN NOTES ON 100% BIPAP, SPO2 GOOD. PT MADE COMFORTABLE.
[2022-04-06 06:12] LABS: PHOSPHORUS 3.2 mg/dL (2.7-4.5)
[2022-04-06] MEDS: INSULIN REGULAR, HUMAN 100 UNITS/ML, 3 ML VIAL (humuLIN R) SUBCUT PRN ×3 (06:31→22:00)
[2022-04-06] MEDS: METHYLPREDNISOLONE SOD SUCC 40 MG/ML VIAL IVP SCH ×4 (06:37→20:43)
[2022-04-06] MEDS: BUDESONIDE 0.5 MG/2 ML AMPUL.NEB INH SCH ×2 (07:18→20:03)
--- NOTE | 2022-04-06 07:30 | NUR ---
Patient is a 66 year old male that was admitted to [facility] on 03/27 for a DX: ARF. CC: [facility]B from [facility] went into respiratory distress became tachypneic, started d-sating into the 70's. He was placed on a NRB and arrived to E.D. and was intubated sent to ICU. 03/30: Patient was extubated. PMHX: Bronchitis, DM, HTN, KATHY, ATN, hyperlipidemia, cornary artery calcifications, recent PNA being treated at prison. KETURAH PICC- intact, patent, dressing CDI. Alert and oriented x4 able to verbalize all needs. Sinus Tachy on monitor. Was placed on BIPAP at NIGHTTIME. HF 35L at 100%. MULTIPLE BM per noc RN- SOFT AND FORMED. Mechanical Soft diet able to feed self. Accuchecks Q6h- on shannan lantus. Uses urinal at bedside. Skin- Medial buttocks erythema covered with optifoam. CT head pending.
[2022-04-06] MEDS: PANTOPRAZOLE SODIUM 40 MG/VIAL (PROTONIX) IVP SCH (08:09)
[2022-04-06] MEDS: ENOXAPARIN SODIUM 40 MG/0.4 ML SYRINGE SUBCUT SCH (08:10)
[2022-04-06] MEDS: FUROSEMIDE 20 MG/2 ML VIAL IVP SCH ×2 (08:10→17:18)
[2022-04-06] MEDS: MULTIVITS,CA,MINERALS/IRON/FA 1 TABLET PO SCH (08:11)
[2022-04-06] MEDS: TAMSULOSIN HCL 0.4 MG CAP PO SCH ×2 (08:11→20:44)
[2022-04-06] MEDS: CHOLECALCIFEROL (VITAMIN D3) 2,000 UNIT TABLET PO SCH ×2 (08:11→20:45)
[2022-04-06] MEDS: ASPIRIN 81 MG TAB.CHEW PO SCH (08:11)
[2022-04-06] MEDS: ASCORBIC ACID 500 MG TABLET PO SCH ×2 (08:11→20:48)
[2022-04-06] MEDS: LACTOBACILLUS RHAMNOSUS GG 1 CAP CAPSULE PO SCH ×2 (08:11→20:43)
[2022-04-06] MEDS: MEGESTROL ACETATE 400 MG/10 ML UDC PO SCH (08:11)
[2022-04-06] MEDS: MODAFINIL 100 MG TABLET (PROVIGIL) PO SCH (08:11)
[2022-04-06] MEDS: SULFAMETHOXAZOLE/TRIMETHOPR DS 1 TABLET PO SCH (08:14)
[2022-04-06] MEDS: SACUBITRIL/VALSARTAN 24 MG-26 MG 1 TABLET PO SCH ×2 (08:14→20:44)
[2022-04-06] MEDS: INSULIN GLARGINE 100 UNITS/ML, 10 ML VIAL SQ SCH (08:18)
[2022-04-06 11:13] LABS: HEMATOCRIT 34.2 % (36-54); HEMOGLOBIN 11.5 g/dL (14.0-18.0); LYMPHOCYTES # (AUTO) 0.5 K/uL (1.0-5.5); LYMPHOCYTES % (AUTO) 2.8 % (20.5-51.5); MEAN CORPUSCULAR HEMOGLOBIN 32 pg (27-31); MEAN CORPUSCULAR HGB CONC 34 % (32-36); MEAN CORPUSCULAR VOLUME 95 fL (79.0-98.0); MONOCYTES # (AUTO) 0.5 K/uL (0.0-1.0); MONOCYTES % (AUTO) 2.5 % (1.7-9.3); NEUTROPHILS # (AUTO) 18.3 K/uL (1.8-7.7); NEUTROPHILS % (AUTO) 94.7 % (40.0-70.0); PLATELET COUNT (AUTO) 269 K/uL (130-430); WHITE BLOOD COUNT (AUTO) 19.3 K/uL (4.8-10.8)
[2022-04-06 11:18] LABS: CALCIUM 8.2 mg/dL (8.4-11.0); CREATININE 0.68 mg/dL (0.55-1.30)
[2022-04-06] MEDS: ATORVASTATIN 20 MG TABLET PO SCH (20:46)
--- NOTE | 2022-04-06 23:19 | NUR ---
SPO2 88%. Pt appears anxious, face mask off, and trying to get out of bed. Pt reassured, face mask put back in place and SPO2 increases to 94%. Called pt's and she states that she will come stay with pt.
--- NOTE | 2022-04-06 23:45 | NUR ---
Pt anxious, tachypneic, keeps taking face mask off. SPO2 drops to 85%. RT at bedside, BiPAP now in place at 10/5, rate 12, FiO2 100%. SPO2 increases to 96%.
--- NOTE | 2022-04-06 23:50 | NUR ---
Pt's at bedside. Pt incontinent of urine. Pt cleaned, linens and gown changed.
[2022-04-07] VITALS (23 sets, daily range): BP systolic 70–135
[2022-04-07] MEDS ORDERED: ACETAMINOPHEN 325 MG TABLET ONE (00:49)
[2022-04-07] MEDS: ACETAMINOPHEN 325 MG TABLET PO PRN (01:04)
--- NOTE | 2022-04-07 01:50 | NUR ---
Spoke with Dr. Stanford to inform pt continues to be anxious with tachypnea at 50 on BiPAP. New order to start low dose Precedex drip
[2022-04-07] MEDS ORDERED: DEXMEDETOMIDINE HCL 200 MCG/2 ML VIAL IV ONE (01:52)
[2022-04-07] MEDS: METHYLPREDNISOLONE SOD SUCC 40 MG/ML VIAL IVP SCH ×4 (03:29→20:56)
[2022-04-07 06:11] LABS: HEMATOCRIT 36.6 % (36-54); HEMOGLOBIN 12.1 g/dL (14.0-18.0); MEAN CORPUSCULAR HEMOGLOBIN 31 pg (27-31); MEAN CORPUSCULAR HGB CONC 33 % (32-36); MEAN CORPUSCULAR VOLUME 95 fL (79.0-98.0); PLATELET COUNT (AUTO) 295 K/uL (130-430); RED BLOOD CELL COUNT(AUTO) 3.85 MIL/uL (4.2-6.2); RED CELL DISTRIBUTION WIDTH 16.8 % (9.0-15.0); WHITE BLOOD COUNT (AUTO) 27.4 K/uL (4.8-10.8)
[2022-04-07 06:18] LABS: CALCIUM 8.5 mg/dL (8.4-11.0); CREATININE 0.57 mg/dL (0.55-1.30)
[2022-04-07] MEDS: INSULIN REGULAR, HUMAN 100 UNITS/ML, 3 ML VIAL (humuLIN R) SUBCUT PRN ×2 (06:50→21:21)
--- NOTE | 2022-04-07 07:05 | NUR ---
Pt report given to DERRELL Buchanan. Pt alert, responsive, remains on BiPAP 10/, rate 12, 100%. Precedex infusing at 0.4 mcg/kg/hr to KETURAH PICC.
[2022-04-07] MEDS: ALBUTEROL SULFATE 0.083% 2.5 MG/3 ML VIAL.NEB INH SCH ×5 (07:14→23:22)
[2022-04-07] MEDS: IPRATROPIUM BROM 0.5 MG/2.5 ML VIAL.NEB (ATROVENT) INH SCH ×5 (07:15→23:23)
[2022-04-07] MEDS: BUDESONIDE 0.5 MG/2 ML AMPUL.NEB INH SCH ×2 (07:15→20:19)
--- NOTE | 2022-04-07 07:30 | NUR ---
Patient is a 66 year old male that was admitted to [facility] on 03/27 for a DX: ARF. CC: SOB from custodial Romeo Carter went into respiratory distress became tachypneic, started d-sating into the 70's. He was placed on a NRB and arrived to E.D. and was intubated sent to ICU. 03/30: Patient was extubated. PMHX: Bronchitis, DM, HTN, KATHY, ATN, hyperlipidemia, cornary artery calcifications, recent PNA being treated at custodial. KETURAH PICC- intact, patent, dressing CDI. Alert and oriented x4 able to verbalize all needs, however, language barrier as patient is Primarily French Speaking. Sinus Tachy on monitor. Was placed on BIPAP as patient was deteriorating and requiring more oxygen. Mechanical Soft diet able to feed self. Accuchecks [id number] urinal at bedside. Skin- Medial buttocks erythema covered with optifoam. CT head pending.
--- NOTE | 2022-04-07 08:00 | NUR ---
RT NOTES Changed mode to AVAPS RR 16 Vt 550, RR appears to improve.
[2022-04-07] MEDS: ASPIRIN 81 MG TAB.CHEW PO SCH (08:15)
[2022-04-07] MEDS: ASCORBIC ACID 500 MG TABLET PO SCH ×2 (08:16→20:59)
[2022-04-07] MEDS: MEGESTROL ACETATE 400 MG/10 ML UDC PO SCH (08:16)
[2022-04-07] MEDS: LACTOBACILLUS RHAMNOSUS GG 1 CAP CAPSULE PO SCH ×2 (08:16→20:58)
[2022-04-07] MEDS: MODAFINIL 100 MG TABLET (PROVIGIL) PO SCH (08:16)
[2022-04-07] MEDS: SACUBITRIL/VALSARTAN 24 MG-26 MG 1 TABLET PO SCH ×2 (08:16→20:58)
[2022-04-07] MEDS: TAMSULOSIN HCL 0.4 MG CAP PO SCH ×2 (08:16→20:59)
[2022-04-07] MEDS: SULFAMETHOXAZOLE/TRIMETHOPR DS 1 TABLET PO SCH (08:16)
[2022-04-07] MEDS: MULTIVITS,CA,MINERALS/IRON/FA 1 TABLET PO SCH (08:16)
[2022-04-07] MEDS: INSULIN GLARGINE 100 UNITS/ML, 10 ML VIAL SQ SCH (08:17)
[2022-04-07] MEDS: CHOLECALCIFEROL (VITAMIN D3) 2,000 UNIT TABLET PO SCH ×2 (08:17→20:59)
--- NOTE | 2022-04-07 08:50 | NUR ---
RT NOTES For breakfast, placed pt on HFNC 40L 100% with NRM on standby. Dtr at bedside translating education being provided to pt about deep- breathing.
--- NOTE | 2022-04-07 09:00 | NUR ---
RT NOTES Called to bedside due to low sat despite 100% HF w/ 100% NRM on. Placed pt on bipap with skin barrier on nose bridge.
[2022-04-07] MEDS: FUROSEMIDE 20 MG/2 ML VIAL IVP SCH ×2 (09:30→17:03)
[2022-04-07] MEDS: ENOXAPARIN SODIUM 40 MG/0.4 ML SYRINGE SUBCUT SCH (09:35)
[2022-04-07] MEDS: PANTOPRAZOLE SODIUM 40 MG/VIAL (PROTONIX) IVP SCH (09:35)
--- NOTE | 2022-04-07 09:50 | NUR ---
RT NOTES FIO2 to 0.80, will monitor pt
[2022-04-07 09:56] LABS: BAND % (MANUAL) 6 % (0-6); BASOPHILS % (MANUAL) 0 % (0-2); EOSINOPHILS % (MANUAL) 4 % (0-7); LYMPHOCYTES % (MANUAL) 4 % (20-46); MONOCYTES % (MANUAL) 0 % (0-11)
[2022-04-07] MEDS ORDERED: *PPN PER PHARMACY XX PRN (11:30)
[2022-04-07] MEDS ORDERED: DEXTROSE 50% JECT 50 ML DISP.SYRIN IVP PRN (11:30)
--- NOTE | 2022-04-07 12:06 | NUR ---
Dietitian Recommendations for TPN RD reviewed pts current EMR including diet hx, physician notes, nursing notes, pertinent labs/meds/procedures, care trends and care activity. Short note d/t high workload Subjective Information: RD attended ICU rounds this morning. Primary RN reported that pt is not eating d/t desaturation issues/safety. New plan for TPN/PPN -- ordered this morning 04/07/22 1128. Per EMR review, pt has a PICC line to [facility]. Current Diet Order/Nutrition Support: Mechanical soft, CCHO low carb-45 gm, Glucerna TID x6 days Estimated Energy Expenditure (kcals/day) 7317-7422 kcal (25-30 kcal/kg CBW d/t respiratory failure) Estimated Protein Required (g/day) 91-114 g (1.2-1.5 g/kg CBW d/t critically ill) Estimated Fluid Required (l/day) 1.8-2.2 L (1mL/kcal maintenance) TPN Recommendation: D40%, AA10% at 85 ml/hr (goal rate) via central line Provides: 1795 kcal/day, 102 gm protein/day, 2040 ml total volume/day, and GIR: 4.2 mg CHO/kg/min Meets: 96% of lower end of estimated caloric needs, 89% of upper end of estimated protein needs
--- NOTE | 2022-04-07 12:15 | NUR ---
SPOKE WITH DR. ALVAREZ AT BEDSIDE AND DISCUSSED PATIENT'S BASELINE O2 SATURATION, AND MD IS OKAY WITH 02 SATURATION IN THE 80'S WHILE PATIENT EATS. PT IS CHRONICALLY HYPOXIC WITH COMPENSATION. WILL FEED PATIENT AND ALLOW 2 HOURS AFTER EATING AND IF NEEDED REAPPLY THE BIPAP.
--- NOTE | 2022-04-07 13:25 | NUR ---
RT NOTES Pt is currently on HFNC 40L 100%, resting, no distress noted. H.R 88 RR 25 Sat92%
--- NOTE | 2022-04-07 19:30 | NUR ---
RECEIVED AAOX4, FOLLOWS COMMANDS WELL. IN THE ROOM. PATIENT IS ON HI FLOW O2 AT 100%/40 L. PATIENT STILL HAS SOB ON EXERTION.
--- NOTE | 2022-04-07 20:00 | NUR ---
ANALYSIS INTERNSHIP IS SHOWING NST, DENIES CHEST PAIN. PRECEDEX IS STILL INFUSING AT0.2 MCG/KG/HR. ON THE RUE PICC LINE. ABDOMEN IS SOFT AND NON-DISTENDED. VOIDING WELL.
[2022-04-07] MEDS: ATORVASTATIN 20 MG TABLET PO SCH (20:59)
--- NOTE | 2022-04-07 21:05 | NUR ---
RT NOTES. PLACED PT ON BIPAP @2100. PT TOLERATING WELL. WILL CONTINUE TO MONITOR. NO RESP. DISTRESS NOTED.
--- NOTE | 2022-04-07 21:20 | NUR ---
PATIENT IS REFUSING BIPAP AND REQUESTED TO HAVE IT REMOVED. BACK TO HI-FLOW O2. SATURATION IS 93-97%
[2022-04-08] VITALS (24 sets, daily range): BP systolic 87–120
[2022-04-08] MEDS: METHYLPREDNISOLONE SOD SUCC 40 MG/ML VIAL IVP SCH ×4 (03:03→20:57)
[2022-04-08] MEDS: IPRATROPIUM BROM 0.5 MG/2.5 ML VIAL.NEB (ATROVENT) INH SCH ×6 (03:49→22:46)
[2022-04-08] MEDS: ALBUTEROL SULFATE 0.083% 2.5 MG/3 ML VIAL.NEB INH SCH ×6 (03:49→22:45)
[2022-04-08] MEDS: INSULIN REGULAR, HUMAN 100 UNITS/ML, 3 ML VIAL (humuLIN R) SUBCUT PRN ×3 (05:52→21:17)
[2022-04-08 06:37] LABS: HEMATOCRIT 32.1 % (36-54); HEMOGLOBIN 10.9 g/dL (14.0-18.0); MEAN CORPUSCULAR HEMOGLOBIN 32 pg (27-31); MEAN CORPUSCULAR HGB CONC 34 % (32-36); MEAN CORPUSCULAR VOLUME 96 fL (79.0-98.0); PLATELET COUNT (AUTO) 228 K/uL (130-430); RED BLOOD CELL COUNT(AUTO) 3.36 MIL/uL (4.2-6.2); RED CELL DISTRIBUTION WIDTH 16.4 % (9.0-15.0)
[2022-04-08 06:57] LABS: ALBUMIN 2.1 g/dL (3.4-4.8); CALCIUM 8.1 mg/dL (8.4-11.0); CREATININE 0.58 mg/dL (0.55-1.30); PHOSPHORUS 2.9 mg/dL (2.7-4.5); TOTAL BILIRUBIN 0.8 mg/dL (0.0-1.0)
[2022-04-08] MEDS: BUDESONIDE 0.5 MG/2 ML AMPUL.NEB INH SCH ×2 (07:05→19:49)
[2022-04-08] MEDS ORDERED: *TPN PER PHARMACY XX PRN (08:08)
[2022-04-08 08:20] LABS: WHITE BLOOD COUNT (AUTO) 16.3 K/uL (4.8-10.8)
[2022-04-08] MEDS: FUROSEMIDE 20 MG/2 ML VIAL IVP SCH ×2 (08:59→18:17)
[2022-04-08] MEDS: PANTOPRAZOLE SODIUM 40 MG/VIAL (PROTONIX) IVP SCH (08:59)
[2022-04-08] MEDS: SULFAMETHOXAZOLE/TRIMETHOPR DS 1 TABLET PO SCH (09:00)
[2022-04-08] MEDS: ENOXAPARIN SODIUM 40 MG/0.4 ML SYRINGE SUBCUT SCH (09:02)
[2022-04-08] MEDS: TAMSULOSIN HCL 0.4 MG CAP PO SCH ×2 (09:02→20:58)
[2022-04-08] MEDS: ASPIRIN 81 MG TAB.CHEW PO SCH (09:03)
[2022-04-08] MEDS: MODAFINIL 100 MG TABLET (PROVIGIL) PO SCH (09:03)
[2022-04-08] MEDS: MULTIVITS,CA,MINERALS/IRON/FA 1 TABLET PO SCH (09:03)
[2022-04-08] MEDS: MEGESTROL ACETATE 400 MG/10 ML UDC PO SCH (09:04)
[2022-04-08] MEDS: ASCORBIC ACID 500 MG TABLET PO SCH ×2 (09:04→20:59)
[2022-04-08] MEDS: LOPERAMIDE HCL 2 MG CAPSULE PO PRN (09:04)
[2022-04-08] MEDS: LACTOBACILLUS RHAMNOSUS GG 1 CAP CAPSULE PO SCH ×2 (09:05→20:57)
[2022-04-08] MEDS: CHOLECALCIFEROL (VITAMIN D3) 2,000 UNIT TABLET PO SCH ×2 (09:07→20:59)
[2022-04-08] MEDS: SACUBITRIL/VALSARTAN 24 MG-26 MG 1 TABLET PO SCH ×2 (09:17→20:58)
[2022-04-08] MEDS: INSULIN GLARGINE 100 UNITS/ML, 10 ML VIAL SQ SCH (09:20)
--- NOTE | 2022-04-08 09:55 | NUR ---
@ bedside assessing pt, notified him of pt's tachypnea 40-[address], no new orders, continue plan of care. Pt denies any distress or pain.
[2022-04-08 14:32] LABS: BAND % (MANUAL) 2 % (0-6)
[2022-04-08 14:33] LABS: ATYPICAL LYMPHOCYTES % 0 % (0-0); BASOPHILS % (MANUAL) 0 % (0-2); EOSINOPHILS % (MANUAL) 0 % (0-7); LYMPHOCYTES % (MANUAL) 3 % (20-46); MONOCYTES % (MANUAL) 2 % (0-11)
--- NOTE | 2022-04-08 16:38 | NUR ---
Nutrition F/U RD reviewed pts current EMR including diet hx, physician notes, nursing notes, pertinent labs/meds/procedures, care trends and care activity. Short note d/t high workload Subjective Information : RD and environmental engineering intern attended ICU rounds this morning. Primary RN reported that pt is unable to tolerating eating foods at this time d/t respiratory distress/requiring O2 via combination of HFNC and facemask. New orders for TPN initiated yesterday, and plan for TPN to start tonight. Per EMR review, pt's CBW fluctuated between 165# (03/29) to 148# (04/08) -- note 17# wt decrease within 10 days -- unsure of reliability, however, new nutritional needs were calculated based on new documented CBW. Current Diet Order/Nutrition Support: Mechanical Soft, CCHO low carb-45 gm diet, Glucerna TID x7 days & TPN D30%, AA10% at 42 ml/hr, IL20% at 10 ml/hr via central line TPN Provides: 1201 kcal/day, 51 gm protein/day, 1252 ml total volume/day, and GIR: 1.6 mg CHO/kg/min TPN Meets: 72% of lower end of estimated caloric needs, 64% of lower end of estimated protein needs, and 74% of lower end of estimated fluid needs % PO intake: 63% average x2 meal records Last B: x2 04/06 NEW Estimated Energy Expenditure (kcals/day) 5364-4363 (25-30 kcal/kg CBW (67 kg) d/t respiratory failure) NEW Estimated Protein Required (g/day) 80-101 (1.2-1.5 g/kg CBW (67 kg) d/t critically ill) NEW Estimated Fluid Required (l/day) 1.7-2 (1 ml/kcal/day for GERIAT maintenance) Problem/Etiology/Signs/Symptoms * Suboptimal EN support R/T risk for overfeeding AEB current TF prescription exceeds 160% of estimated caloric needs and meets 161% of upper end of estimated protein needs. *Resolved * Suboptimal nutrient intakes R/T decreased appetite, labored breathing AEB documented decreased PO intake. *N/A * Inadequate TPN support R/T metabolic demands AEB estimated nutritional requirements for respiratory failure/critical illness. *New Expected Outcomes/Goals PO intake provides >85% estimated nutrient needs, nutrition-related labs trending WNL, continued skin integrity, BM q1-3 days Dietitian Recommendations * Continue Mechanical soft, CCHO low carb-45 gm, Glucerna TID (ONS yields 660 kcal/day, 30 gm protein/day) * TPN D30%, AA10% at 70 ml/hr (goal rate), IL20% at 10 ml/hr daily via central line Provides: 1673 kcal/day, 84 gm protein/day, 1920 ml total volume/day, and GIR: 2.6 mg CHO/kg/min Meets: 99% of estimated caloric needs/day, 105% of lower end of estimated protein needs/day, and 96% of upper end of estimated fluid needs * Encourage safety/assistance w/ PO diet * If intubated again, please contact RD to re-assess nutritional needs Follow up High Risk: RD to F/U within 2-3 days
--- NOTE | 2022-04-08 16:51 | NUR ---
Problem/Etiology/Signs/Symptoms * Suboptimal EN support R/T risk for overfeeding AEB current TF prescription exceeds 160% of estimated caloric needs and meets 161% of upper end of estimated protein needs. Dietitian Recommendations * Continue Mechanical soft, CCHO low carb-45 gm, Glucerna TID (ONS yields 660 kcal/day, 30 gm protein/day) * TPN D30%, AA10% at 70 ml/hr (goal rate), IL20% at 10 ml/hr daily via central line Provides: 1673 kcal/day, 84 gm protein/day, 1920 ml total volume/day, and GIR: 2.6 mg CHO/kg/min Meets: 99% of estimated caloric needs/day, 105% of lower end of estimated protein needs/day, and 96% of upper end of estimated fluid needs * Encourage safety/assistance w/ PO diet * If intubated again, please contact RD to re-assess nutritional needs LP, MS, RD Please refer to Nutrition F/U for details. Addendum: 04/08/22 at [address] ENTERED IN ERROR. PLEASE DISREGARD.
[2022-04-08] MEDS: ATORVASTATIN 20 MG TABLET PO SCH (20:58)
[2022-04-08] MEDS ORDERED: [UNRECOGNIZED DRUG - OTHER] IV SCH ×6 (21:00)
[2022-04-08] MEDS ORDERED: TPN CENTRAL IV SCH ×6 (21:00)
[2022-04-08] MEDS ORDERED: NA PHOS IV SCH ×6 (21:00)
[2022-04-08] MEDS ORDERED: MVI IV SCH ×6 (21:00)
[2022-04-08] MEDS ORDERED: TRACE ELEMENTS IV SCH ×6 (21:00)
--- NOTE | 2022-04-08 21:30 | NUR ---
HIGH ALERT NOTE: Called Dr. fuentes back at [[phone] identified within the medical roster to verify physician authenticity.pt.icu:#[id number]:[email or web address] presented elevated blood glucose:418mg/dl.dr. fuentes paged apprised order lantus;15-u x1.
[2022-04-08] MEDS ORDERED: INSULIN GLARGINE 100 UNITS/ML, 10 ML VIAL SUBCUT ONE (21:45)
[2022-04-08] MEDS: FAT EMULSIONS 250 ML IV SCH (23:05)
[2022-04-09] VITALS (25 sets, daily range): BP systolic 100–154
[2022-04-09] MEDS: METHYLPREDNISOLONE SOD SUCC 40 MG/ML VIAL IVP SCH ×4 (02:31→21:37)
[2022-04-09] MEDS: IPRATROPIUM BROM 0.5 MG/2.5 ML VIAL.NEB (ATROVENT) INH SCH ×6 (03:14→23:04)
[2022-04-09] MEDS: ALBUTEROL SULFATE 0.083% 2.5 MG/3 ML VIAL.NEB INH SCH ×6 (03:14→23:03)
[2022-04-09] MEDS: INSULIN REGULAR, HUMAN 100 UNITS/ML, 3 ML VIAL (humuLIN R) SUBCUT PRN ×4 (05:28→21:59)
[2022-04-09 07:30] LABS: CALCIUM 7.9 mg/dL (8.4-11.0); CREATININE 0.51 mg/dL (0.55-1.30); PHOSPHORUS 2.9 mg/dL (2.7-4.5)
[2022-04-09 07:37] LABS: HEMATOCRIT 32.6 % (36-54); HEMOGLOBIN 10.9 g/dL (14.0-18.0); MEAN CORPUSCULAR HEMOGLOBIN 32 pg (27-31); MEAN CORPUSCULAR HGB CONC 34 % (32-36); MEAN CORPUSCULAR VOLUME 95 fL (79.0-98.0); PLATELET COUNT (AUTO) 223 K/uL (130-430); RED BLOOD CELL COUNT(AUTO) 3.41 MIL/uL (4.2-6.2); RED CELL DISTRIBUTION WIDTH 16.5 % (9.0-15.0); WHITE BLOOD COUNT (AUTO) 13.8 K/uL (4.8-10.8)
[2022-04-09] MEDS: BUDESONIDE 0.5 MG/2 ML AMPUL.NEB INH SCH ×2 (07:55→20:09)
[2022-04-09] MEDS: PANTOPRAZOLE SODIUM 40 MG/VIAL (PROTONIX) IVP SCH (08:08)
[2022-04-09] MEDS: FUROSEMIDE 20 MG/2 ML VIAL IVP SCH ×2 (08:08→17:16)
[2022-04-09] MEDS: MEGESTROL ACETATE 400 MG/10 ML UDC PO SCH (08:08)
[2022-04-09] MEDS: ASCORBIC ACID 500 MG TABLET PO SCH ×2 (08:09→21:37)
[2022-04-09] MEDS: LOPERAMIDE HCL 2 MG CAPSULE PO PRN (08:09)
[2022-04-09] MEDS: MODAFINIL 100 MG TABLET (PROVIGIL) PO SCH (08:09)
[2022-04-09] MEDS: ENOXAPARIN SODIUM 40 MG/0.4 ML SYRINGE SUBCUT SCH (08:09)
[2022-04-09] MEDS: ASPIRIN 81 MG TAB.CHEW PO SCH (08:09)
[2022-04-09] MEDS: TAMSULOSIN HCL 0.4 MG CAP PO SCH ×2 (08:09→21:38)
[2022-04-09] MEDS: LACTOBACILLUS RHAMNOSUS GG 1 CAP CAPSULE PO SCH ×2 (08:09→21:38)
[2022-04-09] MEDS: SACUBITRIL/VALSARTAN 24 MG-26 MG 1 TABLET PO SCH ×2 (08:10→21:40)
[2022-04-09] MEDS: SULFAMETHOXAZOLE/TRIMETHOPR DS 1 TABLET PO SCH (08:10)
[2022-04-09] MEDS: CHOLECALCIFEROL (VITAMIN D3) 2,000 UNIT TABLET PO SCH ×2 (08:11→21:39)
[2022-04-09] MEDS: INSULIN GLARGINE 100 UNITS/ML, 10 ML VIAL SQ SCH (08:41)
[2022-04-09 10:16] LABS: BASOPHILS % (MANUAL) 0 % (0-2); EOSINOPHILS % (MANUAL) 0 % (0-7); LYMPHOCYTES % (MANUAL) 3 % (20-46); MONOCYTES % (MANUAL) 0 % (0-11)
--- NOTE | 2022-04-09 11:37 | NUR ---
rt notes 1137 Titrated o2 vapotherm to 35L/ 95% FIO2. Pt not using NRB on top of vapo right now. Pt saturating 95%, coached pt to do deep breathing. will cont to monitor pt.
[2022-04-09] MEDS: ACETAMINOPHEN 325 MG TABLET PO PRN ×2 (15:09→17:10)
--- NOTE | 2022-04-09 20:23 | NUR ---
Patient awake alert assist for oral care HOB elevated activity tolerated on 02 95 % assist for position change at the bedside comfort measures implemented skin dry warm no DIABETIC Reaction noted / .
[2022-04-09] MEDS ORDERED: TRACE ELEMENTS IV SCH ×7 (21:00)
[2022-04-09] MEDS ORDERED: INSULIN GLARGINE 100 UNITS/ML, 10 ML VIAL SQ SCH (21:00)
[2022-04-09] MEDS ORDERED: [UNRECOGNIZED DRUG - OTHER] IV SCH ×7 (21:00)
[2022-04-09] MEDS ORDERED: NA PHOS IV SCH ×7 (21:00)
[2022-04-09] MEDS ORDERED: MVI IV SCH ×7 (21:00)
[2022-04-09] MEDS ORDERED: TPN CENTRAL IV SCH ×7 (21:00)
[2022-04-09] MEDS: FAT EMULSIONS 250 ML IV SCH (21:35)
[2022-04-09] MEDS: ATORVASTATIN 20 MG TABLET PO SCH (21:38)
--- NOTE | 2022-04-09 22:00 | NUR ---
phoned paged DR KIM GARNICA for update patient BSG @ 466 mg dl
--- NOTE | 2022-04-09 22:58 | NUR ---
SPOKE WITH DR KIM GARNICA and updated DR ALVAREZ patients BSG elevated @ 466 mg dl .
--- NOTE | 2022-04-09 23:37 | NUR ---
RT NOTES. PT HAS REFUSED THE BIPAP. RATHER HAVE NRB ON. PT'S SPO2 IS HIGH 90S W/ HIGH FLOW AND NRB. MID TO LOW 90S WITH JUST HI FLOW WHEN PT IS CLAM. PT IS VERY ANXIOUS. HR AND RR ARE INCREASED. WILL CONTINUE TO MONITOR.
[2022-04-10] VITALS (35 sets, daily range): BP systolic 67–138
--- NOTE | 2022-04-10 00:43 | NUR ---
Patient using urinal as needed on 02 SAT 94 % chest movement symmetrical skin dry warm sips of water tolerated / .
[2022-04-10] MEDS ORDERED: IPRATROPIUM BROM 0.5 MG/2.5 ML VIAL.NEB (ATROVENT) INH ONE (01:29)
[2022-04-10] MEDS ORDERED: ALBUTEROL SULFATE 0.083% 2.5 MG/3 ML VIAL.NEB INH ONE (01:30)
[2022-04-10] MEDS: METHYLPREDNISOLONE SOD SUCC 40 MG/ML VIAL IVP SCH ×4 (02:28→20:45)
[2022-04-10] MEDS: ALBUTEROL SULFATE 0.083% 2.5 MG/3 ML VIAL.NEB INH SCH ×6 (03:06→23:17)
[2022-04-10] MEDS: IPRATROPIUM BROM 0.5 MG/2.5 ML VIAL.NEB (ATROVENT) INH SCH ×5 (03:06→23:17)
--- NOTE | 2022-04-10 03:49 | NUR ---
Patient REFUSING Bipap on high flow , SAT 93 % NEBULIZER Tx given tolerated / .
--- NOTE | 2022-04-10 05:39 | NUR ---
RT NOTES. 2 RNs AND 2 RTs HAD TO CONVINCE PT TO GO ON BIPAP DUE TO DESATURATION ON MAX HI FLOW AND 15L NRB. PT TOLERATING FAIRLY AND O2 SATURATION NOW IN NORMAL RANGE. TACHYCARDIA & TACHYPNEA STILL REMAIN. WILL CONTINUE TO MONITOR.
--- NOTE | 2022-04-10 06:18 | NUR ---
phoned paged dr gina arnold d/t elevated BSG @ 489 mg dl .
[2022-04-10] MEDS: INSULIN REGULAR, HUMAN 100 UNITS/ML, 3 ML VIAL (humuLIN R) SUBCUT PRN ×4 (06:26→20:42)
--- NOTE | 2022-04-10 06:31 | NUR ---
DR. ANN-MARIE GARNICA MADE AWARE OF CURRENT ABGS AND PT TACHYPNIC IN THE 50s. PER MD CONTINUE WITH BIPAP TOLERATED. MD ALSO MADE AWARE OF PTS ELEVATED BLOOD SUGAR 489. PER INCREASED LANTUS TO 30 UNITS BID. WILL CARRY OUT ORDERED.
--- NOTE | 2022-04-10 06:34 | NUR ---
ABG & BSG Reported to DR JACOBSEN , with New orders .
[2022-04-10 06:42] LABS: EOSINOPHILS % (AUTO) 0.1 % (0.0-4.0); HEMATOCRIT 36.5 % (36-54); HEMOGLOBIN 12.3 g/dL (14.0-18.0); LYMPHOCYTES # (AUTO) 0.4 K/uL (1.0-5.5); LYMPHOCYTES % (AUTO) 1.5 % (20.5-51.5); MEAN CORPUSCULAR HEMOGLOBIN 32 pg (27-31); MEAN CORPUSCULAR HGB CONC 34 % (32-36); MEAN CORPUSCULAR VOLUME 96 fL (79.0-98.0); MONOCYTES # (AUTO) 0.1 K/uL (0.0-1.0); MONOCYTES % (AUTO) 0.4 % (1.7-9.3); NEUTROPHILS # (AUTO) 24.5 K/uL (1.8-7.7); PLATELET COUNT (AUTO) 253 K/uL (130-430); RED BLOOD CELL COUNT(AUTO) 3.81 MIL/uL (4.2-6.2); RED CELL DISTRIBUTION WIDTH 16.7 % (9.0-15.0)
[2022-04-10 07:15] LABS: CALCIUM 8.2 mg/dL (8.4-11.0)
[2022-04-10 07:16] LABS: ALBUMIN 2.5 g/dL (3.4-4.8); CREATININE 0.46 mg/dL (0.55-1.30); PHOSPHORUS 2.9 mg/dL (2.7-4.5); TOTAL BILIRUBIN 0.7 mg/dL (0.0-1.0)
[2022-04-10] MEDS: FUROSEMIDE 20 MG/2 ML VIAL IVP SCH ×2 (08:00→17:23)
--- NOTE | 2022-04-10 08:48 | NUR ---
Received report from shift boss RN, pt connected to hiflo @ 21% but oxygen saturation 80, increased to previous days reading of 40L 100%, pt tolerating well, oxygen saturation improved to 96%. Paged Dr Juarez @ [phone] about pt's BP which has been low since shift change , first decreased the precedex by half from 1.5 to 0.5 after 15 mins with no improvement of BP, STOPPED THE PRECEDEX GTT. awaiting call back.
[2022-04-10] MEDS: SACUBITRIL/VALSARTAN 24 MG-26 MG 1 TABLET PO SCH ×2 (09:00→20:35)
[2022-04-10] MEDS ORDERED: INSULIN GLARGINE 100 UNITS/ML, 10 ML VIAL SQ SCH (09:00)
[2022-04-10] MEDS: MEGESTROL ACETATE 400 MG/10 ML UDC PO SCH (09:12)
[2022-04-10] MEDS: TAMSULOSIN HCL 0.4 MG CAP PO SCH ×2 (09:13→20:36)
[2022-04-10] MEDS: ASPIRIN 81 MG TAB.CHEW PO SCH (09:13)
[2022-04-10] MEDS: ASCORBIC ACID 500 MG TABLET PO SCH ×2 (09:14→20:36)
[2022-04-10] MEDS: PANTOPRAZOLE SODIUM 40 MG/VIAL (PROTONIX) IVP SCH (09:15)
[2022-04-10] MEDS: LOPERAMIDE HCL 2 MG CAPSULE PO PRN (09:16)
[2022-04-10] MEDS: LACTOBACILLUS RHAMNOSUS GG 1 CAP CAPSULE PO SCH ×2 (09:17→20:36)
[2022-04-10] MEDS: CHOLECALCIFEROL (VITAMIN D3) 2,000 UNIT TABLET PO SCH ×2 (09:18→20:37)
[2022-04-10] MEDS: ENOXAPARIN SODIUM 40 MG/0.4 ML SYRINGE SUBCUT SCH (09:18)
[2022-04-10] MEDS: SULFAMETHOXAZOLE/TRIMETHOPR DS 1 TABLET PO SCH (09:22)
[2022-04-10] MEDS: MODAFINIL 100 MG TABLET (PROVIGIL) PO SCH (09:33)
--- NOTE | 2022-04-10 11:30 | NUR ---
restared precedex, see MAR, pt is more awake and restless, HR elevated and BP now within normal range, see vital sign flowsheet. also @ bedside, updated and answered all questions, Pt tolerating Hiflo, continue plan of care.
--- NOTE | 2022-04-10 13:11 | NUR ---
CM NOTE: Spoke with [facility] ctr, transfer ctr, rep Sanam, [phone] option 2, transfer/DC barrier: on high flow, on precedex drip. per Sanam, pt is young for lung transplant
[2022-04-10] MEDS: BUDESONIDE 0.5 MG/2 ML AMPUL.NEB INH SCH ×2 (15:54→20:05)
[2022-04-10] MEDS: FAT EMULSIONS 250 ML IV SCH (20:35)
[2022-04-10] MEDS: ATORVASTATIN 20 MG TABLET PO SCH (20:36)
[2022-04-10] MEDS: INSULIN GLARGINE 100 UNITS/ML, 10 ML VIAL SQ SCH (20:41)
[2022-04-10] MEDS ORDERED: [UNRECOGNIZED DRUG - OTHER] IV SCH ×8 (21:00)
[2022-04-10] MEDS ORDERED: MVI IV SCH ×8 (21:00)
[2022-04-10] MEDS ORDERED: TRACE ELEMENTS IV SCH ×8 (21:00)
[2022-04-10] MEDS ORDERED: TPN CENTRAL IV SCH ×8 (21:00)
[2022-04-10] MEDS ORDERED: NA PHOS IV SCH ×8 (21:00)
[2022-04-11] VITALS (38 sets, daily range): BP systolic 61–170
[2022-04-11] MEDS: ALBUTEROL SULFATE 0.083% 2.5 MG/3 ML VIAL.NEB INH SCH ×7 (03:36→23:07)
[2022-04-11] MEDS: IPRATROPIUM BROM 0.5 MG/2.5 ML VIAL.NEB (ATROVENT) INH SCH ×6 (03:36→23:06)
[2022-04-11] MEDS: METHYLPREDNISOLONE SOD SUCC 40 MG/ML VIAL IVP SCH ×4 (03:54→21:48)
[2022-04-11] MEDS: INSULIN REGULAR, HUMAN 100 UNITS/ML, 3 ML VIAL (humuLIN R) SUBCUT PRN ×3 (06:11→22:48)
--- NOTE | 2022-04-11 06:57 | NUR ---
REMAINS ON HFNC +NRB 40l 100%TOLERATING SO FAR WITH ON AND OFF DESATS ON EXERTION AND MOVEMENTS CONDOM CATH PLACED AND ITS WORKING WELL. S/D DR ESTEVEZ THIS AM ROUNDS NO NEW ORDERS.
[2022-04-11] MEDS: BUDESONIDE 0.5 MG/2 ML AMPUL.NEB INH SCH ×2 (07:15→20:00)
[2022-04-11 07:59] LABS: ALBUMIN 2.2 g/dL (3.4-4.8); CALCIUM 8.3 mg/dL (8.4-11.0); CREATININE 0.41 mg/dL (0.55-1.30); PHOSPHORUS 2.3 mg/dL (2.7-4.5); TOTAL BILIRUBIN 0.8 mg/dL (0.0-1.0)
[2022-04-11] MEDS: PANTOPRAZOLE SODIUM 40 MG/VIAL (PROTONIX) IVP SCH (08:11)
[2022-04-11] MEDS: LACTOBACILLUS RHAMNOSUS GG 1 CAP CAPSULE PO SCH ×2 (08:13→21:00)
[2022-04-11] MEDS: LOPERAMIDE HCL 2 MG CAPSULE PO PRN (08:13)
[2022-04-11] MEDS: ASPIRIN 81 MG TAB.CHEW PO SCH (08:14)
[2022-04-11] MEDS: ASCORBIC ACID 500 MG TABLET PO SCH ×2 (08:14→21:00)
[2022-04-11] MEDS: MEGESTROL ACETATE 400 MG/10 ML UDC PO SCH (08:14)
[2022-04-11] MEDS: SACUBITRIL/VALSARTAN 24 MG-26 MG 1 TABLET PO SCH ×2 (08:15→21:00)
[2022-04-11] MEDS: TAMSULOSIN HCL 0.4 MG CAP PO SCH ×2 (08:17→21:00)
[2022-04-11] MEDS: MODAFINIL 100 MG TABLET (PROVIGIL) PO SCH (08:17)
[2022-04-11] MEDS: FUROSEMIDE 20 MG/2 ML VIAL IVP SCH ×2 (08:18→18:14)
[2022-04-11] MEDS: ENOXAPARIN SODIUM 40 MG/0.4 ML SYRINGE SUBCUT SCH (08:18)
[2022-04-11] MEDS: CHOLECALCIFEROL (VITAMIN D3) 2,000 UNIT TABLET PO SCH ×2 (08:19→21:00)
[2022-04-11 08:34] LABS: HEMATOCRIT 36.9 % (36-54); HEMOGLOBIN 12.1 g/dL (14.0-18.0); MEAN CORPUSCULAR HEMOGLOBIN 32 pg (27-31); MEAN CORPUSCULAR HGB CONC 33 % (32-36); MEAN CORPUSCULAR VOLUME 97 fL (79.0-98.0); PLATELET COUNT (AUTO) 174 K/uL (130-430); RED BLOOD CELL COUNT(AUTO) 3.82 MIL/uL (4.2-6.2); RED CELL DISTRIBUTION WIDTH 16.9 % (9.0-15.0); WHITE BLOOD COUNT (AUTO) 18.1 K/uL (4.8-10.8)
[2022-04-11] MEDS: INSULIN GLARGINE 100 UNITS/ML, 10 ML VIAL SQ SCH ×2 (08:37→22:46)
[2022-04-11] MEDS: CEFEPIME 2 GM in D5W 100 ML IV SCH (11:41)
--- NOTE | 2022-04-11 13:33 | NUR ---
Spoke to CM at [facility] regarding transfer to higher level of care for lung transplant. She stated her medical imaging director does not agree with transfer at this time, When the patient is medically stable, he can be referred to [facility] for transplant
[2022-04-11 13:34] LABS: BAND % (MANUAL) 5 % (0-6); BASOPHILS % (MANUAL) 0 % (0-2); EOSINOPHILS % (MANUAL) 0 % (0-7); LYMPHOCYTES % (MANUAL) 2 % (20-46); MONOCYTES % (MANUAL) 3 % (0-11)
--- NOTE | 2022-04-11 19:40 | NUR ---
PATIENT DIAPHORETIC SATS-66% ON 100% HFNC 40L WITH NRB HR-177 RT AT BEDSIDE PLACED ON BIPAP CALLED DR ALVAREZ AND AWAITING TO CALL BACK.
--- NOTE | 2022-04-11 19:40 | NUR ---
RT NOTES OBSERVED PT WITH HIGH RESPIRATORY RATE AT 41 BREATHS/MIN. HEART RATE 177. PT IS DIAPHORETIC. LOW SPO2 66%. PLACE ON AVAPS. RN RAISA AWARE. DR TO BE NOTIFIED.
--- NOTE | 2022-04-11 20:00 | NUR ---
HR REMAINS HIGH AT 180-190 SVT ON MONITOR, PATIENT IS SO TACHPNEIC RR-50-67 LOOKING HYPOXIC AND TIRED, CALLED DR JACOBSEN AWAITING TO CALL BACK SPOKE TO AT BEDSIDE IF WHAT SHE WANTED IF WORSE COME'S TO WORSE WHAT SHE WANNA DO SHE SAID SHE DONT KNOW SHE WANT TO TALK TO THE AWARE WE PAGED ALREADY.
--- NOTE | 2022-04-11 20:20 | NUR ---
REMAINS [id number] PRECEDEX GTT TITRATED TO [address] DR TO CALL BACK. 2030 DR JACOBSEN CALLED BACK INFORMED HIM PATIENTS WAS ON SVT AND TACHYPNEIC [id number] AND [id number] ADVISED TO INTUBATE IF NEEDED AND SPOKE TO AND EXPLAINED TO WHY INTUBATION NEEDED AT THIS TIME.
--- NOTE | 2022-04-11 20:40 | NUR ---
CALLED ER DR ALVARADO CAME AND INTUBATE PATIENT WITH RSI ETOMIDATE-15MG AND VECURONIUM-10 MG, ETT 7.5 PLACED AT 23CM LIP, ON AC-18,TV-500,FIO2-100% AND PEEP-5, SEDATION TO START DIPRIVAN AND FENTANYL. GTT
--- NOTE | 2022-04-11 20:40 | NUR ---
RT NOTES ASSISTED DR ALVARADO WITH INTUBATION. SIZE 7.5 ETT INSERTED AND PLACED AT 23CM LIP LINE. OBSERVED CO2 DETECTOR YELLOW COLOR CHANGE. BILATERAL B/S AUSCULTATED, CHEST RISE OBSERVED. SECURED ETT WITH A LESLY. PLACED ON VENTILATOR. CXRAY TO BE OBTAINED.
[2022-04-11] MEDS ORDERED: LORazepam 2 MG/ML VIAL IVP PRN (20:45)
[2022-04-11] MEDS ORDERED: NA PHOS IV SCH ×8 (21:00)
[2022-04-11] MEDS: ATORVASTATIN 20 MG TABLET PO SCH (21:00)
[2022-04-11] MEDS ORDERED: [UNRECOGNIZED DRUG - OTHER] IV SCH ×8 (21:00)
[2022-04-11] MEDS ORDERED: TPN CENTRAL IV SCH ×8 (21:00)
[2022-04-11] MEDS ORDERED: MVI IV SCH ×8 (21:00)
[2022-04-11] MEDS ORDERED: TRACE ELEMENTS IV SCH ×8 (21:00)
[2022-04-11] MEDS: FAT EMULSIONS 250 ML IV SCH (21:51)
--- NOTE | 2022-04-11 22:00 | NUR ---
S/B DR ANN-MARIE VALLECILLO SEEN BY HIM NO MADE HIM AWARE BP BOTTOM DOWN AFTER RSI MEDS AND ADVISED TO START LEVOPHED IF NEEDED, IVF ORDERED. SEE CPOE
[2022-04-11] MEDS: PROPOFOL DRIP 100 ML IV PRN (22:59)
[2022-04-11] MEDS: FENTANYL CITRATE-0.9 % NACL/PF 100 ML IV PRN (23:03)
[2022-04-12] VITALS (48 sets, daily range): BP systolic 75–131
[2022-04-12] MEDS: CEFEPIME 2 GM in D5W 100 ML IV SCH ×2 (00:52→11:55)
[2022-04-12] MEDS: D5/0.45 NS 1,000 ML IV SCH ×2 (00:52→18:50)
[2022-04-12] MEDS: METHYLPREDNISOLONE SOD SUCC 40 MG/ML VIAL IVP SCH ×4 (02:20→21:15)
[2022-04-12] MEDS ORDERED: METHYLPREDNISOLONE SOD SUCC 40 MG/ML VIAL ONE (02:21)
[2022-04-12] MEDS ORDERED: NOREPINEPHRINE 4 MG/4 ML VIAL IV ONE (02:55)
[2022-04-12] MEDS: ALBUTEROL SULFATE 0.083% 2.5 MG/3 ML VIAL.NEB INH SCH ×6 (03:00→23:19)
[2022-04-12] MEDS: NOREPINEPHRINE BITARTRATE 8 MG in D5W 242 ML IV PRN ×4 (03:16→18:46)
[2022-04-12] MEDS: IPRATROPIUM BROM 0.5 MG/2.5 ML VIAL.NEB (ATROVENT) INH SCH ×6 (03:40→23:19)
[2022-04-12] MEDS: FENTANYL CITRATE-0.9 % NACL/PF 100 ML IV PRN ×4 (04:37→22:14)
[2022-04-12] MEDS: INSULIN REGULAR, HUMAN 100 UNITS/ML, 3 ML VIAL (humuLIN R) SUBCUT PRN ×4 (06:13→20:41)
[2022-04-12 06:57] LABS: CALCIUM 7.1 mg/dL (8.4-11.0); CREATININE 0.48 mg/dL (0.55-1.30)
[2022-04-12 07:39] LABS: HEMATOCRIT 31.4 % (36-54); HEMOGLOBIN 10.4 g/dL (14.0-18.0); MEAN CORPUSCULAR HEMOGLOBIN 32 pg (27-31); MEAN CORPUSCULAR HGB CONC 33 % (32-36); MEAN CORPUSCULAR VOLUME 96 fL (79.0-98.0); PLATELET COUNT (AUTO) 159 K/uL (130-430); RED BLOOD CELL COUNT(AUTO) 3.26 MIL/uL (4.2-6.2); RED CELL DISTRIBUTION WIDTH 16.7 % (9.0-15.0); WHITE BLOOD COUNT (AUTO) 23.3 K/uL (4.8-10.8)
[2022-04-12] MEDS: BUDESONIDE 0.5 MG/2 ML AMPUL.NEB INH SCH ×2 (07:42→19:44)
[2022-04-12] MEDS: PROPOFOL DRIP 100 ML IV PRN ×2 (08:18→09:01)
[2022-04-12] MEDS: MEGESTROL ACETATE 400 MG/10 ML UDC PO SCH (08:25)
[2022-04-12] MEDS: PANTOPRAZOLE SODIUM 40 MG/VIAL (PROTONIX) IVP SCH (08:25)
[2022-04-12] MEDS: MODAFINIL 100 MG TABLET (PROVIGIL) PO SCH (08:26)
[2022-04-12] MEDS: ASPIRIN 81 MG TAB.CHEW PO SCH (08:26)
[2022-04-12] MEDS: ASCORBIC ACID 500 MG TABLET PO SCH (08:26)
[2022-04-12] MEDS: ENOXAPARIN SODIUM 40 MG/0.4 ML SYRINGE SUBCUT SCH (08:26)
[2022-04-12] MEDS: LACTOBACILLUS RHAMNOSUS GG 1 CAP CAPSULE PO SCH (08:27)
[2022-04-12] MEDS: FUROSEMIDE 20 MG/2 ML VIAL IVP SCH ×2 (08:28→17:05)
[2022-04-12] MEDS: TAMSULOSIN HCL 0.4 MG CAP PO SCH ×2 (08:30→20:42)
[2022-04-12] MEDS: CHOLECALCIFEROL (VITAMIN D3) 2,000 UNIT TABLET PO SCH (08:30)
--- NOTE | 2022-04-12 08:33 | NUR ---
Received call from radiologist Dr. Mcgraw. NG/OGT tube needs to be advanced approx 11cm. Bedside RN made aware and already advanced NG tube.
[2022-04-12] MEDS: SULFAMET 800MG/TMP 160MG, 20 ML UDBTL GT SCH (08:34)
[2022-04-12] MEDS: SACUBITRIL/VALSARTAN 24 MG-26 MG 1 TABLET PO SCH ×2 (08:34→20:46)
--- NOTE | 2022-04-12 08:39 | NUR ---
Per order advanced OG by 9cm
[2022-04-12] MEDS ORDERED: COMMUNICATION ORDER XX ONE (08:45)
[2022-04-12] MEDS: INSULIN GLARGINE 100 UNITS/ML, 10 ML VIAL SQ SCH ×2 (08:59→20:40)
--- NOTE | 2022-04-12 10:22 | NUR ---
SPOKE WITH MUNIR REQUESTING CALL BACK FROM DR. JACOBSEN FOR CRITICAL LABS.
--- NOTE | 2022-04-12 10:37 | NUR ---
Paged Dr. Stanford to report ABG results ,orders to increase rate from 18 to 20. HEALTH ASSISTANT Fabi @ bedside and changed settings
[2022-04-12] MEDS ORDERED: LOPERAMIDE HCL 2 MG CAPSULE GT PRN (12:27)
--- NOTE | 2022-04-12 13:42 | NUR ---
Nutrition F/U RD reviewed pts current EMR including diet hx, physician notes, nursing notes, pertinent labs/meds/procedures, care trends and care activity. Short note d/t high workload Subjective Information : Late f/u due to no RD in the office yesterday and heavy caseload. RD and internet retailer attended ICU rounds this morning. Primary RN reported that pt was intubated last night. Pt is currently on TPN, D5 @ 50mL/hr, propofol @ 4.028mL/hr (provides [address] witnessed Vetot of 16. RD asked RN if we could start TF instead of TPN, as to keep his gut functioning well. She said that now he is intubated, that is a good idea. Per EMR review, abd is soft, non-distended w/ active bowel sounds. Pt is currently meeting nutritional needs. Current Diet Order/Nutrition Support: NPO x 0 day & TPN D30%, AA10% at 70 ml/hr, IL20% at 10 ml/hr via central line (starting tonight) TPN Provides: 1673 kcal/day, 84 gm protein/day, 1920 ml total volume/day, and GIR: 2.6 mg CHO/kg/min TPN Meets: 92% of est kcal needs, 105% of lower end of est PRO needs, and 107 % of est fluid needs % PO intake: NPO Last BM: x2 04/10 NEW Estimated Energy Expenditure (kcals/day) 1812 kcal (PSU 2003: vent/ ICU. MSJ 1445, Tmax 36.77, Ve 16) Estimated Protein Required (g/day) 80-101 (1.2-1.5 g/kg CBW (67 kg) d/t critically ill) NEW Estimated Fluid Required (l/day) 1.8L (1 ml/kcal/day for GERIAT maintenance) Problem/Etiology/Signs/Symptoms * Suboptimal EN support R/T risk for overfeeding AEB current TF prescription exceeds 160% of estimated caloric needs and meets 161% of upper end of estimated protein needs. (Resolved) * Suboptimal nutrient intakes R/T decreased appetite, labored breathing AEB documented decreased PO intake. (ongoing) * Inadequate TPN support R/T metabolic demands AEB estimated nutritional requirements for respiratory failure/critical illness. (Resolved) Expected Outcomes/Goals PO intake provides >85% estimated nutrient needs, nutrition-related labs trending WNL, continued skin integrity, BM q1-3 days Dietitian Recommendations * Consider OGT, to keep the gut functioning properly, and since pt is intubated Glucerna 1.5 @ 50mL/hr (goal) via OGT Provides (w/ D5): 2004 kcal, 99 g PRO, 911 mL free water Meets: 111% of est kcal, 98% of upper est PRO, 51% of est fluids * Consider FWF 150mL q4h, or per MD *If OGT is not appropriate, continue TPN D30%, AA10% at 70 ml/hr (goal rate), IL20% at 10 ml/hr via central line Provides: 1673 kcal/day, 84 gm protein/day, 1920 ml total volume/day, and GIR: 2.6 mg CHO/kg/min Meets: 92% of est kcal needs, 105% of lower end of est PRO needs, and 107 % of est fluid needs * If extubated, please contact RD to re-assess nutritional needs Follow up High Risk: RD to F/U within 2-3 days YUNG, MPH, RD
[2022-04-12] MEDS ORDERED: VECURONIUM BROMIDE 10 MG/VIAL (NORCURON) IV ONE (13:43)
[2022-04-12] MEDS ORDERED: ETOMIDATE 20 MG/ 10 ML VIAL (AMIDATE) IVP ONE (13:43)
--- NOTE | 2022-04-12 13:44 | NUR ---
Dietitian Recommendations * Consider OGT, to keep the gut functioning properly, and pt is intubated --Glucerna 1.5 @ 50mL/hr (goal) via OGT Provides (w/ D5): 2004 kcal, 99 g PRO, 911 mL free water Meets: 111% of est kcal, 98% of upper est PRO, 51% of est fluids * Consider FWF 150mL q4h, or per MD *If OGT is not appropriate, continue TPN D30%, AA10% at 70 ml/hr (goal rate), IL20% at 10 ml/hr via central line Provides: 1673 kcal/day, 84 gm protein/day, 1920 ml total volume/day, and GIR: 2.6 mg CHO/kg/min Meets: 92% of est kcal needs, 105% of lower end of est PRO needs, and 107 % of est fluid needs * If extubated, please contact RD to re-assess nutritional needs GS, MPH, RD Please refer to Nutrition F/U for further details. Thanks!
[2022-04-12 13:47] LABS: BAND % (MANUAL) 7 % (0-6); BASOPHILS % (MANUAL) 0 % (0-2); EOSINOPHILS % (MANUAL) 0 % (0-7); LYMPHOCYTES % (MANUAL) 3 % (20-46); MONOCYTES % (MANUAL) 1 % (0-11)
--- NOTE | 2022-04-12 15:31 | NUR ---
Dr. Martines @ bedside, orders to follow PRESIDENT CEO & FOUNDER'S recommendations and start TF and d/c TPN and lipids. Called kitchen to request TF
--- NOTE | 2022-04-12 19:20 | NUR ---
Opening notes Received report from endorsing morning shift RN for continuity of care. Patient is lying in bed with IVF D5 1/2 NS @ 50 mL/hr, levophed @ 0.6 mcg/kg/min, propofol @ 10 mcg/kg/min, and fentanyl @ 25 mcg/hr. Patient's vital signs blood pressure 91/58, heart rate 69, respirations 23, and SPO2 99% on ventilator. Ventilator settings AC 20, tidal volume 500, FIO2 70%, and peep of 5. Mason catheter is in place draining to gravity. Bed is locked and in lowest position, fall and safety precautions is in place.
[2022-04-12] MEDS: CHOLECALCIFEROL (VITAMIN D3) 2,000 UNIT TABLET GT SCH (20:42)
[2022-04-12] MEDS: LACTOBACILLUS RHAMNOSUS GG 1 CAP CAPSULE GT SCH (20:44)
[2022-04-12] MEDS: ATORVASTATIN 20 MG TABLET GT SCH (20:44)
[2022-04-12] MEDS: ASCORBIC ACID 500 MG TABLET GT SCH (20:45)
[2022-04-12] MEDS: FAT EMULSIONS 250 ML IV SCH (20:45)
[2022-04-12] MEDS ORDERED: NA PHOS IV SCH ×9 (21:00)
[2022-04-12] MEDS ORDERED: SODIUM CHLORIDE IV SCH ×9 (21:00)
[2022-04-12] MEDS ORDERED: [UNRECOGNIZED DRUG - OTHER] IV SCH ×9 (21:00)
[2022-04-12] MEDS ORDERED: TPN CENTRAL IV SCH ×9 (21:00)
[2022-04-13] VITALS (33 sets, daily range): BP systolic 75–158
[2022-04-13] MEDS: CEFEPIME 2 GM in D5W 100 ML IV SCH ×3 (01:00→23:42)
[2022-04-13] MEDS: PROPOFOL DRIP 100 ML IV PRN ×5 (01:18→21:34)
[2022-04-13] MEDS: METHYLPREDNISOLONE SOD SUCC 40 MG/ML VIAL IVP SCH ×4 (03:02→20:35)
[2022-04-13] MEDS: NOREPINEPHRINE BITARTRATE 8 MG in D5W 242 ML IV PRN ×3 (03:14→10:17)
[2022-04-13] MEDS: IPRATROPIUM BROM 0.5 MG/2.5 ML VIAL.NEB (ATROVENT) INH SCH ×6 (03:21→23:19)
[2022-04-13] MEDS: ALBUTEROL SULFATE 0.083% 2.5 MG/3 ML VIAL.NEB INH SCH ×6 (03:21→23:19)
[2022-04-13] MEDS: INSULIN REGULAR, HUMAN 100 UNITS/ML, 3 ML VIAL (humuLIN R) SUBCUT PRN ×5 (06:24→20:38)
[2022-04-13 06:38] LABS: HEMATOCRIT 35.3 % (36-54); HEMOGLOBIN 11.7 g/dL (14.0-18.0); LYMPHOCYTES # (AUTO) 0.6 K/uL (1.0-5.5); LYMPHOCYTES % (AUTO) 2.7 % (20.5-51.5); MEAN CORPUSCULAR HEMOGLOBIN 32 pg (27-31); MEAN CORPUSCULAR HGB CONC 33 % (32-36); MEAN CORPUSCULAR VOLUME 96 fL (79.0-98.0); MONOCYTES # (AUTO) 0.2 K/uL (0.0-1.0); NEUTROPHILS # (AUTO) 20.8 K/uL (1.8-7.7); NEUTROPHILS % (AUTO) 96.3 % (40.0-70.0); PLATELET COUNT (AUTO) 168 K/uL (130-430); RED BLOOD CELL COUNT(AUTO) 3.66 MIL/uL (4.2-6.2); RED CELL DISTRIBUTION WIDTH 16.7 % (9.0-15.0); WHITE BLOOD COUNT (AUTO) 21.6 K/uL (4.8-10.8)
[2022-04-13] MEDS: BUDESONIDE 0.5 MG/2 ML AMPUL.NEB INH SCH ×2 (07:15→19:51)
--- NOTE | 2022-04-13 07:15 | NUR ---
RT NOTES FIO2 to 0.65, per titration order. No adverse reactions noted. will monitor pt
--- NOTE | 2022-04-13 09:24 | NUR ---
RT NOTES FIO2 TO 0.60 PER ABG RESULT. RN AWARE
[2022-04-13 09:33] LABS: CALCIUM 7.8 mg/dL (8.4-11.0); CREATININE 0.51 mg/dL (0.55-1.30); PHOSPHORUS 2.6 mg/dL (2.7-4.5)
[2022-04-13] MEDS: INSULIN GLARGINE 100 UNITS/ML, 10 ML VIAL SQ SCH ×2 (09:49→20:37)
[2022-04-13] MEDS: ASPIRIN 81 MG TAB.CHEW GT SCH (09:53)
[2022-04-13] MEDS: PANTOPRAZOLE SODIUM 40 MG/VIAL (PROTONIX) IVP SCH (09:53)
[2022-04-13] MEDS: MODAFINIL 100 MG TABLET (PROVIGIL) PO SCH (09:54)
[2022-04-13] MEDS: TAMSULOSIN HCL 0.4 MG CAP PO SCH (09:55)
[2022-04-13] MEDS: ENOXAPARIN SODIUM 40 MG/0.4 ML SYRINGE SUBCUT SCH (09:56)
[2022-04-13] MEDS: ASCORBIC ACID 500 MG TABLET GT SCH ×2 (09:56→20:36)
[2022-04-13] MEDS: CHOLECALCIFEROL (VITAMIN D3) 2,000 UNIT TABLET GT SCH ×2 (09:56→20:36)
[2022-04-13] MEDS: SACUBITRIL/VALSARTAN 24 MG-26 MG 1 TABLET PO SCH (10:03)
[2022-04-13] MEDS: SULFAMET 800MG/TMP 160MG, 20 ML UDBTL GT SCH (10:04)
[2022-04-13] MEDS: LACTOBACILLUS RHAMNOSUS GG 1 CAP CAPSULE GT SCH ×2 (10:14→20:36)
[2022-04-13] MEDS: MEGESTROL ACETATE 400 MG/10 ML UDC GT SCH (10:15)
--- NOTE | 2022-04-13 11:18 | NUR ---
RT NOTES Vent to AC [address] Stanford's order
[2022-04-13] MEDS: FUROSEMIDE 20 MG/2 ML VIAL IVP SCH ×2 (15:06→18:02)
[2022-04-13] MEDS: D5/0.45 NS 1,000 ML IV SCH (15:39)
[2022-04-13] MEDS: FENTANYL CITRATE-0.9 % NACL/PF 100 ML IV PRN (16:42)
[2022-04-13] MEDS: NOREPINEPHRINE BITARTRATE 32 MG in D5W 242 ML IV PRN ×2 (17:18→19:27)
[2022-04-13] MEDS ORDERED: PANTOPRAZOLE SODIUM 40 MG/VIAL (PROTONIX) IVP ONE (18:30)
[2022-04-13] MEDS: METOCLOPRAMIDE HCL 10 MG/2 ML VIAL IVP SCH (18:47)
[2022-04-13] MEDS ORDERED: FLUCONAZOLE 200 mg/ NS 100 ML IV SCH (19:00)
[2022-04-13] MEDS: ATORVASTATIN 20 MG TABLET GT SCH (20:36)
[2022-04-14] VITALS (35 sets, daily range): BP systolic 72–131
[2022-04-14] MEDS: FENTANYL CITRATE-0.9 % NACL/PF 100 ML IV PRN ×4 (01:03→22:29)
[2022-04-14] MEDS: METOCLOPRAMIDE HCL 10 MG/2 ML VIAL IVP SCH ×3 (01:55→17:33)
[2022-04-14] MEDS: NOREPINEPHRINE BITARTRATE 32 MG in D5W 242 ML IV PRN ×3 (02:03→22:39)
[2022-04-14] MEDS: PROPOFOL DRIP 100 ML IV PRN ×4 (02:03→19:48)
[2022-04-14] MEDS: ALBUTEROL SULFATE 0.083% 2.5 MG/3 ML VIAL.NEB INH SCH ×6 (03:26→23:24)
[2022-04-14] MEDS: IPRATROPIUM BROM 0.5 MG/2.5 ML VIAL.NEB (ATROVENT) INH SCH ×6 (03:27→23:24)
[2022-04-14] MEDS: METHYLPREDNISOLONE SOD SUCC 40 MG/ML VIAL IVP SCH ×4 (04:12→22:03)
[2022-04-14] MEDS: INSULIN REGULAR, HUMAN 100 UNITS/ML, 3 ML VIAL (humuLIN R) SUBCUT PRN ×3 (06:38→17:31)
[2022-04-14] MEDS: BUDESONIDE 0.5 MG/2 ML AMPUL.NEB INH SCH ×2 (06:59→19:47)
[2022-04-14 07:08] LABS: BASOPHILS % (AUTO) 0.1 % (0.0-2.0); EOSINOPHILS % (AUTO) 0.1 % (0.0-4.0); HEMATOCRIT 30.8 % (36-54); LYMPHOCYTES # (AUTO) 0.7 K/uL (1.0-5.5); LYMPHOCYTES % (AUTO) 3.3 % (20.5-51.5); MEAN CORPUSCULAR HEMOGLOBIN 34 pg (27-31); MEAN CORPUSCULAR HGB CONC 36 % (32-36); MEAN CORPUSCULAR VOLUME 94 fL (79.0-98.0); MONOCYTES # (AUTO) 0.2 K/uL (0.0-1.0); MONOCYTES % (AUTO) 1.2 % (1.7-9.3); NEUTROPHILS # (AUTO) 19.7 K/uL (1.8-7.7); PLATELET COUNT (AUTO) 149 K/uL (130-430); RED BLOOD CELL COUNT(AUTO) 3.26 MIL/uL (4.2-6.2); RED CELL DISTRIBUTION WIDTH 16.8 % (9.0-15.0); WHITE BLOOD COUNT (AUTO) 20.6 K/uL (4.8-10.8)
[2022-04-14 07:38] LABS: ALBUMIN 1.8 g/dL (3.4-4.8); BILIRUBIN,DIRECT 0.2 mg/dL (0.0-0.3); CREATININE 0.67 mg/dL (0.55-1.30); TOTAL BILIRUBIN 0.8 mg/dL (0.0-1.0)
[2022-04-14 07:39] LABS: NEUTROPHILS % (AUTO) 95.3 % (40.0-70.0)
[2022-04-14 07:47] LABS: CALCIUM 6.6 mg/dL (8.4-11.0)
[2022-04-14] MEDS: PANTOPRAZOLE SODIUM 40 MG/VIAL (PROTONIX) IVP SCH (08:45)
[2022-04-14] MEDS: ENOXAPARIN SODIUM 40 MG/0.4 ML SYRINGE SUBCUT SCH (08:45)
--- NOTE | 2022-04-14 08:55 | NUR ---
REMOVE PEEP AND INCREASE FIO2 TO 60% PER MD ALVAREZ. DUE TO PNEUMOTHORAX. ABG FOLLOWS 1 HOUR. SPO2 96%.
[2022-04-14] MEDS: SULFAMET 800MG/TMP 160MG, 20 ML UDBTL GT SCH (09:00)
[2022-04-14] MEDS: ASPIRIN 81 MG TAB.CHEW GT SCH (09:00)
[2022-04-14] MEDS ORDERED: CALCIUM CHLORIDE 1 GM in NS 100 ML IV ONE (09:00)
[2022-04-14] MEDS: ASCORBIC ACID 500 MG TABLET GT SCH ×2 (09:00→20:58)
[2022-04-14] MEDS: LACTOBACILLUS RHAMNOSUS GG 1 CAP CAPSULE GT SCH ×2 (09:00→20:58)
[2022-04-14] MEDS ORDERED: PANTOPRAZOLE SODIUM 40 MG/VIAL (PROTONIX) IVP SCH (09:00)
[2022-04-14] MEDS: MEGESTROL ACETATE 400 MG/10 ML UDC GT SCH (09:00)
[2022-04-14] MEDS: CHOLECALCIFEROL (VITAMIN D3) 2,000 UNIT TABLET GT SCH ×2 (09:00→20:58)
[2022-04-14] MEDS ORDERED: *TPN PER PHARMACY XX PRN (09:00)
[2022-04-14] MEDS: INSULIN GLARGINE 100 UNITS/ML, 10 ML VIAL SQ SCH ×2 (09:01→20:57)
[2022-04-14] MEDS: FUROSEMIDE 20 MG/2 ML VIAL IVP SCH ×2 (09:34→17:32)
[2022-04-14] MEDS: FLUCONAZOLE 200 mg/ NS 100 ML IV SCH (09:35)
--- NOTE | 2022-04-14 10:35 | NUR ---
[id number] VIA AMBU BAG, 15LPM. SPO2 96%, HR 110. PATIENT BACK ON VENT WITH PREVIOUS VENT SETTINGS, AC22, VT 500, NO PEEP, FIO2 60%. NO RESPIRATORY DISTRESS NOTED.
--- NOTE | 2022-04-14 11:47 | NUR ---
[address] Juarez, reported Ca level 6.6, reported CXR results positive for right sided pneumothorax and pneumo-mediastinum. Notified MD unable to place OG/NT, PO meds held and new orders received. [id number] Patient taken to Radiology for CT chest as ordered, accompanied by RT, V BELT MOLD ASSEMBLER AND CURER and Radiology techs. VS 116, 23, 105/55, 98%, on current drips, rates unchanged. Patient tolerating mechanical ventilation well. Patient tolerated procedure well.
--- NOTE | 2022-04-14 12:04 | NUR ---
1200 CHANGED RR TO 24 PER MD ALVAREZ. TITRATED FIO2 DOWN TO 60%. SPO2 95%, HR 116.
[2022-04-14] MEDS: CEFEPIME 2 GM in D5W 100 ML IV SCH (12:35)
[2022-04-14] MEDS: D5/0.45 NS 1,000 ML IV SCH (12:54)
--- NOTE | 2022-04-14 14:57 | NUR ---
Dr. Juarez notified Daniela Marcelo of a consult(pneumothorax/may need tracheostomy
[2022-04-14] MEDS: PHENYLEPHRINE HCL 100 MG in NS 240 ML IV PRN (16:01)
--- NOTE | 2022-04-14 18:27 | NUR ---
0615 CHANGED VENT SETTINGS TO PC 32, F 24 PER MD JACOBSEN. SPO2 97%.
--- NOTE | 2022-04-14 18:32 | NUR ---
1515 Dr Juarez at bedside, assessed patient, new orders received. [address] Stanford, per Dr Juarez request, informed of patient current status, including CT and CXR results, and ventilator changes. No new orders received.
[2022-04-14] MEDS ORDERED: NS 500 ML IV ONE (20:00)
[2022-04-14] MEDS: ATORVASTATIN 20 MG TABLET GT SCH (20:58)
[2022-04-14] MEDS ORDERED: TPN CENTRAL IV SCH ×7 (21:00)
[2022-04-14] MEDS ORDERED: [UNRECOGNIZED DRUG - OTHER] IV SCH ×7 (21:00)
[2022-04-14] MEDS ORDERED: SODIUM CHLORIDE IV SCH ×7 (21:00)
[2022-04-14] MEDS ORDERED: MVI IV SCH ×7 (21:00)
[2022-04-14] MEDS ORDERED: POTASSIUM CHLORIDE IV SCH ×7 (21:00)
[2022-04-15] VITALS (37 sets, daily range): BP systolic 86–139
[2022-04-15] MEDS: CEFEPIME 2 GM in D5W 100 ML IV SCH (00:03)
[2022-04-15] MEDS: PROPOFOL DRIP 100 ML IV PRN ×3 (01:08→14:29)
[2022-04-15] MEDS: FENTANYL CITRATE-0.9 % NACL/PF 100 ML IV PRN ×3 (01:52→18:30)
[2022-04-15] MEDS: METHYLPREDNISOLONE SOD SUCC 40 MG/ML VIAL IVP SCH ×4 (02:50→21:13)
[2022-04-15] MEDS: METOCLOPRAMIDE HCL 10 MG/2 ML VIAL IVP SCH ×3 (02:50→18:12)
[2022-04-15] MEDS ORDERED: METOCLOPRAMIDE HCL 10 MG/2 ML VIAL ONE (02:51)
[2022-04-15] MEDS: IPRATROPIUM BROM 0.5 MG/2.5 ML VIAL.NEB (ATROVENT) INH SCH ×5 (03:38→23:10)
[2022-04-15] MEDS: INSULIN REGULAR, HUMAN 100 UNITS/ML, 3 ML VIAL (humuLIN R) SUBCUT PRN ×4 (06:23→21:34)
[2022-04-15 06:35] LABS: BASOPHILS % (AUTO) 0.1 % (0.0-2.0); EOSINOPHILS # (AUTO) 0.1 K/uL (0.0-0.4); EOSINOPHILS % (AUTO) 0.3 % (0.0-4.0); HEMOGLOBIN 10.7 g/dL (14.0-18.0); LYMPHOCYTES # (AUTO) 0.3 K/uL (1.0-5.5); LYMPHOCYTES % (AUTO) 1.8 % (20.5-51.5); MEAN CORPUSCULAR HEMOGLOBIN 32 pg (27-31); MEAN CORPUSCULAR HGB CONC 34 % (32-36); MEAN CORPUSCULAR VOLUME 95 fL (79.0-98.0); MONOCYTES # (AUTO) 0.2 K/uL (0.0-1.0); MONOCYTES % (AUTO) 0.9 % (1.7-9.3); NEUTROPHILS # (AUTO) 18.8 K/uL (1.8-7.7); NEUTROPHILS % (AUTO) 96.9 % (40.0-70.0); PLATELET COUNT (AUTO) 181 K/uL (130-430); RED BLOOD CELL COUNT(AUTO) 3.37 MIL/uL (4.2-6.2); RED CELL DISTRIBUTION WIDTH 16.7 % (9.0-15.0); WHITE BLOOD COUNT (AUTO) 19.4 K/uL (4.8-10.8)
[2022-04-15] MEDS: ALBUTEROL SULFATE 0.083% 2.5 MG/3 ML VIAL.NEB INH SCH ×4 (07:05→23:10)
[2022-04-15] MEDS: BUDESONIDE 0.5 MG/2 ML AMPUL.NEB INH SCH ×2 (07:06→19:28)
[2022-04-15 07:08] LABS: INR 1.1 (0.80-1.20); PROTHROMBIN TIME 10.7 SECS (9.5-12.5)
[2022-04-15 07:31] LABS: ALBUMIN 1.8 g/dL (3.4-4.8); CALCIUM 7.6 mg/dL (8.4-11.0); CREATININE 0.68 mg/dL (0.55-1.30); PHOSPHORUS 2.9 mg/dL (2.7-4.5); TOTAL BILIRUBIN 0.6 mg/dL (0.0-1.0)
[2022-04-15] MEDS: PANTOPRAZOLE SODIUM 40 MG/VIAL (PROTONIX) IVP SCH (08:11)
[2022-04-15] MEDS: FUROSEMIDE 20 MG/2 ML VIAL IVP SCH ×2 (08:11→18:12)
[2022-04-15] MEDS: ENOXAPARIN SODIUM 40 MG/0.4 ML SYRINGE SUBCUT SCH (08:11)
--- NOTE | 2022-04-15 08:15 | NUR ---
RT NOTE: 08 Increased FiO2 to 70% at this time. SpO2 improve after change. Addendum: 04/15/22 at 0821 by Adriana Yun RT Amended: Links added.
--- NOTE | 2022-04-15 08:23 | NUR ---
Had charge nurse page as pt's HR has increased to 170s 180s sustained for about 1 minute, attempts to wean levo as well and increase shannon if needed to sustain BP.
[2022-04-15] MEDS: ASPIRIN 81 MG TAB.CHEW GT SCH (08:36)
[2022-04-15] MEDS: SULFAMET 800MG/TMP 160MG, 20 ML UDBTL GT SCH (08:36)
[2022-04-15] MEDS: MEGESTROL ACETATE 400 MG/10 ML UDC GT SCH (08:37)
[2022-04-15] MEDS: LACTOBACILLUS RHAMNOSUS GG 1 CAP CAPSULE GT SCH ×2 (08:37→20:01)
[2022-04-15] MEDS: ASCORBIC ACID 500 MG TABLET GT SCH ×2 (08:38→20:01)
[2022-04-15] MEDS: CHOLECALCIFEROL (VITAMIN D3) 2,000 UNIT TABLET GT SCH ×2 (08:38→20:01)
--- NOTE | 2022-04-15 08:55 | NUR ---
Dr Juarez returned call with orders for EKG, consults to cardiology, orders to stop shannon and keep levo on.
[2022-04-15] MEDS: INSULIN GLARGINE 100 UNITS/ML, 10 ML VIAL SQ SCH ×2 (08:57→21:30)
[2022-04-15] MEDS: FLUCONAZOLE 200 mg/ NS 100 ML IV SCH (08:58)
[2022-04-15] MEDS: D5/0.45 NS 1,000 ML IV SCH (08:59)
--- NOTE | 2022-04-15 09:20 | NUR ---
Dr. Coleman @ bedside
--- NOTE | 2022-04-15 09:45 | NUR ---
Dr. Juarez @ bedside
[2022-04-15] MEDS ORDERED: LORazepam 2 MG/ML VIAL IVP PRN (10:00)
[2022-04-15] MEDS ORDERED: ALBUMIN HUMAN 25% 200 ML IV ONE (10:15)
[2022-04-15 10:34] LABS: WHITE BLOOD COUNT (AUTO) 18.5 K/uL (4.8-10.8)
[2022-04-15 10:41] LABS: HEMATOCRIT 34.5 % (36-54); HEMOGLOBIN 11.2 g/dL (14.0-18.0); MEAN CORPUSCULAR HEMOGLOBIN 32 pg (27-31); MEAN CORPUSCULAR HGB CONC 32 % (32-36); MEAN CORPUSCULAR VOLUME 98 fL (79.0-98.0); PLATELET COUNT (AUTO) 175 K/uL (130-430); RED BLOOD CELL COUNT(AUTO) 3.53 MIL/uL (4.2-6.2)
--- NOTE | 2022-04-15 11:10 | NUR ---
Handoff to Genaro DOVE
--- NOTE | 2022-04-15 11:59 | NUR ---
PAGED MD TANO HARDY, CT SURGEON PER MD ALVAREZ REQUEST TO MAKE SURE MD IS COMING TO ASSESS PATIENT. PER MD Modesto HARDY, WILL COME TO SEE PATIENT LATER TODAY.
[2022-04-15] MEDS: 0.45% NACL 1,000 ML IV SCH (12:28)
[2022-04-15] MEDS: PIPERACILLIN/TAZO 4.5GM/DEX-IS 100 ML IV SCH ×2 (12:40→21:13)
--- NOTE | 2022-04-15 12:46 | NUR ---
MD TANO HARDY, CT SURGEON HERE FOR ASSESS AND CONSULT.
--- NOTE | 2022-04-15 13:02 | NUR ---
RT NOTE: 1302 Decreased FiO2 to 60%. SpO2 is between 93-95%. Will titrate as tolerated. Addendum: 04/15/22 at 1305 by Adriana Yun RT Amended: Links added.
[2022-04-15 13:07] LABS: BAND % (MANUAL) 3 % (0-6); BASOPHILS % (MANUAL) 0 % (0-2); EOSINOPHILS % (MANUAL) 0 % (0-7); LYMPHOCYTES % (MANUAL) 4 % (20-46); MONOCYTES % (MANUAL) 7 % (0-11)
--- NOTE | 2022-04-15 14:07 | NUR ---
Spoke w/ Dr Coffman-thoracic surgeon. He stated lung BX cannot be done at [facility]. He will speak w/ a colleague at [facility] in [place] and request he accept the patient for transfer. He will be in contact with me. I spoke to Dr Juarez regarding possible transfer for the lung biopsy.
[2022-04-15] MEDS: SULFAMETHOXAZOLE /TRIMETHOPRIM 20 ML in D5W 500 ML IV SCH ×2 (14:15→23:00)
--- NOTE | 2022-04-15 14:30 | NUR ---
Nutrition F/U RD reviewed pts current EMR including diet hx, physician notes, nursing notes, pertinent labs/meds/procedures, care trends and care activity. Short note d/t high workload Subjective Information: RD and grad intern attended ICU rounds earlier today. Primary RN reported that pt will be assessed by cardiology and thoracic surgeon d/t pneumomediastinum and abnormal HR, respectively. She also reported that OGT/NGT was unable to successfully be placed d/t coiling, therefore, pt has been on TPN. RN stated pt has no skin breakdown, and possibility of trach/PEG if family consents. RD spoke w/ pharmD to relay rec for TPN (same as previous goal rate when pt was on TPN). Pt is not yet meeting optimal nutritional needs. Current Diet Order/Nutrition Support: Glucerna 1.5 at 50 ml/hr, Free Water Flush: 150 Q4 via OGT x3 days (pt is not receiving any EN support) & TPN D30%, AA10% at 42.75 ml/hr via central line % PO intake: NPO Last BM: x2 2 Estimated Energy Expenditure (kcals/day) 1812 kcal (PSU 2003: vent/ ICU. MSJ 1445, Tmax 36.77, Ve 16) Estimated Protein Required (g/day) 80-101 (1.2-1.5 g/kg CBW (67 kg) d/t critically ill) Estimated Fluid Required (l/day) 1.8L (1 ml/kcal/day for GERIAT maintenance) Problem/Etiology/Signs/Symptoms * Suboptimal EN support R/T risk for overfeeding AEB current TF prescription exceeds 160% of estimated caloric needs and meets 161% of upper end of estimated protein needs. *Resolved * Suboptimal nutrient intakes R/T decreased appetite, labored breathing AEB documented decreased PO intake. *N/A * Inadequate TPN support R/T metabolic demands AEB estimated nutritional requirements for respiratory failure/critical illness. *Ongoing Expected Outcomes/Goals PO intake provides >85% estimated nutrient needs, nutrition-related labs trending WNL, continued skin integrity, BM q1-3 days Dietitian Recommendations * Clarify NPO order and D/C TF order * TPN D30%, AA10% at 70 ml/hr (goal rate), IL20% at 10 ml/hr via central line Provides: 1673 kcal/day, 84 gm protein/day, 1920 ml total volume/day, and GIR: 2.6 mg CHO/kg/min Meets: 92% of est kcal needs, 105% of lower end of est PRO needs, and 107 % of est fluid needs * If extubated, please contact RD to re-assess nutritional needs * Consider D/C NS at 50 ml/hr if/when pt reaches TPN goal rate * Consider modification of insulin regimen for improved glycemic control Follow up High Risk: RD to F/U within 2-3 days
--- NOTE | 2022-04-15 14:35 | NUR ---
Dietitian Recommendations * Clarify NPO order and D/C TF order * TPN D30%, AA10% at 70 ml/hr (goal rate), IL20% at 10 ml/hr via central line Provides: 1673 kcal/day, 84 gm protein/day, 1920 ml total volume/day, and GIR: 2.6 mg CHO/kg/min Meets: 92% of est kcal needs, 105% of lower end of est PRO needs, and 107 % of est fluid needs * If extubated, please contact RD to re-assess nutritional needs * Consider D/C NS at 50 ml/hr if/when pt reaches TPN goal rate * Consider modification of insulin regimen for improved glycemic control LP, MS, RD Please refer to Nutrition F/U for details.
--- NOTE | 2022-04-15 15:10 | NUR ---
VIA TELEPHONE PER MAHI PICHARDO TO TRANSFER PT WITH CCT TO HIGHER LEVEL OF CARE FOR LUNG BIOPSY AND TRACHEOSTOMY DONE BY MD TANO HARDY FROM CT SURGERY WHEN BED AVAILABLE. EVERETTE THAYER SPOKE TO MD Daniela HARDY AND MD ALVAREZ, MD Daniela HARDY TO CONTACT ICU AND/OR CM EVERETTE WHEN ACCEPTING DOCTOR AVAILABLE SO MD ALVAREZ AND ACCEPTING MD MAY SPEAK FOR MD TO MD REPORT.
[2022-04-15] MEDS: PHENYLEPHRINE HCL 100 MG in NS 240 ML IV PRN (18:28)
[2022-04-15] MEDS: ATORVASTATIN 20 MG TABLET GT SCH (20:01)
[2022-04-15] MEDS ORDERED: [UNRECOGNIZED DRUG - OTHER] IV SCH ×8 (21:00)
[2022-04-15] MEDS ORDERED: SODIUM CHLORIDE IV SCH ×8 (21:00)
[2022-04-15] MEDS ORDERED: POTASSIUM CHLORIDE IV SCH ×8 (21:00)
[2022-04-15] MEDS ORDERED: TPN CENTRAL IV SCH ×8 (21:00)
[2022-04-15] MEDS ORDERED: MVI IV SCH ×8 (21:00)
[2022-04-16] VITALS (32 sets, daily range): BP systolic 89–130
[2022-04-16] MEDS: FENTANYL CITRATE-0.9 % NACL/PF 100 ML IV PRN ×4 (01:53→23:40)
[2022-04-16] MEDS: ALBUTEROL SULFATE 0.083% 2.5 MG/3 ML VIAL.NEB INH SCH ×6 (03:06→23:21)
[2022-04-16] MEDS: IPRATROPIUM BROM 0.5 MG/2.5 ML VIAL.NEB (ATROVENT) INH SCH ×6 (03:07→23:22)
[2022-04-16] MEDS: METHYLPREDNISOLONE SOD SUCC 40 MG/ML VIAL IVP SCH ×4 (04:13→21:27)
[2022-04-16] MEDS: METOCLOPRAMIDE HCL 10 MG/2 ML VIAL IVP SCH ×3 (04:13→18:01)
[2022-04-16] MEDS: PIPERACILLIN/TAZO 4.5GM/DEX-IS 100 ML IV SCH ×3 (06:29→21:27)
[2022-04-16] MEDS: INSULIN REGULAR, HUMAN 100 UNITS/ML, 3 ML VIAL (humuLIN R) SUBCUT PRN ×5 (06:30→21:30)
[2022-04-16 07:13] LABS: BASOPHILS % (AUTO) 0.1 % (0.0-2.0); HEMATOCRIT 27.3 % (36-54); HEMOGLOBIN 8.8 g/dL (14.0-18.0); LYMPHOCYTES # (AUTO) 0.3 K/uL (1.0-5.5); LYMPHOCYTES % (AUTO) 2.1 % (20.5-51.5); MEAN CORPUSCULAR HEMOGLOBIN 32 pg (27-31); MEAN CORPUSCULAR HGB CONC 32 % (32-36); MEAN CORPUSCULAR VOLUME 98 fL (79.0-98.0); MONOCYTES # (AUTO) 0.3 K/uL (0.0-1.0); MONOCYTES % (AUTO) 2.1 % (1.7-9.3); NEUTROPHILS # (AUTO) 15.8 K/uL (1.8-7.7); NEUTROPHILS % (AUTO) 95.7 % (40.0-70.0); PLATELET COUNT (AUTO) 152 K/uL (130-430); RED BLOOD CELL COUNT(AUTO) 2.79 MIL/uL (4.2-6.2); RED CELL DISTRIBUTION WIDTH 17.1 % (9.0-15.0); WHITE BLOOD COUNT (AUTO) 16.6 K/uL (4.8-10.8)
[2022-04-16] MEDS: BUDESONIDE 0.5 MG/2 ML AMPUL.NEB INH SCH ×2 (07:32→20:03)
[2022-04-16] MEDS: SULFAMETHOXAZOLE /TRIMETHOPRIM 20 ML in D5W 500 ML IV SCH ×3 (07:53→23:45)
[2022-04-16] MEDS: LACTOBACILLUS RHAMNOSUS GG 1 CAP CAPSULE GT SCH ×2 (07:54→21:00)
[2022-04-16] MEDS: ASCORBIC ACID 500 MG TABLET GT SCH ×2 (07:54→21:00)
[2022-04-16] MEDS: ASPIRIN 81 MG TAB.CHEW GT SCH (07:54)
[2022-04-16] MEDS: CHOLECALCIFEROL (VITAMIN D3) 2,000 UNIT TABLET GT SCH ×2 (07:54→21:00)
[2022-04-16] MEDS: MEGESTROL ACETATE 400 MG/10 ML UDC GT SCH (07:54)
[2022-04-16] MEDS: ENOXAPARIN SODIUM 40 MG/0.4 ML SYRINGE SUBCUT SCH (08:13)
[2022-04-16] MEDS: PANTOPRAZOLE SODIUM 40 MG/VIAL (PROTONIX) IVP SCH (08:14)
[2022-04-16] MEDS: FUROSEMIDE 20 MG/2 ML VIAL IVP SCH ×2 (08:14→18:01)
[2022-04-16] MEDS: FLUCONAZOLE 200 mg/ NS 100 ML IV SCH (08:16)
[2022-04-16] MEDS: 0.45% NACL 1,000 ML IV SCH (08:16)
[2022-04-16] MEDS: INSULIN GLARGINE 100 UNITS/ML, 10 ML VIAL SQ SCH (08:21)
--- NOTE | 2022-04-16 09:00 | NUR ---
RT NOTES FIO2 TO 0.95 per ABG result, while awaiting for new order.
--- NOTE | 2022-04-16 09:06 | NUR ---
SPOKE WITH ALIYAH REQUESTING ORDERS FROM DR. JACOBSEN.
--- NOTE | 2022-04-16 09:11 | NUR ---
CALLED TARUN KNAPP FOR NEW ABG RESULTS. NEW ORDERS RECEIVED FOR VENT SETTING CHANGES. AC 22, VT500, FIO2@100% AND TITRATE TOLERATED, PEEP OF 3. REPEAT ABG @ 1200 TODAY. PT VSS. NAD NOTED. VENT CHANGES REPORTED TO RT JUAN.
--- NOTE | 2022-04-16 09:15 | NUR ---
RT NOTES Per order, vent to AC 22 500 100% PEEP 3. PIP increased to high 50s, Rn recommended to take peep off, PIP decreased to low 40s. Will monitor pt
[2022-04-16] MEDS: PROPOFOL DRIP 100 ML IV PRN ×3 (09:48→23:38)
--- NOTE | 2022-04-16 11:10 | NUR ---
RT NOTES Dr Stanford rounding, aware that PEEP was not applied due to PIP in the 50s-60s with it on, its currently in the 40s. Dr stated to make sure that it is charted, which its been. Ordered to switch vent back to PC and draw abg 2 hours post change.
--- NOTE | 2022-04-16 11:15 | NUR ---
RT NOTES Per order, vent to PC 35 RR 24 PEEP 3, once PEEP was applied, PIP went up, exh Vt decreased. Took PEEP off. PIP < 40 Vt low to mid 400s.
--- NOTE | 2022-04-16 13:39 | NUR ---
RT NOTES FIO2 TO 0.80 per ABG result while awaiting new orders. RN notified.
--- NOTE | 2022-04-16 13:50 | NUR ---
SPOKE WITH ALIYAH REQUESTING ORDERS FROM DR. JACOBSEN.
--- NOTE | 2022-04-16 13:56 | NUR ---
FÁTIMA JACOBSEN WITH NEW ABG RESULTS. pH IMPROVING WELL CO2. PO2@129, OK TO TITRATE PT DOWN ON FIO2 TO 80% AND LOWER TOLERATED. NO NEW ORDERS RECEIVED.
[2022-04-16 14:51] LABS: ALBUMIN 2.9 g/dL (3.4-4.8); CALCIUM 7.2 mg/dL (8.4-11.0); CREATININE 0.7 mg/dL (0.55-1.30); PHOSPHORUS 2.6 mg/dL (2.7-4.5); TOTAL BILIRUBIN 0.5 mg/dL (0.0-1.0)
[2022-04-16] MEDS ORDERED: K PHOS 15 MM in NS 250 ML IV ONE (17:00)
[2022-04-16] MEDS: LR 1,000 ML IV SCH (17:24)
[2022-04-16] MEDS ORDERED: POTASSIUM CHLORIDE IV SCH ×8 (21:00)
[2022-04-16] MEDS ORDERED: [UNRECOGNIZED DRUG - OTHER] IV SCH ×8 (21:00)
[2022-04-16] MEDS ORDERED: TPN CENTRAL IV SCH ×8 (21:00)
[2022-04-16] MEDS ORDERED: MVI IV SCH ×8 (21:00)
[2022-04-16] MEDS: ATORVASTATIN 20 MG TABLET GT SCH (21:00)
[2022-04-16] MEDS ORDERED: SODIUM CHLORIDE IV SCH ×8 (21:00)
[2022-04-17] VITALS (34 sets, daily range): BP systolic 83–126
[2022-04-17] MEDS: METHYLPREDNISOLONE SOD SUCC 40 MG/ML VIAL IVP SCH ×4 (03:20→20:53)
[2022-04-17] MEDS: METOCLOPRAMIDE HCL 10 MG/2 ML VIAL IVP SCH ×3 (03:21→18:31)
[2022-04-17] MEDS: ALBUTEROL SULFATE 0.083% 2.5 MG/3 ML VIAL.NEB INH SCH ×4 (03:44→15:10)
[2022-04-17] MEDS: IPRATROPIUM BROM 0.5 MG/2.5 ML VIAL.NEB (ATROVENT) INH SCH ×4 (03:44→15:10)
[2022-04-17] MEDS: PIPERACILLIN/TAZO 4.5GM/DEX-IS 100 ML IV SCH ×3 (06:44→21:30)
[2022-04-17] MEDS: BUDESONIDE 0.5 MG/2 ML AMPUL.NEB INH SCH (07:07)
[2022-04-17] MEDS: FENTANYL CITRATE-0.9 % NACL/PF 100 ML IV PRN ×3 (07:35→23:55)
[2022-04-17] MEDS: SULFAMETHOXAZOLE /TRIMETHOPRIM 20 ML in D5W 500 ML IV SCH ×3 (07:41→22:17)
--- NOTE | 2022-04-17 07:50 | NUR ---
RT NOTES Attempted to titrate FIO2 to 0.65, sat went down to 91-92%, switched back to 0.70.
[2022-04-17] MEDS: ASCORBIC ACID 500 MG TABLET GT SCH ×2 (08:11→20:54)
[2022-04-17] MEDS: CHOLECALCIFEROL (VITAMIN D3) 2,000 UNIT TABLET GT SCH ×2 (08:11→20:53)
[2022-04-17] MEDS: LACTOBACILLUS RHAMNOSUS GG 1 CAP CAPSULE GT SCH ×2 (08:11→20:52)
[2022-04-17] MEDS: ASPIRIN 81 MG TAB.CHEW GT SCH (08:11)
[2022-04-17] MEDS: FUROSEMIDE 20 MG/2 ML VIAL IVP SCH ×2 (08:16→18:29)
[2022-04-17] MEDS: ENOXAPARIN SODIUM 40 MG/0.4 ML SYRINGE SUBCUT SCH (08:17)
[2022-04-17] MEDS: PANTOPRAZOLE SODIUM 40 MG/VIAL (PROTONIX) IVP SCH (08:17)
[2022-04-17] MEDS: INSULIN GLARGINE 100 UNITS/ML, 10 ML VIAL SQ SCH (08:23)
[2022-04-17] MEDS: FLUCONAZOLE 200 mg/ NS 100 ML IV SCH (09:54)
[2022-04-17] MEDS: PROPOFOL DRIP 100 ML IV PRN ×2 (09:56→16:05)
--- NOTE | 2022-04-17 10:00 | NUR ---
REPORTED NEW ABG RESULTS TO MD JACOBSEN. PER MD, INCREASE FIO2 TO 75%, NO OTHER CHANGES OR NEW ORDERS. RT MARTINEZ MADE AWARE.
[2022-04-17 10:09] LABS: BASOPHILS % (AUTO) 0.1 % (0.0-2.0); HEMATOCRIT 25.2 % (36-54); HEMOGLOBIN 8.4 g/dL (14.0-18.0); LYMPHOCYTES # (AUTO) 0.3 K/uL (1.0-5.5); LYMPHOCYTES % (AUTO) 2.6 % (20.5-51.5); MEAN CORPUSCULAR HEMOGLOBIN 33 pg (27-31); MEAN CORPUSCULAR HGB CONC 33 % (32-36); MEAN CORPUSCULAR VOLUME 98 fL (79.0-98.0); MONOCYTES # (AUTO) 0.1 K/uL (0.0-1.0); MONOCYTES % (AUTO) 0.5 % (1.7-9.3); NEUTROPHILS # (AUTO) 11.2 K/uL (1.8-7.7); NEUTROPHILS % (AUTO) 96.8 % (40.0-70.0); PLATELET COUNT (AUTO) 103 K/uL (130-430); RED BLOOD CELL COUNT(AUTO) 2.58 MIL/uL (4.2-6.2); RED CELL DISTRIBUTION WIDTH 17.2 % (9.0-15.0); WHITE BLOOD COUNT (AUTO) 11.6 K/uL (4.8-10.8)
--- NOTE | 2022-04-17 10:10 | NUR ---
SPOKE WITH RANDI AT [employer] REQUESTING ORDERS FROM DR. JACOBSEN REGARDING ABG RESULTS.
[2022-04-17] MEDS: INSULIN REGULAR, HUMAN 100 UNITS/ML, 3 ML VIAL (humuLIN R) SUBCUT PRN ×4 (10:19→22:32)
[2022-04-17 10:21] LABS: ALBUMIN 2.2 g/dL (3.4-4.8); CREATININE 0.96 mg/dL (0.55-1.30); PHOSPHORUS 1.9 mg/dL (2.7-4.5); TOTAL BILIRUBIN 0.5 mg/dL (0.0-1.0)
--- NOTE | 2022-04-17 11:15 | NUR ---
RT NOTES Per RN, only order from Dr Stanford per ABG result is to increase FIO2 to 0.75 which RN carried out.
[2022-04-17] MEDS: LR 1,000 ML IV SCH (13:00)
--- NOTE | 2022-04-17 17:19 | NUR ---
RT NOTES FIO2 to 0.80 per low sat, improved to 92%. RN notified.
[2022-04-17] MEDS ORDERED: K PHOS 30 MM in NS 250 ML IV ONE (18:00)
[2022-04-17] MEDS ORDERED: CALCIUM CHLORIDE 1 GM in NS 100 ML IV ONE (18:15)
[2022-04-17 18:19] LABS: CALCIUM 6.4 mg/dL (8.4-11.0)
[2022-04-17] MEDS: PHENYLEPHRINE HCL 100 MG in NS 240 ML IV PRN (18:46)
[2022-04-17] MEDS: ATORVASTATIN 20 MG TABLET GT SCH (20:53)
[2022-04-17] MEDS ORDERED: [UNRECOGNIZED DRUG - OTHER] IV SCH ×9 (21:00)
[2022-04-17] MEDS ORDERED: TPN CENTRAL IV SCH ×9 (21:00)
[2022-04-17] MEDS ORDERED: SODIUM CHLORIDE IV SCH ×9 (21:00)
[2022-04-17] MEDS ORDERED: MVI IV SCH ×9 (21:00)
[2022-04-17] MEDS ORDERED: POTASSIUM CHLORIDE IV SCH ×9 (21:00)
[2022-04-18] VITALS (30 sets, daily range): BP systolic 96–159
[2022-04-18] MEDS: METHYLPREDNISOLONE SOD SUCC 40 MG/ML VIAL IVP SCH ×4 (02:43→21:19)
[2022-04-18] MEDS: PROPOFOL DRIP 100 ML IV PRN ×4 (02:43→20:47)
[2022-04-18] MEDS: METOCLOPRAMIDE HCL 10 MG/2 ML VIAL IVP SCH ×3 (02:43→18:32)
[2022-04-18] MEDS: INSULIN REGULAR, HUMAN 100 UNITS/ML, 3 ML VIAL (humuLIN R) SUBCUT PRN ×3 (02:45→18:29)
[2022-04-18] MEDS: SULFAMETHOXAZOLE /TRIMETHOPRIM 20 ML in D5W 500 ML IV SCH ×2 (05:55→17:07)
[2022-04-18] MEDS: PIPERACILLIN/TAZO 4.5GM/DEX-IS 100 ML IV SCH ×3 (05:55→21:20)
[2022-04-18] MEDS ORDERED: CALCIUM CHLORIDE 1 GM in NS 100 ML IV ONE (06:45)
[2022-04-18] MEDS ORDERED: K PHOS 30 MM in NS 250 ML IV ONE (06:45)
[2022-04-18 06:58] LABS: BASOPHILS % (AUTO) 0.2 % (0.0-2.0); HEMATOCRIT 28.9 % (36-54); HEMOGLOBIN 9.4 g/dL (14.0-18.0); LYMPHOCYTES # (AUTO) 0.3 K/uL (1.0-5.5); LYMPHOCYTES % (AUTO) 1.6 % (20.5-51.5); MEAN CORPUSCULAR HEMOGLOBIN 32 pg (27-31); MEAN CORPUSCULAR HGB CONC 33 % (32-36); MEAN CORPUSCULAR VOLUME 98 fL (79.0-98.0); MONOCYTES # (AUTO) 0.4 K/uL (0.0-1.0); MONOCYTES % (AUTO) 2.1 % (1.7-9.3); NEUTROPHILS % (AUTO) 96.1 % (40.0-70.0); PLATELET COUNT (AUTO) 148 K/uL (130-430); RED BLOOD CELL COUNT(AUTO) 2.96 MIL/uL (4.2-6.2); RED CELL DISTRIBUTION WIDTH 17.9 % (9.0-15.0); WHITE BLOOD COUNT (AUTO) 18.7 K/uL (4.8-10.8)
[2022-04-18] MEDS: BUDESONIDE 0.5 MG/2 ML AMPUL.NEB INH SCH ×2 (07:48→19:07)
[2022-04-18] MEDS: ALBUTEROL SULFATE 0.083% 2.5 MG/3 ML VIAL.NEB INH SCH ×5 (07:48→23:12)
[2022-04-18] MEDS: IPRATROPIUM BROM 0.5 MG/2.5 ML VIAL.NEB (ATROVENT) INH SCH ×5 (07:48→23:12)
[2022-04-18 07:51] LABS: ALBUMIN 2.1 g/dL (3.4-4.8); CREATININE 1.05 mg/dL (0.55-1.30); PHOSPHORUS 1.8 mg/dL (2.7-4.5); TOTAL BILIRUBIN 0.5 mg/dL (0.0-1.0)
[2022-04-18 08:07] LABS: CALCIUM 6.4 mg/dL (8.4-11.0)
[2022-04-18] MEDS: ASCORBIC ACID 500 MG TABLET GT SCH ×2 (09:00→20:35)
[2022-04-18] MEDS: LR 1,000 ML IV SCH (09:00)
[2022-04-18] MEDS: LACTOBACILLUS RHAMNOSUS GG 1 CAP CAPSULE GT SCH ×2 (09:00→20:35)
[2022-04-18] MEDS: ASPIRIN 81 MG TAB.CHEW GT SCH (09:00)
[2022-04-18] MEDS: CHOLECALCIFEROL (VITAMIN D3) 2,000 UNIT TABLET GT SCH ×2 (09:00→20:36)
--- NOTE | 2022-04-18 09:41 | NUR ---
Nutrition F/U RD reviewed pts current EMR including diet hx, physician notes, nursing notes, pertinent labs/meds/procedures, care trends and care activity. Short note d/t high workload Subjective Information: RD attended ICU rounds and s/w RN about pt. RN reports that he has some type of fibrosis and needs to be transferred for a lung biopsy because those aren't performed here. RN states pt likely needs trach and peg. RD witnesses Vetot 11. 8 and propofol running @ 16.41mL/hr (provides 433 kcal) and TPN running at 50 mL/hr. Current Diet Order/Nutrition Support: Glucerna 1.5 at 50 ml/hr, Free Water Flush: 150 Q4 via OGT x 6 days (pt is not receiving any EN support) & TPN D30%, AA10% at 50 ml/hr via central line Provides (w/ prop):1285 kcal, 60 g PRO, total volume 1200 mL; GIR 1.8 Meets: 71% est kcal, 75% lower est PRO, 67% est fluid needs % PO intake: NPO Last BM: x2 04/10 (8 days ago) Estimated Energy Expenditure (kcals/day) 1812 kcal (PSU 2003: vent/ ICU. MSJ 1445, Tmax 36.77, Ve 16) Estimated Protein Required (g/day) 80-101 (1.2-1.5 g/kg CBW (67 kg) d/t critically ill) Estimated Fluid Required (l/day) 1.8L (1 ml/kcal/day for GERIAT maintenance) Problem/Etiology/Signs/Symptoms * Suboptimal EN support R/T risk for overfeeding AEB current TF prescription exceeds 160% of estimated caloric needs and meets 161% of upper end of estimated protein needs. *Resolved * Suboptimal nutrient intakes R/T decreased appetite, labored breathing AEB documented decreased PO intake. *N/A * Inadequate TPN support R/T metabolic demands AEB estimated nutritional requirements for respiratory failure/critical illness. *Ongoing NEW Expected Outcomes/Goals EN tolerated at goal rate, EN provides >95% estimated nutritional needs, improvements in skin integrity, nutrition-related labs trending WNL, weight maintenance, BM q 1-3 days Dietitian Recommendations * Clarify NPO order and D/C TF order * TPN D30%, AA10% at 70 ml/hr (goal rate), IL20% at 10 ml/hr via central line Provides: 1673 kcal/day, 84 gm protein/day, 1920 ml total volume/day, and GIR: 2.6 mg CHO/kg/min Meets: 92% of est kcal needs, 105% of lower end of est PRO needs, and 107 % of est fluid needs * If extubated, please contact RD to re-assess nutritional needs * Consider bowel regimen, pt has no documented BM in 8 days * Consider modification of insulin regimen for improved glycemic control Follow up High Risk: RD to F/U within 2-3 days GS, MPH, RD
--- NOTE | 2022-04-18 09:44 | NUR ---
Dietitian Recommendations * Clarify NPO order and D/C TF order * TPN D30%, AA10% at 70 ml/hr (goal rate), IL20% at 10 ml/hr via central line Provides: 1673 kcal/day, 84 gm protein/day, 1920 ml total volume/day, and GIR: 2.6 mg CHO/kg/min Meets: 92% of est kcal needs, 105% of lower end of est PRO needs, and 107 % of est fluid needs * If extubated, please contact RD to re-assess nutritional needs * Consider bowel regimen, pt has no documented BM in 8 days * Consider modification of insulin regimen for improved glycemic control GS, MPH, RD Please refer to Nutrition F/U for further details. Thanks!
[2022-04-18] MEDS: FENTANYL CITRATE-0.9 % NACL/PF 100 ML IV PRN ×2 (10:09→17:02)
[2022-04-18] MEDS: ALBUMIN HUMAN 25% 50 ML IV SCH ×3 (10:21→21:19)
[2022-04-18] MEDS: ENOXAPARIN SODIUM 40 MG/0.4 ML SYRINGE SUBCUT SCH (10:21)
[2022-04-18] MEDS: FUROSEMIDE 20 MG/2 ML VIAL IVP SCH ×2 (10:23→17:36)
[2022-04-18] MEDS: FLUCONAZOLE 200 mg/ NS 100 ML IV SCH (10:24)
[2022-04-18] MEDS: INSULIN GLARGINE 100 UNITS/ML, 10 ML VIAL SQ SCH (10:32)
[2022-04-18] MEDS: PANTOPRAZOLE SODIUM 40 MG/VIAL (PROTONIX) IVP SCH (11:31)
--- NOTE | 2022-04-18 12:43 | NUR ---
PICC line suddenly occluded on one port. TPN and main IVF stopped. Call out to Dr. Juarez for activase order
[2022-04-18] MEDS ORDERED: ALTEPLASE 2 MG VIAL MC ONE (13:00)
--- NOTE | 2022-04-18 13:05 | NUR ---
Attempted to instill cathflo to occluded port of PICC line. USGPIV started Right upper arm.
--- NOTE | 2022-04-18 15:25 | NUR ---
rt notes 1525 RN Val titrated fio2 to 70%, per MD Juarez order.
[2022-04-18] MEDS ORDERED: COMMUNICATION ORDER XX ONE (15:45)
--- NOTE | 2022-04-18 16:04 | NUR ---
PICC line nurse here to replace PICC line in the Right arm.
[2022-04-18 16:22] LABS: PHOSPHORUS 3.2 mg/dL (2.7-4.5)
--- NOTE | 2022-04-18 17:15 | NUR ---
rt notes 1715 Pt back to 80% fio2, RN tried to put PICC line, pt was laid flat, pt desaturated.
[2022-04-18 19:07] LABS: ALBUMIN 2.3 g/dL (3.4-4.8); CREATININE 0.86 mg/dL (0.55-1.30); TOTAL BILIRUBIN 0.5 mg/dL (0.0-1.0)
[2022-04-18 19:12] LABS: CALCIUM 6.5 mg/dL (8.4-11.0)
--- NOTE | 2022-04-18 19:15 | NUR ---
Report given to oncoming nurse to assume care of the patient.
[2022-04-18] MEDS: ATORVASTATIN 20 MG TABLET GT SCH (20:35)
[2022-04-18] MEDS ORDERED: SODIUM CHLORIDE IV SCH ×10 (21:00)
[2022-04-18] MEDS ORDERED: [UNRECOGNIZED DRUG - OTHER] IV SCH ×10 (21:00)
[2022-04-18] MEDS ORDERED: TPN CENTRAL IV SCH ×10 (21:00)
[2022-04-18] MEDS ORDERED: POTASSIUM CHLORIDE IV SCH ×10 (21:00)
[2022-04-19] VITALS (29 sets, daily range): BP systolic 109–169
[2022-04-19] MEDS: SULFAMETHOXAZOLE /TRIMETHOPRIM 20 ML in D5W 500 ML IV SCH ×4 (00:23→22:17)
[2022-04-19] MEDS: PROPOFOL DRIP 100 ML IV PRN ×4 (01:05→18:23)
[2022-04-19] MEDS: METOCLOPRAMIDE HCL 10 MG/2 ML VIAL IVP SCH ×3 (02:30→17:11)
[2022-04-19] MEDS: IPRATROPIUM BROM 0.5 MG/2.5 ML VIAL.NEB (ATROVENT) INH SCH ×6 (03:05→23:17)
[2022-04-19] MEDS: ALBUTEROL SULFATE 0.083% 2.5 MG/3 ML VIAL.NEB INH SCH ×6 (03:05→23:16)
[2022-04-19] MEDS: METHYLPREDNISOLONE SOD SUCC 40 MG/ML VIAL IVP SCH ×4 (04:02→21:38)
[2022-04-19] MEDS: LR 1,000 ML IV SCH (04:02)
[2022-04-19] MEDS: PIPERACILLIN/TAZO 4.5GM/DEX-IS 100 ML IV SCH ×3 (05:16→21:38)
[2022-04-19] MEDS: INSULIN REGULAR, HUMAN 100 UNITS/ML, 3 ML VIAL (humuLIN R) SUBCUT PRN ×3 (05:33→17:34)
[2022-04-19 07:06] LABS: HEMATOCRIT 23.8 % (36-54); HEMOGLOBIN 7.9 g/dL (14.0-18.0); MEAN CORPUSCULAR HEMOGLOBIN 32 pg (27-31); MEAN CORPUSCULAR HGB CONC 33 % (32-36); MEAN CORPUSCULAR VOLUME 97 fL (79.0-98.0); PLATELET COUNT (AUTO) 122 K/uL (130-430); RED BLOOD CELL COUNT(AUTO) 2.46 MIL/uL (4.2-6.2); RED CELL DISTRIBUTION WIDTH 18.1 % (9.0-15.0); WHITE BLOOD COUNT (AUTO) 14.7 K/uL (4.8-10.8)
--- NOTE | 2022-04-19 07:15 | NUR ---
Opening Received report on pt. Pt intubated and sedate with diprivan and fentanyl drips. Pt in no acute distress. ST on monitor, HR 120s. Pt also noted with temp 101, started cooling measures. Pt on IVF, TPN, neosynephrine off this morning around 0530 per report. Mason draining urine to gravity.
[2022-04-19] MEDS: BUDESONIDE 0.5 MG/2 ML AMPUL.NEB INH SCH ×2 (07:16→19:53)
[2022-04-19] MEDS: FLUCONAZOLE 200 mg/ NS 100 ML IV SCH (08:17)
[2022-04-19 08:18] LABS: ALBUMIN 2.8 g/dL (3.4-4.8); CREATININE 1.01 mg/dL (0.55-1.30); PHOSPHORUS 1.9 mg/dL (2.7-4.5); TOTAL BILIRUBIN 0.6 mg/dL (0.0-1.0)
[2022-04-19] MEDS: ENOXAPARIN SODIUM 40 MG/0.4 ML SYRINGE SUBCUT SCH (08:18)
[2022-04-19] MEDS: INSULIN GLARGINE 100 UNITS/ML, 10 ML VIAL SQ SCH (08:22)
[2022-04-19] MEDS: ASPIRIN 81 MG TAB.CHEW GT SCH (08:23)
[2022-04-19] MEDS: LACTOBACILLUS RHAMNOSUS GG 1 CAP CAPSULE GT SCH ×2 (08:23→19:11)
[2022-04-19] MEDS: ASCORBIC ACID 500 MG TABLET GT SCH ×2 (08:23→19:12)
[2022-04-19] MEDS: CHOLECALCIFEROL (VITAMIN D3) 2,000 UNIT TABLET GT SCH ×2 (08:23→19:12)
[2022-04-19] MEDS: PANTOPRAZOLE SODIUM 40 MG/VIAL (PROTONIX) IVP SCH (08:24)
[2022-04-19] MEDS: FUROSEMIDE 20 MG/2 ML VIAL IVP SCH ×2 (08:25→17:07)
[2022-04-19 08:29] LABS: CALCIUM 6.8 mg/dL (8.4-11.0)
[2022-04-19] MEDS: FENTANYL CITRATE-0.9 % NACL/PF 100 ML IV PRN ×2 (08:32→17:10)
--- NOTE | 2022-04-19 11:15 | NUR ---
CALLED DR. ALVAREZ SERVICE WAITING ON A CALL BACK
[2022-04-19] MEDS ORDERED: K PHOS 15 MM in NS 250 ML IV ONE (11:30)
[2022-04-19] MEDS ORDERED: ACETAMINOPHEN 650 MG SUPP.RECT RC PRN (11:30)
--- NOTE | 2022-04-19 11:30 | NUR ---
Dr. Juarez return call to unit, informed regarding pt critical labs, fever, and status. New orders made for K Phos 15mmol rider, ativan prn, and tylenol prn.
--- NOTE | 2022-04-19 11:35 | NUR ---
HIGH ALERT NOTE: Called Dr. Juarez back identified within the medical roster to verify physician authenticity.
[2022-04-19] MEDS ORDERED: ACETAMINOPHEN 325 MG TABLET PO PRN (11:45)
[2022-04-19 14:13] LABS: BAND % (MANUAL) 6 % (0-6); BASOPHILS % (MANUAL) 0 % (0-2); EOSINOPHILS % (MANUAL) 0 % (0-7); LYMPHOCYTES % (MANUAL) 3 % (20-46); METAMYELOCYTES % 2 % (0-0); MONOCYTES % (MANUAL) 2 % (0-11)
[2022-04-19] MEDS ORDERED: CALCIUM GLUCONATE 1 GM in NS 100 ML IV ONE (18:00)
--- NOTE | 2022-04-19 18:00 | NUR ---
PER MD ALVAREZ, PULL BACK PICC LINE TO JENNIFER 3-4 CM PER CXR. REPORTED TO PRIMARY RN JUANA. ALSO, TRANSFUSE 1 UNIT PRBCS.
--- NOTE | 2022-04-19 18:35 | NUR ---
CALLED RT GALEN, PER MAHI SMALL TO PULL BACK ET 2 CM PER CXR.
[2022-04-19] MEDS: ATORVASTATIN 20 MG TABLET GT SCH (19:12)
[2022-04-19 20:06] LABS: CREATININE 0.82 mg/dL (0.55-1.30)
[2022-04-19 20:08] LABS: CALCIUM 6.9 mg/dL (8.4-11.0)
[2022-04-19] MEDS ORDERED: TPN CENTRAL IV SCH ×10 (21:00)
[2022-04-19] MEDS ORDERED: POTASSIUM CHLORIDE IV SCH ×10 (21:00)
[2022-04-19] MEDS ORDERED: [UNRECOGNIZED DRUG - OTHER] IV SCH ×10 (21:00)
[2022-04-19] MEDS ORDERED: SODIUM CHLORIDE IV SCH ×10 (21:00)
[2022-04-20] VITALS (30 sets, daily range): BP systolic 104–173
[2022-04-20] MEDS: FENTANYL CITRATE-0.9 % NACL/PF 100 ML IV PRN ×4 (01:53→21:44)
[2022-04-20] MEDS: LR 1,000 ML IV SCH ×2 (01:54→20:30)
[2022-04-20] MEDS: METOCLOPRAMIDE HCL 10 MG/2 ML VIAL IVP SCH ×3 (01:59→18:12)
[2022-04-20] MEDS: METHYLPREDNISOLONE SOD SUCC 40 MG/ML VIAL IVP SCH ×4 (02:00→20:31)
[2022-04-20] MEDS: ALBUTEROL SULFATE 0.083% 2.5 MG/3 ML VIAL.NEB INH SCH ×6 (02:24→23:15)
[2022-04-20] MEDS: IPRATROPIUM BROM 0.5 MG/2.5 ML VIAL.NEB (ATROVENT) INH SCH ×6 (02:25→23:15)
[2022-04-20] MEDS: PIPERACILLIN/TAZO 4.5GM/DEX-IS 100 ML IV SCH ×3 (05:35→21:58)
[2022-04-20 06:06] LABS: HEMATOCRIT 29.5 % (36-54); LYMPHOCYTES # (AUTO) 0.5 K/uL (1.0-5.5); LYMPHOCYTES % (AUTO) 2.3 % (20.5-51.5); MEAN CORPUSCULAR HEMOGLOBIN 32 pg (27-31); MEAN CORPUSCULAR HGB CONC 34 % (32-36); MEAN CORPUSCULAR VOLUME 94 fL (79.0-98.0); MONOCYTES # (AUTO) 0.1 K/uL (0.0-1.0); MONOCYTES % (AUTO) 0.4 % (1.7-9.3); NEUTROPHILS # (AUTO) 19.4 K/uL (1.8-7.7); NEUTROPHILS % (AUTO) 97.3 % (40.0-70.0); PLATELET COUNT (AUTO) 80 K/uL (130-430); RED BLOOD CELL COUNT(AUTO) 3.14 MIL/uL (4.2-6.2); RED CELL DISTRIBUTION WIDTH 17.3 % (9.0-15.0); WHITE BLOOD COUNT (AUTO) 19.9 K/uL (4.8-10.8)
[2022-04-20] MEDS: SULFAMETHOXAZOLE /TRIMETHOPRIM 20 ML in D5W 500 ML IV SCH ×3 (06:55→22:44)
[2022-04-20] MEDS: BUDESONIDE 0.5 MG/2 ML AMPUL.NEB INH SCH ×2 (07:07→19:58)
--- NOTE | 2022-04-20 07:30 | NUR ---
Received report from endorsing power and recovery shift engineer RN for continuity of care. Patient is lying in bed with IVF D5 1/2 NS @ 50 mL/hr, propofol @ 40 mcg/kg/min, and fentanyl @ 130 mcg/hr. Ventilator settings AC 20, tidal volume 500, FIO2 70%, and peep of 5. Mason catheter is in place draining to gravity. Bed is locked and in lowest position, fall and safety precautions is in place.
[2022-04-20] MEDS: LACTOBACILLUS RHAMNOSUS GG 1 CAP CAPSULE GT SCH ×2 (08:05→20:29)
[2022-04-20] MEDS: CHOLECALCIFEROL (VITAMIN D3) 2,000 UNIT TABLET GT SCH ×2 (08:05→20:29)
[2022-04-20] MEDS: ASCORBIC ACID 500 MG TABLET GT SCH ×2 (08:05→20:29)
[2022-04-20] MEDS: ASPIRIN 81 MG TAB.CHEW GT SCH (08:05)
[2022-04-20] MEDS: ENOXAPARIN SODIUM 40 MG/0.4 ML SYRINGE SUBCUT SCH (08:07)
[2022-04-20 08:30] LABS: CALCIUM 7.3 mg/dL (8.4-11.0); CREATININE 0.77 mg/dL (0.55-1.30); PHOSPHORUS 2.3 mg/dL (2.7-4.5)
[2022-04-20] MEDS: FUROSEMIDE 20 MG/2 ML VIAL IVP SCH ×2 (08:32→18:12)
[2022-04-20] MEDS: FLUCONAZOLE 200 mg/ NS 100 ML IV SCH (08:33)
[2022-04-20] MEDS: PANTOPRAZOLE SODIUM 40 MG/VIAL (PROTONIX) IVP SCH (08:33)
--- NOTE | 2022-04-20 15:43 | NUR ---
RT NOTES Abdominal breathing pattern noted, H.R 119, Sat 87-88%. Increased FIO2 to 100%, sat improved to 93%. Rn made aware, will give ativan.
--- NOTE | 2022-04-20 15:51 | NUR ---
RT NOTES Sat 95%, titrated to 0.90
--- NOTE | 2022-04-20 16:45 | NUR ---
RT NOTES Sat 97%, FIO2 to 0.80. Rn notified.
[2022-04-20] MEDS: LORazepam 2 MG/ML VIAL IVP PRN (18:08)
[2022-04-20] MEDS: PROPOFOL DRIP 100 ML IV PRN ×2 (18:09→21:42)
--- NOTE | 2022-04-20 20:00 | NUR ---
RT NOTES CUFF LEAK OBSERVED THREE TIMES WITHIN THE HOUR. PT IS GETTING GOOD TIDAL VOLUMES. PUT AIR IN CUFF. POSSIBLE CUFF LEAK. RN GERMÁN AWARE. NOTIFIED DR JACOBSEN. DR JACOBSEN ADVISED NOT TO CHANGE ETT DUE TO PATIENTS UNSTABILITY AND ACCEPTABLE TIDAL VOLUMES RECEIVED AND PATIENT WILL GET A TRACHEOSTOMY TOMORROW DOES NOT WANT PATIENT TO EXPERIENCE MORE TRAUMA. WILL MONITOR PATIENT AND NOTIFY DR JACOBSEN IF THE TIDAL VOLUME GOES BELOW 350.
[2022-04-20] MEDS: ATORVASTATIN 20 MG TABLET GT SCH (20:29)
[2022-04-20] MEDS ORDERED: POTASSIUM CHLORIDE IV SCH ×9 (21:00)
[2022-04-20] MEDS ORDERED: SODIUM CHLORIDE IV SCH ×9 (21:00)
[2022-04-20] MEDS ORDERED: [UNRECOGNIZED DRUG - OTHER] IV SCH ×9 (21:00)
[2022-04-20] MEDS ORDERED: TPN CENTRAL IV SCH ×9 (21:00)
[2022-04-20] MEDS: INSULIN REGULAR, HUMAN 100 UNITS/ML, 3 ML VIAL (humuLIN R) SUBCUT PRN (22:01)
[2022-04-21] VITALS (32 sets, daily range): BP systolic 94–181
[2022-04-21] MEDS: METOCLOPRAMIDE HCL 10 MG/2 ML VIAL IVP SCH ×3 (02:07→17:40)
[2022-04-21] MEDS: METHYLPREDNISOLONE SOD SUCC 40 MG/ML VIAL IVP SCH ×4 (02:07→20:41)
[2022-04-21] MEDS: INSULIN REGULAR, HUMAN 100 UNITS/ML, 3 ML VIAL (humuLIN R) SUBCUT PRN ×4 (02:18→21:13)
[2022-04-21] MEDS: PROPOFOL DRIP 100 ML IV PRN ×4 (02:19→21:15)
[2022-04-21] MEDS: ALBUTEROL SULFATE 0.083% 2.5 MG/3 ML VIAL.NEB INH SCH ×6 (03:25→23:05)
[2022-04-21] MEDS: IPRATROPIUM BROM 0.5 MG/2.5 ML VIAL.NEB (ATROVENT) INH SCH ×6 (03:25→23:05)
[2022-04-21] MEDS: PIPERACILLIN/TAZO 4.5GM/DEX-IS 100 ML IV SCH ×3 (06:07→21:01)
[2022-04-21] MEDS: FENTANYL CITRATE-0.9 % NACL/PF 100 ML IV PRN ×3 (06:39→21:14)
--- NOTE | 2022-04-21 06:45 | NUR ---
RT NOTES Called to bedside per low sat, airway appears compromised, large leak noted, ETT found at 21cm. Per NOC Charge nurse, Dr Stanford did not want pt reintubated due to instability. Charge nurse called ER Dr Ju Santizo, who manipulated the ETT back to 23cm. Cuff did not appear to hold air, leak noted. CXR done, ETT appears high, attempted to push 2 cm to 25cm, CXR confirmed, ETT did not change position, likely curled/coiled. Rn to call surgery to see if tracheostomy can be done sooner, if not primary dr to see if ETT can be changed, reitubation.
[2022-04-21 06:52] LABS: CALCIUM 7.2 mg/dL (8.4-11.0); CREATININE 0.84 mg/dL (0.55-1.30); PHOSPHORUS 3.7 mg/dL (2.7-4.5)
[2022-04-21 07:10] LABS: HEMATOCRIT 30.4 % (36-54); HEMOGLOBIN 10.1 g/dL (14.0-18.0); LYMPHOCYTES # (AUTO) 0.3 K/uL (1.0-5.5); LYMPHOCYTES % (AUTO) 1.5 % (20.5-51.5); MEAN CORPUSCULAR HEMOGLOBIN 32 pg (27-31); MEAN CORPUSCULAR HGB CONC 33 % (32-36); MEAN CORPUSCULAR VOLUME 97 fL (79.0-98.0); MONOCYTES # (AUTO) 0.3 K/uL (0.0-1.0); MONOCYTES % (AUTO) 1.3 % (1.7-9.3); NEUTROPHILS # (AUTO) 18.3 K/uL (1.8-7.7); NEUTROPHILS % (AUTO) 97.2 % (40.0-70.0); PLATELET COUNT (AUTO) 62 K/uL (130-430); RED BLOOD CELL COUNT(AUTO) 3.15 MIL/uL (4.2-6.2); RED CELL DISTRIBUTION WIDTH 18.1 % (9.0-15.0); WHITE BLOOD COUNT (AUTO) 18.8 K/uL (4.8-10.8)
--- NOTE | 2022-04-21 07:14 | NUR ---
At 0645 patient O2 dropped to 76%. RT called and Dr. Santizo notified. ET tube was manipulated and O2 increased to 94%. Waiting for X-ray to confirm placement. Report given to Dewayne DOVE.
--- NOTE | 2022-04-21 07:30 | NUR ---
Received report from endorsing fashion illustrator RN for continuity of care. Patient is lying in bed with IVF D5 1/2 NS @ 50 mL/hr, propofol @ 40 mcg/kg/min, and fentanyl @ 140 mcg/hr. Ventilator settings AC 20, tidal volume 500, FIO2 100%, and peep of 5. Mason catheter is in place draining to gravity. Bed is locked and in lowest position, fall and safety precautions is in place. Pt having some issues with ETT tube as the airway might be compromised.
[2022-04-21] MEDS: BUDESONIDE 0.5 MG/2 ML AMPUL.NEB INH SCH ×2 (07:31→19:55)
--- NOTE | 2022-04-21 08:00 | NUR ---
PT O2 SATURATION TRENDING IN THE HIGH 70s SINCE SHIFT CHANGE. AT SHIFT CHANGE, ED MD ATTEMPTED TO MANIPULATE ETT TO IMPROVE SATS, CURRENTLY UNSUCCESSFUL. PAGED MD ALVAREZ AND CALLED MD WANG ON THE PHONE TO DISCUSS POSSIBLY EARLIER FOR PROCEDURE. MD REMAINS IN OR ALL MORNING. PROCEDURE TO BE SET AT 1430. WILL CONTACT ED PHYSICIAN FOR POSSIBLE EXCHANGE OF ETT TUBE IN THE MEANTIME.
--- NOTE | 2022-04-21 08:15 | NUR ---
ED MD NOTIFIED TO ASSIST IN RESPONDING FOR ETT EXCHANGE TO PREVENT POSSIBLE ANOXIC BRAIN INJURY PATIENT REMAINS IN THE 70s FOR O2 SATURATION.
[2022-04-21] MEDS: CHOLECALCIFEROL (VITAMIN D3) 2,000 UNIT TABLET GT SCH ×2 (08:26→21:00)
[2022-04-21] MEDS: ASCORBIC ACID 500 MG TABLET GT SCH ×2 (08:26→21:00)
[2022-04-21] MEDS: LACTOBACILLUS RHAMNOSUS GG 1 CAP CAPSULE GT SCH ×2 (08:26→21:00)
[2022-04-21] MEDS: ASPIRIN 81 MG TAB.CHEW GT SCH (08:26)
[2022-04-21] MEDS: ENOXAPARIN SODIUM 40 MG/0.4 ML SYRINGE SUBCUT SCH (08:32)
[2022-04-21] MEDS ORDERED: ETOMIDATE 20 MG/ 10 ML VIAL (AMIDATE) IVP ONE (08:40)
[2022-04-21] MEDS ORDERED: ETOMIDATE 20 MG/ 10 ML VIAL (AMIDATE) ONE (08:40)
[2022-04-21] MEDS ORDERED: SUCCINYLCHOLINE CHLORIDE 20 MG/ML(QUELICIN) ONE (08:40)
[2022-04-21] MEDS ORDERED: SUCCINYLCHOLINE CHLORIDE 20 MG/ML(QUELICIN) IVP ONE (08:41)
--- NOTE | 2022-04-21 08:45 | NUR ---
RT NOTES Dr Ju Santizo reintubated with 7.5 ETT, secured at 23cm lipline. Colorimetric changed to yellow, bilateral breath sounds and chest rise noted. Pt back on vent, PEEP to 2 due to PIP >40.
--- NOTE | 2022-04-21 08:45 | NUR ---
ED MD BOWLING ASSISTED WITH ETT EXCHANGE. 100MG SUCC AND 20MG ETOMIDATE USED FOR PROCEDURE.
[2022-04-21] MEDS: SULFAMETHOXAZOLE /TRIMETHOPRIM 20 ML in D5W 500 ML IV SCH ×2 (09:15→17:49)
[2022-04-21] MEDS: FUROSEMIDE 20 MG/2 ML VIAL IVP SCH ×2 (09:26→17:40)
[2022-04-21] MEDS: PANTOPRAZOLE SODIUM 40 MG/VIAL (PROTONIX) IVP SCH (09:28)
--- NOTE | 2022-04-21 09:30 | NUR ---
MD WHITLOCK AT BEDSIDE PATIENT SATURATION IN THE 80s. CURRENTLY FEELS PATIENT IS UNSTABLE FOR PROCEDURES TODAY. STATES HE CAN IF PATIENT IMPROVES.
--- NOTE | 2022-04-21 12:25 | NUR ---
RT NOTES Sat 79%, increased work of breathing noted. Per Rn, possible sedation issue, which he addressed.
[2022-04-21] MEDS: FLUCONAZOLE 200 mg/ NS 100 ML IV SCH (12:30)
--- NOTE | 2022-04-21 16:00 | NUR ---
MD WANG AT BEDSIDE AWAITING ANESTHESIA FOR POSSIBLE TRACH/PEG.
[2022-04-21] MEDS: LR 1,000 ML IV SCH (16:31)
--- NOTE | 2022-04-21 17:30 | NUR ---
Nutrition F/U RD reviewed pts current EMR including diet hx, physician notes, nursing notes, pertinent labs/meds/procedures, care trends and care activity. Short note d/t high workload Subjective Information: Per LOS meeting, plan for trach/PEG today at 1400; pt was re-intubated yesterday; continues on propofol drip. RD spoke w/ pt's primary RN this afternoon. He reported that pt will likely only have PEG placed as pt's respiratory issues are not yet stable enough for trach placement. Propofol seen infusing at 20.14 ml/hr (532 kcal/day from lipids). He also reported pt's BG levels continue elevated, so he asked Dr. Lux, ID doc, if an ABX order could possibly be switched to tablet form to be crushed and given via GT soon d/t that specific ABX currently being infusing in a 500 ml of D5 solution. He also stated that pharmacy is in the process of adjusting pt's insulin dose. Current Diet Order/Nutrition Support: Glucerna 1.5 at 50 ml/hr, Free Water Flush: 150 Q4 via OGT x 6 days (pt is not receiving any EN support) & TPN D30%, AA10% at 60 ml/hr via central line % PO intake: NPO Last BM: x2 04/10 (8 days ago) Estimated Energy Expenditure (kcals/day) 1812 kcal (PSU 2003: vent/ ICU. MSJ 1445, Tmax 36.77, Ve 16) Estimated Protein Required (g/day) 80-101 (1.2-1.5 g/kg CBW (67 kg) d/t critically ill) Estimated Fluid Required (l/day) 1.8L (1 ml/kcal/day for GERIAT maintenance) Problem/Etiology/Signs/Symptoms * Suboptimal EN support R/T risk for overfeeding AEB current TF prescription exceeds 160% of estimated caloric needs and meets 161% of upper end of estimated protein needs. *Resolved * Suboptimal nutrient intakes R/T decreased appetite, labored breathing AEB documented decreased PO intake. *N/A * Inadequate TPN support R/T metabolic demands AEB estimated nutritional requirements for respiratory failure/critical illness. *Ongoing Expected Outcomes/Goals EN tolerated at goal rate, EN provides >95% estimated nutritional needs, improvements in skin integrity, nutrition-related labs trending WNL, weight maintenance, BM q 1-3 days Dietitian Recommendations * Clarify NPO order and D/C TF order * TPN D30%, AA10% at 70 ml/hr (goal rate), IL20% at 10 ml/hr via central line Provides: 1673 kcal/day, 84 gm protein/day, 1920 ml total volume/day, and GIR: 2.6 mg CHO/kg/min Meets: 92% of est kcal needs, 105% of lower end of est PRO needs, and 107 % of est fluid needs * If extubated, please contact RD to re-assess nutritional needs * Consider bowel regimen, pt has no documented BM in 11 days * Consider modification of insulin regimen for improved glycemic control Follow up High Risk: RD to F/U within 2-3 days
--- NOTE | 2022-04-21 17:35 | NUR ---
Dietitian Recommendations * Clarify NPO order and D/C TF order * TPN D30%, AA10% at 70 ml/hr (goal rate), IL20% at 10 ml/hr via central line Provides: 1673 kcal/day, 84 gm protein/day, 1920 ml total volume/day, and GIR: 2.6 mg CHO/kg/min Meets: 92% of est kcal needs, 105% of lower end of est PRO needs, and 107 % of est fluid needs * If extubated, please contact RD to re-assess nutritional needs * Consider bowel regimen, pt has no documented BM in 11 days * Consider modification of insulin regimen for improved glycemic control LP, MS, RD Please refer to Nutrition F/U for details.
--- NOTE | 2022-04-21 18:00 | NUR ---
MD MANUEL DISCUSSING THE RISKS WITH TRACH, HIGH FIO2 AND BOVI. ADVISED AGAINST TRACH.
--- NOTE | 2022-04-21 18:30 | NUR ---
MD MANUEL AND MD WANG DISCUSSED WITH KIM ABOUT PEG ONLY. ADVISED FAMILY
[2022-04-21] MEDS ORDERED: fentaNYL CITRATE/PF 100 MCG/2 ML AMP ONE (19:02)
[2022-04-21] MEDS ORDERED: WATER FOR IRRIGATION,STERILE 1,000 ML IRRIG.SOLN IR ONE (19:02)
[2022-04-21] MEDS ORDERED: LR 1,000 ML IV.SOLN IV ONE (19:02)
[2022-04-21] MEDS ORDERED: LIDOCAINE/EPI 1% 1:100000 20 ML VIAL ONE (19:02)
[2022-04-21] MEDS ORDERED: PROPOFOL 200MG/ 20ML VIAL (DIPRIVAN) IV ONE (19:02)
[2022-04-21] MEDS ORDERED: NS IRRIG SOLN 1000 ML IR ONE (19:02)
[2022-04-21] MEDS ORDERED: MUPIROCIN 2% TOPICAL OINTMENT 22 GM ONE (19:02)
[2022-04-21] MEDS ORDERED: SODIUM CHLORIDE IV SCH ×10 (21:00)
[2022-04-21] MEDS ORDERED: [UNRECOGNIZED DRUG - OTHER] IV SCH ×10 (21:00)
[2022-04-21] MEDS ORDERED: TPN CENTRAL IV SCH ×10 (21:00)
[2022-04-21] MEDS: ATORVASTATIN 20 MG TABLET GT SCH (21:00)
[2022-04-21] MEDS ORDERED: POTASSIUM CHLORIDE IV SCH ×10 (21:00)
[2022-04-22] VITALS (30 sets, daily range): BP systolic 85–164
[2022-04-22] MEDS: PROPOFOL DRIP 100 ML IV PRN ×5 (01:36→20:58)
[2022-04-22] MEDS: SULFAMETHOXAZOLE /TRIMETHOPRIM 20 ML in D5W 500 ML IV SCH ×3 (01:55→18:03)
[2022-04-22] MEDS: INSULIN REGULAR, HUMAN 100 UNITS/ML, 3 ML VIAL (humuLIN R) SUBCUT PRN ×6 (01:57→23:51)
[2022-04-22] MEDS: METOCLOPRAMIDE HCL 10 MG/2 ML VIAL IVP SCH ×3 (02:37→18:37)
[2022-04-22] MEDS: METHYLPREDNISOLONE SOD SUCC 40 MG/ML VIAL IVP SCH ×4 (02:37→20:41)
[2022-04-22] MEDS: ALBUTEROL SULFATE 0.083% 2.5 MG/3 ML VIAL.NEB INH SCH ×6 (03:00→23:20)
[2022-04-22] MEDS: IPRATROPIUM BROM 0.5 MG/2.5 ML VIAL.NEB (ATROVENT) INH SCH ×6 (03:15→23:21)
[2022-04-22] MEDS: FENTANYL CITRATE-0.9 % NACL/PF 100 ML IV PRN ×3 (04:20→18:40)
[2022-04-22] MEDS: PIPERACILLIN/TAZO 4.5GM/DEX-IS 100 ML IV SCH (05:57)
[2022-04-22 07:37] LABS: HEMOGLOBIN 10.1 g/dL (14.0-18.0); MEAN CORPUSCULAR HEMOGLOBIN 32 pg (27-31); MEAN CORPUSCULAR HGB CONC 33 % (32-36); MEAN CORPUSCULAR VOLUME 97 fL (79.0-98.0); PLATELET COUNT (AUTO) 52 K/uL (130-430); RED BLOOD CELL COUNT(AUTO) 3.21 MIL/uL (4.2-6.2); WHITE BLOOD COUNT (AUTO) 17.9 K/uL (4.8-10.8)
--- NOTE | 2022-04-22 08:05 | NUR ---
G DRAWN ON PT READ BACK RESULTS TO DERRELL VOGEL. WILL CONTINUE TO MONITOR.
[2022-04-22] MEDS: ASCORBIC ACID 500 MG TABLET GT SCH ×2 (09:00→20:48)
[2022-04-22] MEDS: CHOLECALCIFEROL (VITAMIN D3) 2,000 UNIT TABLET GT SCH ×2 (09:00→20:43)
[2022-04-22] MEDS: ASPIRIN 81 MG TAB.CHEW GT SCH (09:00)
[2022-04-22] MEDS: LACTOBACILLUS RHAMNOSUS GG 1 CAP CAPSULE GT SCH ×2 (09:00→20:42)
[2022-04-22 09:06] LABS: CALCIUM 7.2 mg/dL (8.4-11.0); CREATININE 0.67 mg/dL (0.55-1.30); PHOSPHORUS 2.9 mg/dL (2.7-4.5); TOTAL BILIRUBIN 0.7 mg/dL (0.0-1.0)
[2022-04-22] MEDS: PANTOPRAZOLE SODIUM 40 MG/VIAL (PROTONIX) IVP SCH (09:48)
[2022-04-22] MEDS: FLUCONAZOLE 200 mg/ NS 100 ML IV SCH (09:48)
[2022-04-22] MEDS: FUROSEMIDE 20 MG/2 ML VIAL IVP SCH ×2 (09:48→18:03)
[2022-04-22] MEDS: ENOXAPARIN SODIUM 40 MG/0.4 ML SYRINGE SUBCUT SCH (09:48)
[2022-04-22] MEDS: BUDESONIDE 0.5 MG/2 ML AMPUL.NEB INH SCH ×2 (09:52→19:13)
--- NOTE | 2022-04-22 10:00 | NUR ---
PER MD ALVAREZ, MD PURCELL FROM [facility] CONSULTED FOR BEDSIDE TRACH. MD PURCELL AWARE OF THE PATIENT, TO SEE TODAY AND PLAN TRACH PLACEMENT. MD WANG PLACED PEG TUBE YESTERDAY. OK TO USE PER MD WANG AND MD ALVAREZ TONIGHT AT 8PM, START GLUCERNA, GOAL RATE OF 30CC/HR.
--- NOTE | 2022-04-22 10:20 | NUR ---
SPOKE TO [place] SILVER CT SURGEON VIA TELEPHONE FOR UPDATE ON PATIENT. NO NEW ORDERS, UPDATED PT ON FIO2@100%, UNABLE TO TRANSFER PATIENT AT THIS TIME.
[2022-04-22] MEDS: LORazepam 2 MG/ML VIAL IVP PRN (10:22)
[2022-04-22 10:25] LABS: PHOSPHORUS 2.8 mg/dL (2.7-4.5)
--- NOTE | 2022-04-22 10:25 | NUR ---
PT HAS SUDDEN RUN OF TACHYCARDIA, APPEARS TO BE A-FLUTTER. MD WHITLOCK TOLD IN PERSON ON MST UNIT. CAME TO ASSESS PATIENT. ORDERED STAT EKG. RT JAYLYN CALLED, STAT ORDER PLACED. NAD NOTED. WILL SHOW MD WHITLOCK EKG AFTER FINISHED.
--- NOTE | 2022-04-22 10:45 | NUR ---
CONSULT WAS ORDERED FOR PT NO NEED TO CALL ALREADY SPOKE WITH JASPREET
[2022-04-22 10:47] LABS: BAND % (MANUAL) 12 % (0-6); LYMPHOCYTES % (MANUAL) 5 % (20-46); MONOCYTES % (MANUAL) 1 % (0-11)
[2022-04-22 10:48] LABS: BASOPHILS % (MANUAL) 0 % (0-2); EOSINOPHILS % (MANUAL) 0 % (0-7)
[2022-04-22] MEDS ORDERED: AMIODARONE HCL 150 MG in D5W 100 ML IV ONE (11:00)
[2022-04-22] MEDS ORDERED: AMIODARONE HCL 150 MG/3ML VIAL ONE (11:26)
--- NOTE | 2022-04-22 13:36 | NUR ---
DR ALVAREZ AT BEDSIDE AND STATED DR JACOBSEN IS NO LONGER PULMO AND DR PURCELL AND HER GROUP ARE ON THE CASE.
[2022-04-22] MEDS: LR 1,000 ML IV SCH (13:54)
--- NOTE | 2022-04-22 17:28 | NUR ---
LAST VENT CHECK ON PT PT WAS SATING 89%. HME NEEDED CHANGING, RT CHANGED HME AND SUCTIONED PT. PT BECAME UNSTABLE AND SATED IN TH LOW 80S. RN AND RT WAITING AT BEDSIDE FOR PT TO BECOME MORE STABLE. AFTER 5 MINUTES PT BECAME STABLE DUE TO INCREASING PEEP TO 3.5 FOR THAT 5 MINUTES. PT SPO2 INCREASED TO 93% RT TITRATED PEEP BACK TO 2.0 PT STILL SATING SPO2 92%. WILL CONTINUE TO MONITOR. Addendum: 04/22/22 at 1733 by Snow Gibson RT Amended: Links added.
--- NOTE | 2022-04-22 20:00 | NUR ---
RN NOTES STILL ORALLY INTUBATED TO VENT, ON PRESSURE CONTROL. SPO2 ON THE LOW 90s. FENTANYL DRIP AND PROPOFOL DRIP INFUSING VIA LEFT UPPER ARM PICC, SINUS TACHYCARDIA ON THE MONITOR.
[2022-04-22] MEDS: ATORVASTATIN 20 MG TABLET GT SCH (20:42)
[2022-04-22] MEDS: AMIODARONE HCL 200 MG TABLET PO SCH (20:47)
[2022-04-22] MEDS: ERAVACYCLINE DI-HYDROCHLORIDE 65 MG in NS 250 ML IV SCH (20:48)
[2022-04-22] MEDS ORDERED: [UNRECOGNIZED DRUG - OTHER] IV SCH ×10 (21:00)
[2022-04-22] MEDS ORDERED: POTASSIUM CHLORIDE IV SCH ×10 (21:00)
[2022-04-22] MEDS ORDERED: SODIUM CHLORIDE IV SCH ×10 (21:00)
[2022-04-22] MEDS ORDERED: TPN CENTRAL IV SCH ×10 (21:00)
[2022-04-22] MEDS: METOPROLOL TARTRATE 5 MG/5 ML VIAL IVP PRN (23:49)
[2022-04-23] VITALS (32 sets, daily range): BP systolic 83–145
[2022-04-23] MEDS: SULFAMETHOXAZOLE /TRIMETHOPRIM 20 ML in D5W 500 ML IV SCH ×3 (01:42→17:57)
[2022-04-23] MEDS: METOCLOPRAMIDE HCL 10 MG/2 ML VIAL IVP SCH ×3 (01:43→17:57)
[2022-04-23] MEDS: INSULIN REGULAR, HUMAN 100 UNITS/ML, 3 ML VIAL (humuLIN R) SUBCUT PRN ×3 (01:50→10:32)
[2022-04-23] MEDS: IPRATROPIUM BROM 0.5 MG/2.5 ML VIAL.NEB (ATROVENT) INH SCH ×6 (03:16→23:00)
[2022-04-23] MEDS: ALBUTEROL SULFATE 0.083% 2.5 MG/3 ML VIAL.NEB INH SCH ×6 (03:17→23:00)
[2022-04-23] MEDS: METOPROLOL TARTRATE 5 MG/5 ML VIAL IVP PRN (03:56)
[2022-04-23] MEDS: METHYLPREDNISOLONE SOD SUCC 40 MG/ML VIAL IVP SCH ×4 (03:59→21:00)
--- NOTE | 2022-04-23 06:00 | NUR ---
RN NOTES BS 277 MG/DL GLUCERNA FEEDING STARTED AT 30 CC/HR AM CARE DONE, REPOSITIONED FOR COMFORT.
[2022-04-23] MEDS: FENTANYL CITRATE-0.9 % NACL/PF 100 ML IV PRN ×3 (06:44→23:02)
[2022-04-23] MEDS: BUDESONIDE 0.5 MG/2 ML AMPUL.NEB INH SCH ×2 (07:18→19:55)
[2022-04-23 07:20] LABS: BASOPHILS % (AUTO) 0.1 % (0.0-2.0); HEMATOCRIT 26.7 % (36-54); HEMOGLOBIN 8.8 g/dL (14.0-18.0); LYMPHOCYTES # (AUTO) 0.3 K/uL (1.0-5.5); LYMPHOCYTES % (AUTO) 1.6 % (20.5-51.5); MEAN CORPUSCULAR HEMOGLOBIN 32 pg (27-31); MEAN CORPUSCULAR HGB CONC 33 % (32-36); MEAN CORPUSCULAR VOLUME 97 fL (79.0-98.0); MONOCYTES # (AUTO) 0.2 K/uL (0.0-1.0); MONOCYTES % (AUTO) 0.9 % (1.7-9.3); NEUTROPHILS # (AUTO) 16.3 K/uL (1.8-7.7); NEUTROPHILS % (AUTO) 97.4 % (40.0-70.0); RED BLOOD CELL COUNT(AUTO) 2.76 MIL/uL (4.2-6.2); RED CELL DISTRIBUTION WIDTH 17.8 % (9.0-15.0); WHITE BLOOD COUNT (AUTO) 16.8 K/uL (4.8-10.8)
--- NOTE | 2022-04-23 07:28 | NUR ---
SBAR REPORT RECEIVED FROM GITA DOVE, ALL CARES ASSUMED. PT RESTING IN BED WITH EYES CLOSED. ETT TO VENT, AC 24, PC 35, 100%, 2. IV DRIPS INFUSING TO JENNIFER PICC. EMERSON CATHETER DRAINING TO GRAVITY. TUBE FEEDING VIA G-TUBE. BED IN LOW AND LOCKED POSITION.
[2022-04-23 07:35] LABS: PLATELET COUNT (AUTO) 33 K/uL (130-430)
[2022-04-23 07:52] LABS: CALCIUM 7.4 mg/dL (8.4-11.0); CREATININE 0.83 mg/dL (0.55-1.30); PHOSPHORUS 2.1 mg/dL (2.7-4.5)
--- NOTE | 2022-04-23 08:12 | NUR ---
CRITICAL LAB: VERONICA from Laboratory called with critical lab value platelets 33. Medical record number and patient name verified. Read back of values done. Dr. Juarez notified of value. Hold lovenox orders given at this time. Additional order to titrate down and turn off TPN and D/C LR IVF.
[2022-04-23] MEDS: ASCORBIC ACID 500 MG TABLET GT SCH ×2 (08:48→21:00)
[2022-04-23] MEDS: ASPIRIN 81 MG TAB.CHEW GT SCH (08:48)
[2022-04-23] MEDS: LACTOBACILLUS RHAMNOSUS GG 1 CAP CAPSULE GT SCH ×2 (08:49→21:00)
[2022-04-23] MEDS: AMIODARONE HCL 200 MG TABLET PO SCH ×2 (08:49→21:51)
[2022-04-23] MEDS: FUROSEMIDE 20 MG/2 ML VIAL IVP SCH ×2 (08:50→17:57)
[2022-04-23] MEDS: PANTOPRAZOLE SODIUM 40 MG/VIAL (PROTONIX) IVP SCH (08:50)
[2022-04-23] MEDS: CHOLECALCIFEROL (VITAMIN D3) 2,000 UNIT TABLET GT SCH ×2 (08:51→21:00)
[2022-04-23] MEDS: FLUCONAZOLE 200 mg/ NS 100 ML IV SCH (08:51)
[2022-04-23] MEDS: ERAVACYCLINE DI-HYDROCHLORIDE 65 MG in NS 250 ML IV SCH ×2 (09:00→21:00)
[2022-04-23] MEDS: PROPOFOL DRIP 100 ML IV PRN ×4 (09:14→21:23)
[2022-04-23] MEDS: LORazepam 2 MG/ML VIAL IVP PRN (10:19)
[2022-04-23] MEDS: ENOXAPARIN SODIUM 40 MG/0.4 ML SYRINGE SUBCUT SCH (10:33)
[2022-04-23] MEDS ORDERED: NOREPINEPHRINE 4 MG/4 ML VIAL IV ONE (11:17)
--- NOTE | 2022-04-23 12:30 | NUR ---
BASELINE TOF BASELINE TOF 4/4 AT 8.
[2022-04-23] MEDS: VECURONIUM BROMIDE 50 MG in NS 50 ML IV PRN (12:39)
[2022-04-23] MEDS: NOREPINEPHRINE BITARTRATE 32 MG in D5W 242 ML IV PRN ×2 (12:41→14:27)
[2022-04-23] MEDS ORDERED: MIDAZOLAM IN NACL,ISO-OSMOT/PF 100 ML IV PRN (13:15)
[2022-04-23 13:42] LABS: PROTHROMBIN TIME 10.2 SECS (9.5-12.5)
[2022-04-23] MEDS: ACETAMINOPHEN 325 MG TABLET PO PRN (13:46)
--- NOTE | 2022-04-23 14:19 | NUR ---
rt notes 1335 vent changes to pc 32 peep5. rn aware, abg in 1 hour.
[2022-04-23 18:05] LABS: HEMATOCRIT 29.7 % (36-54); HEMOGLOBIN 9.6 g/dL (14.0-18.0); MEAN CORPUSCULAR HEMOGLOBIN 32 pg (27-31); MEAN CORPUSCULAR HGB CONC 32 % (32-36); MEAN CORPUSCULAR VOLUME 98 fL (79.0-98.0); RED BLOOD CELL COUNT(AUTO) 3.03 MIL/uL (4.2-6.2)
[2022-04-23 18:30] LABS: PLATELET COUNT (AUTO) 44 K/uL (130-430)
[2022-04-23 18:43] LABS: BAND % (MANUAL) 18 % (0-6); BASOPHILS % (MANUAL) 0 % (0-2); EOSINOPHILS % (MANUAL) 0 % (0-7); LYMPHOCYTES % (MANUAL) 5 % (20-46); MONOCYTES % (MANUAL) 1 % (0-11)
[2022-04-23] MEDS ORDERED: VECURONIUM BROMIDE 10 MG/VIAL (NORCURON) ONE ×2 (20:00→20:49)
--- NOTE | 2022-04-23 20:50 | NUR ---
RT NOTES DR DENG NOTIFIED DUE TO CHANGE OF CONDITION FOR POSSIBLE VENT ADJUSTMENT. SPO2 IN 60'S. PT IS TACHYCARDIC. NO CHANGED ON VENTILATOR ORDERED. CXRAY ORDERED FOR AM. WILL MONITOR PATIENT. Addendum: 04/23/22 at 2110 by Mika Cruz RT Amended: Links added.
--- NOTE | 2022-04-23 20:55 | NUR ---
Pt SPO2 60%, primary care RN and RT at bedside. Paged on-call pediatric dermatologist to update on pt status.
[2022-04-23] MEDS ORDERED: SODIUM CHLORIDE IV SCH ×10 (21:00)
[2022-04-23] MEDS: ATORVASTATIN 20 MG TABLET GT SCH (21:00)
[2022-04-23] MEDS ORDERED: K PHOS IV SCH ×10 (21:00)
[2022-04-23] MEDS ORDERED: TPN CENTRAL IV SCH ×10 (21:00)
[2022-04-23] MEDS ORDERED: [UNRECOGNIZED DRUG - OTHER] IV SCH ×10 (21:00)
--- NOTE | 2022-04-23 23:45 | NUR ---
2029 RECEIVED PT AT SHIFT CHANGE APPEARS TO BE UNSTABLE. O2 SAT LOW 70. CALLED RESP CAME GAVE PT TX. PT THEN HIS O2 SAT WAS IN THE 75 s. CONTINUE TO MONITOR AND BEGAN TO TITRATE SOME MEDS THAT WERE HANGING. MYSELF AND FLAVIO RESP [facility] CONTINUE TO MONITOR PT STATUS. 2299 NOTICE PT B/P WENT UP TO 170s OVER 90s AND 67 O2SAT AND HR 130. THE VEC WAS REMOVED AND TURNED OFF. TITRATED LEVO AND PROPOFOL. 2344 FIRST PERSON I CALLED WAS DR. DENG PULMONARY. TOLD HIM THE PT WAS MAX OUT ON VET SETTINGS AND O2 SAT WAS 62% TO 63%. HE STATED HE DID NOT KNOW THE PATIENT AND LET THE AM DOCTOR BINH ASSESS THE PT AND RE-ADDRESS THE ORDER OF PRONINIG. [address] JACOBSEN WAS THE PREVIOUS PULOMNARY DRMaciel AND WAS SWITCHED OFF THE CASE. HE SAID HE WOULD CALL ME BACK WITH AN ANSWER. 10 MIN LATER HE SAID HE REALLY COULD NOT MAKE A DECISION IN HIS CARE AND SAID CALL THE PRIMARY ATTENDING DR. ALVAREZ TO GET FUTHER INSTRUCTIONS. I CALLED ATTENDING HE SAID NO , NO TWICE AND GAVE ME AN ORDER NOT TO PRONE PT. MYSELF, RESP TECH, AND CHARGE NURSE DAINA DOVE WERE ALL IN AGREEMENT WITH THE PT NOT BEING PRONE ASESSMENT CRESPO AND THE UNSTABLITY HE WAS EXHIBITING. 7P-7A STARLA DOVE
[2022-04-24] VITALS (24 sets, daily range): BP systolic 79–118
[2022-04-24] MEDS: SULFAMETHOXAZOLE /TRIMETHOPRIM 20 ML in D5W 500 ML IV SCH ×2 (02:00→12:54)
[2022-04-24] MEDS: METOCLOPRAMIDE HCL 10 MG/2 ML VIAL IVP SCH ×2 (02:30→10:30)
[2022-04-24] MEDS: IPRATROPIUM BROM 0.5 MG/2.5 ML VIAL.NEB (ATROVENT) INH SCH ×3 (03:20→11:43)
[2022-04-24] MEDS: ALBUTEROL SULFATE 0.083% 2.5 MG/3 ML VIAL.NEB INH SCH ×3 (03:21→11:44)
[2022-04-24] MEDS: METHYLPREDNISOLONE SOD SUCC 40 MG/ML VIAL IVP SCH ×3 (04:15→15:55)
[2022-04-24] MEDS: BUDESONIDE 0.5 MG/2 ML AMPUL.NEB INH SCH (07:14)
[2022-04-24] MEDS: INSULIN REGULAR, HUMAN 100 UNITS/ML, 3 ML VIAL (humuLIN R) SUBCUT PRN ×3 (07:22→16:00)
[2022-04-24] MEDS: NOREPINEPHRINE BITARTRATE 32 MG in D5W 242 ML IV PRN (07:35)
--- NOTE | 2022-04-24 08:00 | NUR ---
ASAD SAINI RN IS ONE TO ONE WITH THIS VERY UNSTABLE PT-PT ON 1 PRESSOR, ADDING VASO TO THE LEVOPHED, AND PT ON SEDATION WELL PARALYTIC MEDS DUE TO THE PT PRESSURE CONTROL VENTILATION AND FIO2 OF 100%-PT O2 SAT 53% ON THIS HIGH RATE OF FIO2-PT TO BE PRONED TODAY/MW
[2022-04-24] MEDS ORDERED: FUROSEMIDE 40 MG/4 ML VIAL IVP ONE (08:30)
[2022-04-24] MEDS: FUROSEMIDE 100 MG in D5W 90 ML IV SCH ×2 (09:00→09:46)
[2022-04-24] MEDS: LACTOBACILLUS RHAMNOSUS GG 1 CAP CAPSULE GT SCH (09:00)
[2022-04-24] MEDS: CHOLECALCIFEROL (VITAMIN D3) 2,000 UNIT TABLET GT SCH (09:00)
[2022-04-24] MEDS: AMIODARONE HCL 200 MG TABLET PO SCH (09:00)
[2022-04-24] MEDS: ASCORBIC ACID 500 MG TABLET GT SCH (09:00)
[2022-04-24] MEDS: ASPIRIN 81 MG TAB.CHEW GT SCH (09:00)
[2022-04-24 09:09] LABS: BASOPHILS % (AUTO) 0.1 % (0.0-2.0); EOSINOPHILS % (AUTO) 0.1 % (0.0-4.0); HEMATOCRIT 26.1 % (36-54); HEMOGLOBIN 8.3 g/dL (14.0-18.0); LYMPHOCYTES # (AUTO) 0.7 K/uL (1.0-5.5); LYMPHOCYTES % (AUTO) 3.2 % (20.5-51.5); MEAN CORPUSCULAR HEMOGLOBIN 32 pg (27-31); MEAN CORPUSCULAR HGB CONC 32 % (32-36); MEAN CORPUSCULAR VOLUME 101 fL (79.0-98.0); MONOCYTES # (AUTO) 0.2 K/uL (0.0-1.0); MONOCYTES % (AUTO) 0.9 % (1.7-9.3); NEUTROPHILS # (AUTO) 20.3 K/uL (1.8-7.7); NEUTROPHILS % (AUTO) 95.7 % (40.0-70.0); RED BLOOD CELL COUNT(AUTO) 2.59 MIL/uL (4.2-6.2); RED CELL DISTRIBUTION WIDTH 18.6 % (9.0-15.0); WHITE BLOOD COUNT (AUTO) 21.2 K/uL (4.8-10.8)
[2022-04-24 09:12] LABS: PLATELET COUNT (AUTO) 29 K/uL (130-430)
[2022-04-24 09:24] LABS: CALCIUM 7.1 mg/dL (8.4-11.0); CREATININE 2.06 mg/dL (0.55-1.30)
[2022-04-24 09:29] LABS: ALBUMIN 1.5 g/dL (3.4-4.8); PHOSPHORUS 7.9 mg/dL (2.7-4.5); TOTAL BILIRUBIN 0.8 mg/dL (0.0-1.0)
[2022-04-24] MEDS ORDERED: SODIUM BICARBONATE 8.4% JECT 50 MEQ/50 ML SYRINGE IVP ONE ×2 (09:45)
[2022-04-24] MEDS ORDERED: DEXTROSE 50% JECT 50 ML DISP.SYRIN IVP ONE (09:45)
[2022-04-24] MEDS ORDERED: INSULIN REGULAR, HUMAN 10 UNITS/0.1 ML, 3 ML VIAL IVP ONE (09:45)
[2022-04-24] MEDS: FENTANYL CITRATE-0.9 % NACL/PF 100 ML IV PRN (09:48)
[2022-04-24] MEDS: VASOPRESSIN 40 UNITS in NS 38 ML IV PRN ×2 (09:50→15:33)
[2022-04-24] MEDS: VECURONIUM BROMIDE 50 MG in NS 50 ML IV PRN ×2 (09:53→16:49)
--- NOTE | 2022-04-24 09:56 | NUR ---
Nutrition F/U RD reviewed pts current EMR including diet hx, physician notes, nursing notes, pertinent labs/meds/procedures, care trends and care activity. Subjective Information: RD rounded to ICU and looked into pt room. Pts RN and was in there and pt was in the prone position d/t increased breathing trouble. It did not seem appropriate to enter the room. RD s/w charge account clerk. She attested that pt got the GT and is receiving 5mL/hr of Glucerna and TPN is off now. She said pt prognosis is very poor and he will likely pass today or tomorrow. Pt is DNR. Current Diet Order/Nutrition Support: Glucerna 1.2 at 30 ml/hr, Prosource TID, Free Water Flush: 50 Q8 via GT x 2 days & TPN D30%, AA10% at 60 ml/hr via central line % PO intake: NPO Last BM: x1 04/21 (3 days ago) Estimated Energy Expenditure (kcals/day) 1812 kcal (PSU 2003: vent/ ICU. MSJ 1445, Tmax 36.77, Ve 16) Estimated Protein Required (g/day) 80-101 (1.2-1.5 g/kg CBW (67 kg) d/t critically ill) Estimated Fluid Required (l/day) 1.8L (1 ml/kcal/day for GERIAT maintenance) Problem/Etiology/Signs/Symptoms * Suboptimal EN support R/T risk for overfeeding AEB current TF prescription exceeds 160% of estimated caloric needs and meets 161% of upper end of estimated protein needs. *Resolved * Suboptimal nutrient intakes R/T decreased appetite, labored breathing AEB documented decreased PO intake.*N/A * Inadequate TPN support R/T metabolic demands AEB estimated nutritional requirements for respiratory failure/critical illness. *Ongoing Expected Outcomes/Goals EN tolerated at goal rate, EN provides >95% estimated nutritional needs, improvements in skin integrity, nutrition-related labs trending WNL, weight maintenance, BM q 1-3 days Dietitian Recommendations * If pt condition improves: Glucerna 1.2 @ 50mL/hr, Prosource TID, FWF 50mL q8h via GT Provides (w/ prosource and prop): 1779 kcal, 117g PRO, 1116 mL free water (inc FWF) Meets: 98% of est kcal, 116% of upper est PRO, 62% est fluid needs * Consider modification of insulin regimen for improved glycemic control Follow up High Risk: RD to F/U within 2-3 days YUNG, MPH, RD
--- NOTE | 2022-04-24 09:58 | NUR ---
Dietitian Recommendations * If pt condition improves: Glucerna 1.2 @ 50mL/hr, Prosource TID, FWF 50mL q8h via GT Provides (w/ prosource and prop): 1779 kcal, 117g PRO, 1116 mL free water (inc FWF) Meets: 98% of est kcal, 116% of upper est PRO, 62% est fluid needs * Consider modification of insulin regimen for improved glycemic control GS, MPH, RD Please refer to Nutrition F/U for further details. Thanks!
--- NOTE | 2022-04-24 10:00 | NUR ---
PT REMAINS UNSTEADY AND IS NOW PRONED, FAMILY MEETING WITH DR PURCELL WHO APPRECIATED FAMILY REQUEST FOR DNR THOUGH WE WILL DO EVERYTHING POSSIBLE FOR PATIENT AND THERE WILL BE NO [id number] OF CARE//PT REMAINS IN TERRIBLE DISTRESS BUT WELL SEDATED, O2 SAT INCREASED TO 68% AFTER PT PRONED/CONTINUE TO FIGHT FOR PT//MW
[2022-04-24] MEDS ORDERED: CALCIUM CHLORIDE 1 GM in NS 100 ML IV ONE (11:00)
[2022-04-24] MEDS ORDERED: MICAFUNGIN SODIUM 50 MG in NS 50 ML IV SCH (12:30)
[2022-04-24] MEDS: PANTOPRAZOLE SODIUM 40 MG/VIAL (PROTONIX) IVP SCH (12:52)
[2022-04-24] MEDS: ERAVACYCLINE DI-HYDROCHLORIDE 65 MG in NS 250 ML IV SCH (13:00)
--- NOTE | 2022-04-24 13:44 | NUR ---
PT ON 0.2MICS LEVOPHED AND 0.04 OF VASAOPRESSOR, FIO2 REMAINS 100% AND PT STILL ON PCV-BS 350 AND K IS HIGH, TREATED WITH CA+ INSULIN, D50 AND INSULIN/PT REMAINS VERY UNSTABLE THOUGH WELL SEDATED//FAMILY () AND FRIENDS [employer] [employer] AT BEDSIDE SINGING AND PRAYING FOR PT//MW
[2022-04-24] MEDS ORDERED: VASOPRESSIN 20 UNITS/ML VIAL IV ONE (14:47)
--- NOTE | 2022-04-24 15:00 | NUR ---
PT FULL DNR, STILL PRONED, CONSIDERING TERMINAL EXTUBATION AND WITHDRAWAL OF CARE TO COMFORT ONLY//PT O2 SAT STILL NOT IMPROVING/LUNG COMPLIANCE ABSENT/MW
--- NOTE | 2022-04-24 16:59 | NUR ---
RT NOTES PER DR PURCELL ORDERS: 0818 PC 32 RR 30 0824 AC 0825 PC 0835 VC+ 350 F30 +8 0905 PRVC 300 F35 (IF PRESSURES STAY ABOVE 40, SWITCH TO PRESSURE CONTROL) PT PIP'S @36. WILL MONITOR, RN AWARE. Addendum: 04/24/22 at 1717 by Beverly Greenberg RT Amended: Links added.
[2022-04-24] MEDS ORDERED: MORPHINE SULFATE IN 0.9 % NACL 100 ML IV PRN (17:15)
[2022-04-24] MEDS ORDERED: NALOXONE HCL 0.4 MG/ML AMP (NARCAN) IVP PRN (17:15)
--- NOTE | 2022-04-24 17:24 | NUR ---
PT WANTS ALL CARE WITHDRAWN EXCEPT COMFORT/MORPHINE DRIP ADDED, DR PURCELL AWARE/TERMINAL EXTUBATION TO COME//MW
--- NOTE | 2022-04-24 18:00 | NUR ---
PRESSORS, ALL MEDS STOPPED, MORPHINE DRIP STARTED PER FAMILY REQUEST TO WITHDRAW ARE AND EXTUBATE, PT PLACED SUPINE,//PT IMMEDIATELY PT HEART STOPPED, PT PRONOUNCED AT 1805//FAMILY AT BEDSIDE ), STEPDAUGHTER)/[facility], CORONERS, MDS CALLED//MW
--- NOTE | 2022-04-24 18:06 | NUR ---
RT NOTES 1800 PT SUPINED AND TERMINALLY EXTUBATED AND PLACED ON 2L NC PER DR JOVEL. Addendum: 04/24/22 at 1808 by Beverly Greenberg RT Amended: Links added.
--- NOTE | 2022-04-24 18:24 | NUR ---
notified doctors Noemí Juarez, and Jared that pt at 180
--- NOTE | 2022-04-24 18:26 | NUR ---
[facility] RELEASED PT. I SPOKE WITH DONAVAN. REFERRAL NUMBER [id number]
--- NOTE | 2022-04-24 18:48 | NUR ---
BODY RELEASED BY CASHIER HOST/HOSTESS. SPOKE WITH Rosa Isela WARNER.
== END 2022-04-24 18:04 | DRG 870 ==
LOC: SED 02:49 → SIC 05:26 → STU 03-31 13:53 → SIC 04-02 03:59
PROVIDERS: ADMIT Internal Medicine; ATTEND Internal Medicine
PROC: 5A1955Z Respiratory Ventilation, Greater than 96 Consecutive Hours (ICD-10-PCS; principal; 2022-03-27)
PROC: 0BH17EZ Insertion of Endotracheal Airway into Trachea, Via Natural or Artificial Opening (ICD-10-PCS; 2022-03-27)
PROC: 02HV33Z Insertion of Infusion Device into Superior Vena Cava, Percutaneous Approach (ICD-10-PCS; 2022-03-27)
PROC: B548ZZA Ultrasonography of Superior Vena Cava, Guidance (ICD-10-PCS; 2022-03-27)
PROC: 4A00X4Z Measurement of Central Nervous Electrical Activity, External Approach (ICD-10-PCS; 2022-04-03)
PROC: 02HV33Z Insertion of Infusion Device into Superior Vena Cava, Percutaneous Approach (ICD-10-PCS; 2022-04-18)
PROC: B548ZZA Ultrasonography of Superior Vena Cava, Guidance (ICD-10-PCS; 2022-04-18)
PROC: 30233N1 Transfusion of Nonautologous Red Blood Cells into Peripheral Vein, Percutaneous Approach (ICD-10-PCS; 2022-04-19)
PROC: 0DH63UZ Insertion of Feeding Device into Stomach, Percutaneous Approach (ICD-10-PCS; 2022-04-21)
PROC: 0BH17EZ Insertion of Endotracheal Airway into Trachea, Via Natural or Artificial Opening (ICD-10-PCS; 2022-04-21)
PROC: 5A1945Z Respiratory Ventilation, 24-96 Consecutive Hours (ICD-10-PCS; 2022-04-21)
DX: A41.9 Sepsis, unspecified organism (principal); J15.0 Pneumonia due to Klebsiella pneumoniae; J80 Acute respiratory distress syndrome; R65.21 Severe sepsis with septic shock; E43 Unspecified severe protein-calorie malnutrition; N17.0 Acute kidney failure with tubular necrosis; E87.0 Hyperosmolality and hypernatremia; J47.0 Bronchiectasis with acute lower respiratory infection; I48.92 Unspecified atrial flutter; B49 Unspecified mycosis; Y95 Nosocomial condition; E78.00 Pure hypercholesterolemia, unspecified; I25.10 Atherosclerotic heart disease of native coronary artery without angina pectoris; I27.20 Pulmonary hypertension, unspecified; J98.2 Interstitial emphysema; D63.8 Anemia in other chronic diseases classified elsewhere; D69.6 Thrombocytopenia, unspecified; E87.6 Hypokalemia; E83.39 Other disorders of phosphorus metabolism; K29.70 Gastritis, unspecified, without bleeding; K44.9 Diaphragmatic hernia without obstruction or gangrene; N40.0 Benign prostatic hyperplasia without lower urinary tract symptoms; T38.0X5A Adverse effect of glucocorticoids and synthetic analogues, initial encounter; Z66 Do not resuscitate; Z20.822 Contact with and (suspected) exposure to COVID-19; I12.9 Hypertensive chronic kidney disease with stage 1 through stage 4 chronic kidney disease, or unspecified chronic kidney disease; E11.22 Type 2 diabetes mellitus with diabetic chronic kidney disease; N18.9 Chronic kidney disease, unspecified; Z79.4 Long term (current) use of insulin; Z79.899 Other long term (current) drug therapy; Z68.25 Body mass index [BMI] 25.0-25.9, adult; Z74.01 Bed confinement status; Y92.89 Other specified places as the place of occurrence of the external cause; Z79.82 Long term (current) use of aspirin; Z87.01 Personal history of pneumonia (recurrent); Z87.891 Personal history of nicotine dependence; Z93.1 Gastrostomy status
CPT/HCPCS: 36415; 36600; 71045; 71250-TC; 76376; 80048; 80053; 80076; 81000; 82085; 82550; 82607; 82746; 82803-TC; 82962; 83540; 83550; 83605; 83735; 83880; 84100; 84478; 84484; 85007; 85025; 85027; 85049-TC; 85379; 85384; 85610-TC; 85730-TC; 86022; 86886; 86900; 86901; 86920; 87040; 87070-TC; 87081; 87086; 87101; 87116; 87205-TC; 92610-GN; 93005; 94002; 94003; 94640; 94660; 94760; 95816; 96361; 96365; 96367; 96375; 97110-GP; 97112-GP; 97530-GP; 99285; C9113; G0378; J0122; J0282; J0330; J0456; J0610; J0692; J0696; J1030; J1450; J1650; J1815; J1940; J2060; J2270; J2370; J2543; J2704; J2765; J2930; J2997; J3010; J3475; J3480; J3490; J7050; J7060; J7120; J7131; J7613; J7626; P9021; P9046